=== PATIENT | female | born 1955 | race Caucasian/White ===

== ENCOUNTER 2019-04-18 14:32 | Inpatient (IN) ==
--- OUTSIDE RECORDS SUMMARY | 2019-04-18 14:35 | External Medical Summary | Continuity of Care Document ---
:1955 Author Name Emre Montoya, Provider Address Unavailable Unavailable , Care Team Providers Name Role Phone Edgar Pascale BHAT Unavailable [email or web address] Unavailable [email or web address] Gildardo HUTCHINSON Unavailable Unavailable Unavailable Unavailable Unavailable Problems Cough (786.2) (R05) Obstructive sleep apnea (327.23) (G47.33) Asthma (493.90) (J45.909) Dyslipidemia (272.4) (E78.5) Insulin pump in place (V45.85) (Z96.41) Depression (311) (F32.9) Counseling for insulin pump (V65.46) (Z46.81) Disrupted sleep-wake cycle (307.45) (G47.20) Abrasion of right eye (918.9) (S05.8X1A) Bunion (727.1) (M21.619) Alcohol drinker (V49.89) (Z78.9) Type 1 diabetes mellitus with long-term current use of insulin (250.01) (E10.9) Hypothyroidism (244.9) (E03.9) Hypertension (401.9) (I10) Hypothyroidism, postablative (244.1) (E89.0) Status post gastric bypass for obesity (V45.86) (Z98.84) Graves disease (242.00) (E05.00) Allergies and Adverse Reactions No Known Drug Allergies (Allergy) Medications Lisinopril 2.5 MG Oral Tablet; TAKE ONE-HALF TABLET BY MOUTH ONCE DAILY [facility] Start: 05-Jan-2012 Quantity: 45 Refills: 3 Multivitamin Adult Oral Tablet; TAKE 1 TABLET DAILY. Start: 01-Jan-2018 Refills: 0 Biotin 1000 MCG Oral Tablet Chewable; Take 1 tablet daily Start: 15-Oct-2018 Refills: 0 Vitamin D 1000 UNIT Oral Tablet; TAKE 1 TABLET DAILY. Start: 15-Oct-2018 Refills: 0 buPROPion HCl - 100 MG Oral Tablet; TAKE 1 TABLET DAILY. Refills: 0 Calcium Citrate +D 315-250 MG-UNIT Oral Tablet; TAKE 2 TABLE T Daily Start: 17-Nov-2013 Refills: 0 Ankur Contour Next Test STRP; Testing 6 times daiy. HOME Hern[facility]dez Start: 19-Sep-2013 Quantity: 6 100 EA Box Refills: 3 NovoLOG 100 UNIT/ML Subcutaneous Solutio n; USE 35 UNITS PER SLIDING SCALE IN INSULIN PUMP DAILY HOME Hernández Start: 26-Aug-2018 Quantity: 4 10 ML Vial Refills: 3 Levothyroxine Sodium 175 MCG Oral Tablet ; TAKE 1 TABLET BY MOUTH six days a week . ARIANNA Sidhu Start: 28-Dec-2016 Quantity: 90 Refills: 3 Procedures History of Section Classical St atus: Completed History of Sinus Surgery Status: Complet ed Immunizations Pneumococcal polysaccharide vaccine, 23 valent On: 01-Mar-20 10 Lot #: [id number], [employer] Influenza On: 17-Aug-2014 9:42 Lot #: [id number], [employer] Influenza On: 08-Jul-2015 Influenza On: 08-Aug-2016 Family History Brother Family history of Obstructive Sleep Apnea Status: Active Social History - Smoking Status Former smoker Plan of Treatment Planned Observations Planned Goals not documented Results No Known Results Results not documented Encounters Appointment; Pascale Hernández CRNP 15-Oct-2018 8:30 Encounter Diagnosis: Problem not documented Appointment; Pascale Hernández CRNP 06-May-2018 8:30 Encounter Diagnosis: Problem not documented Appointment; Pascale Hernández CRNP 01-Jan-2018 8:30 Encounter Diagnosis: Problem not documented Appointment; [facility] 26-Oct-2017 11:00 Encounter Diagnosis: Problem not documented Appointment; Pascale Hernández CRNP 03-Jul-2017 8:30 Encounter Diagnosis: Problem not documented Appointment; Pascale Hernández CRNP 14-Apr-2019 15:30 Encounter Diagnosis: Problem not documented
[2019-04-18] MEDS ORDERED: SODIUM CHLORIDE 0.9% 1000ML 2,000 ML IV ONE (15:17)
[2019-04-18] MEDS ORDERED: ACETAMINOPHEN 1,000 MG/100 ML VIAL IV STA (15:21)
[2019-04-18] MEDS ORDERED: ONDANSETRON INJ 2 MG/ML 2 ML VIAL IV STA (15:21)
[2019-04-18 15:54] LABS: Basophils # (auto) 0.01 K/uL (0-0.2); Basophils % (auto) 0.2 %; Eosinophils # (auto) 0.02 K/uL (0-0.5); Eosinophils % (auto) 0.3 %; Hemoglobin 12.4 g/dL (12.0-16.0); Lymphocytes # (auto) 0.67 K/uL (1.2-3.4); Lymphocytes % (auto) 10.2 %; Mean Corpuscular Hgb Conc 32.6 g/dL (32-36); Mean Corpuscular Volume 85.4 fL (80-100); Mean Platelet Volume 9.8 fL (7.4-10.4); Monocytes % (auto) 16.7 %; Neutrophils % (auto) 72.6 %; Platelet Count 127 K/uL (130-400); RDW Coefficient of Variation 13.8 % (11.5-14.5); RDW Standard Deviation 43.5 fL (36.4-46.3); Red Blood Count 4.45 M/uL (4.2-5.4)
[2019-04-18 16:13] LABS: Albumin Level 3.2 gm/dl (3.4-5.0); BUN Creatinine Ratio 12.4 (10-20); Calcium 8.7 mg/dl (8.5-10.1); Creatinine Clr Calc Pharmacy 73.9 ml/min; Est GFR (African American) 108.9; Potassium 4.2 mmol/L (3.5-5.1)
[2019-04-18 16:15] LABS: Bilirubin,Total 0.3 mg/dl (0.2-1); Globulin 3.1 gm/dl (2.5-4.0); Total Protein 6.3 gm/dl (6.4-8.2)
[2019-04-18 17:41] LABS: Appearance Urine Clear (Clear); Bilirubin Urine Negative (Negative); Blood Urine Negative (Negative); Color Urine Dark Yellow; Glucose Urine UA Negative (Negative); Ketones Urine Trace (Negative); Leukocyte Esterase Urine Negative (Negative); Nitrite Urine Negative (Negative); Protein Urine Negative (Negative); Specific Gravity Urine 1.028 (1.000-1.030); Urobilinogen Urine Negative (Negative)
[2019-04-18] MEDS ORDERED: IOVERSOL 100ml IV PRN (19:08)
--- NOTE | 2019-04-18 19:27 | CT Scan Report ---
CT SCAN OF THE ABDOMEN AND PELVIS WITH IV CONTRAST CLINICAL HISTORY: Generalized abdominal pain. COMPARISON STUDY: No priors. TECHNIQUE: Following the IV administration of 94 cc of Optiray 320, CT scan of the abdomen and pelvi s is performed from the lung bases to the proximal femora. Images are reviewed in the axial, sagittal , and coronal planes. IV contrast was administered without complication. Oral contrast was utilized. A dose lowering technique was utilized adhering to the principles of ALARA. CT DOSE: 244.58 mGy.cm FINDINGS: Lung bases: The heart is normal in size and without pericardial effusion. The lung bases are clear no ting bibasilar scarring/atelectasis. Liver: The contrast-enhanced liver is normal in size, contour, and attenuation. Fatty infiltration is seen adjacent to falciform ligament. There is no intrahepatic biliary ductal dilatation. The hepatic veins and portal veins are patent. Gallbladder: The gallbladder is distended but otherwise normal in appearance. Spleen: Normal in size and attenuation. Pancreas: The pancreas is moderately atrophic. There is an indeterminant ill-defined low-attenuation structure seen either within or adjacent the pancreatic tail on image #93. This measures 2.6 x 2.0 cm . Adrenal glands: Unremarkable. Kidneys: The contrast enhanced kidneys are normal in size and without hydronephrosis. The kidneys enh ance symmetrically. Abdominal vasculature: The abdominal aorta is normal in course and caliber noting mild to moderate at herosclerotic calcification. Stomach and bowel: There is wall thickening and edema identified throughout the colon and rectum. The re is associated pericolonic infiltration and fluid. The appearance is consistent with a severe proct ocolitis. Postoperative change is consistent with a history of Tiburcio-en-Y gastric bypass surgery. Ther e is no bowel obstruction. Enteric contrast reaches the colon. The appendix is normal as visualized. Peritoneum: There is trace pelvic ascites. No intraperitoneal free air is seen. There is a small fat- containing umbilical hernia. Lymphadenopathy: Prominent mesenteric lymph nodes measure up to 9 mm in short axis. These are likely on a reactive basis. Pelvic viscera: The bladder is decompressed and not well evaluated. The uterus is normal as imaged. N o adnexal lesion is seen. Surgical clips are noted in the pelvis. Skeletal structures: The skeletal structures are osteopenic. Moderate lumbosacral spondylosis is obse rved. No lytic or blastic lesions are seen. IMPRESSION: 1. Findings are consistent with a severe proctocolitis. This is likely on an infectious or inflammato ry basis in this age group. 2. Postoperative change is consistent with a Tiburcio-en-Y gastric bypass procedure. No bowel obstruction is identified. 3. There is an ill-defined low-attenuation structure seen within or adjacent to the pancreatic tail. This measures up to 2.6 cm and is of indeterminant etiology and significance. Pancreatic neoplasm is the diagnosis of exclusion. Short-term nonemergent GI follow-up is recommended. 4. The gallbladder is distended but otherwise normal in appearance. Correlate with clinical findings and serum bilirubin levels. 5. Prominent mesenteric lymph nodes are likely reactive basis. 6. Additional findings as above. Electronically signed by: Mateo Mckeon M.D. 04/18/2019 7:25 PM
[2019-04-18] MEDS ORDERED: CIPROFLOXACIN 400 MG/200 ML BAG IV STA (19:43)
[2019-04-18] MEDS ORDERED: metroNIDAZOLE 500 MG/100 ML BAG IV STA (19:49)
--- NOTE | 2019-04-18 20:25 | Emergency Department Note ---
Entered by Jenni Whiting acting as a scribe for Rigo Cain MD History of Present Illness General Chief complaint: Dehydration Stated complaint: DEHYDRATION,DIARRHEA Time Seen by Provider: 04/18/19 14:42 Source: patient Mode of arrival: ambulatory Limitations: no limitations History of Present Illness Onset (ago): day(s) 4 Radiation: non-radiation Pain Consistency: + constant Maximum Pain Intensity: 10 Relieved By: + none Exacerbated By: + other (Recent nausea, vomiting and diarrhea) Associated symptoms: + fever/chills, + nausea/vomiting and + other (+diarrhea); no chest pain, no cough (or cold symptoms) and no shortness of breath The patient is a 63 year old female who presents to the ED with complaints of possible dehydration. She state she has experienced nausea, vomiting and diarrhea for the past 4 days. The diarrhea is "like water" and non-bloody. She thinks she has been febrile. She denies any cough or cold symptoms, chest pain or shortness of breath. She denies any recent antibiotic use or recent sick contacts. She did eat a [employer] sandwich 4 days ago that she states may have made her sick. The patient is diabetic but states her sugars have been running normal. She underwent gastric bypass surgery 6 years ago. Home Medications Home Medications Medication Instructions Recorded Confirmed Type biotin 10,000 mcg PO DAILY 04/18/19 04/18/19 History bupropion HCl 100 mg PO DAILY 04/18/19 04/18/19 History calcium carbonate-vitamin D3 1 tab PO BID 04/18/19 04/18/19 History [Calcium 500 + D] cholecalciferol (vitamin D3) 1,000 unit PO DAILY 04/18/19 04/18/19 History [Vitamin D3] cyanocobalamin (vitamin B-12) 1,000 mcg IM .[id number] 04/18/19 04/18/19 History hydroxyzine HCl 25 mg PO Q6H PRN 04/18/19 04/18/19 History insulin aspart U-100 [Novolog 0 unit CONTINUOUS SUBCUTANEOUS 04/18/19 04/18/19 History U-100 Insulin aspart] INFUSION DIRECTED levothyroxine 175 mcg PO DAILY 04/18/19 04/18/19 History lisinopril 1.25 mg PO DAILY 04/18/19 04/18/19 History uynefgfm-xwgp-OB-calcium-mins 1 tab PO DAILY 04/18/19 04/18/19 History [Women's One Daily] venlafaxine 75 mg PO DAILY 04/18/19 04/18/19 History zinc 50 mg PO DAILY 04/18/19 04/18/19 History Allergies Allergy/AdvReac Type Severity Reaction Status Date / Time petrolatum,white AdvReac Severe Swelling Verified 04/18/19 15:50 [From Petroleum Jelly] around eyes Past Med/Surg History Medical History Diabetes mellitus Surgical History History of gastric bypass Social History Feels Safe at Home: Yes Smoking Status: Never smoker Review of Systems See HPI for pertinent positives & negatives. and A total of 10 systems reviewed and were otherwise negative Physical Exam Vital Signs Vital Signs - 24 hr 04/18/19 14:34 04/18/19 15:40 04/18/19 16:21 Temperature 37.6 C H 37.1 C Temperature Source Oral Oral Sepsis Recent Fever Within 48 Hours No Sepsis New/Unexplained Change in Mental Status No Sepsis Action Taken by Nursing No Action Required Pulse Rate 125 H Pulse Rate [Apical] 88 Respiratory Rate 16 20 Respiratory Effort / Characteristics Respiratory Depth Blood Pressure 164/81 H Blood Pressure [Left Arm] 147/75 H Blood Pressure Mean 108 Blood Pressure Mean [Left Arm] 99 Pulse Oximetry 96 97 97 Oxygen Delivery Method Room Air Room Air Room Air 04/18/19 18:00 04/18/19 21:28 Temperature 39 C H Temperature Source Oral Sepsis Recent Fever Within 48 Hours Sepsis New/Unexplained Change in Mental Status Sepsis Action Taken by Nursing Pulse Rate Pulse Rate [Apical] 72 88 Respiratory Rate 20 18 Respiratory Effort / Characteristics Non-Labored Respiratory Depth Normal Blood Pressure Blood Pressure [Left Arm] 147/75 H 161/77 H Blood Pressure Mean Blood Pressure Mean [Left Arm] 99 105 Pulse Oximetry 99 95 Oxygen Delivery Method Room Air GENERAL: Awake, alert, fatigued-appearing, in no distress HENT: Normocephalic, atraumatic. Oropharynx with dry mucous membranes and otherwise unremarkable. EYES: Normal conjunctiva. Sclera non-icteric. NECK: Supple. No nuchal rigidity. FROM. No JVD. RESPIRATORY: CTAB. CARDIAC: Tachycardic heart rate, normal rhythm. Extremities warm and well perfused. Pulses equal. ABDOMEN: Soft, non-distended. Mild lower abdominal tenderness to palpation. No rebound or guarding. No masses. RECTAL: Deferred. MUSCULOSKELETAL: Chest examination reveals no tenderness. The back is symmetrical on inspection without obvious abnormality. There is no CVA tenderness to palpation. No joint edema. LOWER EXTREMITIES: Calves are equal size bilaterally and non-tender. No edema. No discoloration. NEURO: Normal sensorium. No sensory or motor deficits noted. SKIN: No rash or jaundice noted. Course 1502: The patient was evaluated in room C8 and a complete history and physical were performed. 2009: I reevaluated the patient. She is resting comfortably. I discussed her results and my recommendation she remain in the hospital for further evaluation and management and he verbalized complete understanding and agreement. 2030: I discussed the patients case with admitting resident Dr. Crouch, with Dr. Walter, [facility]. The patient will be further evaluated. Consultations Consultation #1: I discussed the patients case with Dr. Walter [facility]. The patient will be further evaluated. Time: 20:30 Administered Medications Sodium Chloride (Nss 1000ml) 1,000 mls @ 999 mls/hr IV .Q1H1M ONE Stop: 04/18/19 22:25 Last Admin: 04/18/19 21:28 Dose: 999 mls/hr Documented by: [id number] Ioversol (Optiray 320 100ml) 94 ml IV ONCE PRN PRN Reason: Interaction Checking Stop: 04/22/19 19:07 Last Admin: 04/18/19 19:09 Dose: 94 ml Documented by: [id number] Discontinued Medications Acetaminophen (Ofirmev) 1,000 mg in 100 mls @ 400 mls/hr IV NOW STA Stop: 04/18/19 15:35 Last Infusion: 04/18/19 16:04 Dose: 0 mls/hr Documented by: [id number] Admin: 04/18/19 15:51 Dose: 400 mls/hr Documented by: [id number] Sodium Chloride (Nss 1000ml) 2,000 mls @ 999 mls/hr IV .Q2H1M ONE Stop: 04/18/19 17:17 Last Infusion: 04/18/19 17:34 Dose: 0 mls/hr Documented by: [id number] Admin: 04/18/19 15:51 Dose: 999 mls/hr Documented by: [id number] Ciprofloxacin (Cipro) 400 mg in 200 mls @ 100 mls/hr IV NOW STA; Protocol Stop: 04/18/19 21:42 Last Infusion: 04/18/19 21:11 Dose: 0 mls/hr Documented by: [id number] Admin: 04/18/19 21:02 Dose: 100 mls/hr Documented by: [id number] Metronidazole (Flagyl) 500 mg in 100 mls @ 100 mls/hr IV NOW STA Stop: 04/18/19 20:48 Last Infusion: 04/18/19 21:12 Dose: 0 mls/hr Documented by: [id number] Admin: 04/18/19 20:02 Dose: 100 mls/hr Documented by: [id number] Ondansetron HCl (Zofran) 4 mg IV NOW STA Stop: 04/18/19 15:22 Last Admin: 04/18/19 15:51 Dose: 4 mg Documented by: [id number] Medical Decision Making Differential Diagnosis Differential diagnoses includes but is not limited to gastritis, peptic ulcer disease, GERD, gallbladder disease, pancreatitis, small bowel obstruction, acute coronary syndrome, pericarditis, ischemic bowel, irritable bowel disease, irritable bowel syndrome, appendicitis, diverticulitis, malignancy, hernia, urinary tract infection, torsion, perforation, trauma, infectious. Medical Records Attestation: I reviewed the patient's medical records. Home Medications Current Medication List: was personally reviewed by me Laboratory Data Attestation: I reviewed the patient's lab results. Result diagrams: 04/18/19 15:40 04/18/19 15:40 Lab Results 04/18/19 04/18/19 04/18/19 Range/Units 15:40 15:40 17:13 WBC 6.60 (4.8-10.8) K/uL RBC 4.45 (4.2-5.4) M/uL Hgb 12.4 (12.0-16.0) g/dL Hct 38.0 (37-47) % MCV 85.4 (80-100) fL MCH 27.9 (25-34) pg MCHC 32.6 (32-36) g/dL RDW Std Deviation 43.5 (36.4-46.3) fL RDW Coeff of Bogdan 13.8 (11.5-14.5) % Plt Count 127 L (130-400) K/uL MPV 9.8 (7.4-10.4) fL Immature Gran % (Auto) 0.0 % Neut % (Auto) 72.6 % Lymph % (Auto) 10.2 % [place] % (Auto) 16.7 % Eos % (Auto) 0.3 % Baso % (Auto) 0.2 % Immature Gran # (Auto) 0.00 (0.00-0.02) K/uL Neut # (Auto) 4.80 (1.4-6.5) K/uL Lymph # (Auto) 0.67 L (1.2-3.4) K/uL [place] # (Auto) 1.10 H (0.11-0.59) K/uL Eos # (Auto) 0.02 (0-0.5) K/uL Baso # (Auto) 0.01 (0-0.2) K/uL Sodium 132 L (136-145) mmol/L Potassium 4.2 (3.5-5.1) mmol/L Chloride 97 L (98-107) mmol/L Carbon Dioxide 31 (21-32) mmol/L Anion Gap 4.0 (3-11) BUN 9 (7-18) mg/dl Creatinine 0.69 (0.6-1.2) mg/dl Est Cr Clr Drug Dosing 73.9 ml/min Est GFR ( Amer) 108.9 Est GFR (Non-Af Amer) 94.0 BUN/Creatinine Ratio 12.4 (10-20) Glucose 143 H (70-99) mg/dl Calcium 8.7 (8.5-10.1) mg/dl Total Bilirubin 0.3 (0.2-1) mg/dl AST 20 (15-37) U/L ALT 21 (12-78) U/L Alkaline Phosphatase 71 (45-117) U/L Total Protein 6.3 L (6.4-8.2) gm/dl Albumin 3.2 L (3.4-5.0) gm/dl Globulin 3.1 (2.5-4.0) gm/dl Albumin/Globulin Ratio 1.0 (0.9-2) Lipase 29 L (73-393) U/L Urine Color Dark Yellow Urine Appearance Clear (Clear) Urine pH 6.0 (4.5-7.5) Ur Specific [place] 1.028 (1.000-1.030) Urine Protein Negative (Negative) Urine Glucose (UA) Negative (Negative) Urine Ketones Trace H (Negative) Urine Blood Negative (Negative) Urine Nitrite Negative (Negative) Urine Bilirubin Negative (Negative) Urine Urobilinogen Negative (Negative) Ur Leukocyte Esterase Negative (Negative) Stl C. diff Tox B Gene (Neg) Stl C.difficile Tox A&B (Negative) 04/18/19 Range/Units 17:15 WBC (4.8-10.8) K/uL RBC (4.2-5.4) M/uL Hgb (12.0-16.0) g/dL Hct (37-47) % MCV (80-100) fL MCH (25-34) pg MCHC (32-36) g/dL RDW Std Deviation (36.4-46.3) fL RDW Coeff of Bogdan (11.5-14.5) % Plt Count (130-400) K/uL MPV (7.4-10.4) fL Immature Gran % (Auto) % Neut % (Auto) % Lymph % (Auto) % [place] % (Auto) % Eos % (Auto) % Baso % (Auto) % Immature Gran # (Auto) (0.00-0.02) K/uL Neut # (Auto) (1.4-6.5) K/uL Lymph # (Auto) (1.2-3.4) K/uL [place] # (Auto) (0.11-0.59) K/uL Eos # (Auto) (0-0.5) K/uL Baso # (Auto) (0-0.2) K/uL Sodium (136-145) mmol/L Potassium (3.5-5.1) mmol/L Chloride (98-107) mmol/L Carbon Dioxide (21-32) mmol/L Anion Gap (3-11) BUN (7-18) mg/dl Creatinine (0.6-1.2) mg/dl Est Cr Clr Drug Dosing ml/min Est GFR ( Amer) Est GFR (Non-Af Amer) BUN/Creatinine Ratio (10-20) Glucose (70-99) mg/dl Calcium (8.5-10.1) mg/dl Total Bilirubin (0.2-1) mg/dl AST (15-37) U/L ALT (12-78) U/L Alkaline Phosphatase (45-117) U/L Total Protein (6.4-8.2) gm/dl Albumin (3.4-5.0) gm/dl Globulin (2.5-4.0) gm/dl Albumin/Globulin Ratio (0.9-2) Lipase (73-393) U/L Urine Color Urine Appearance (Clear) Urine pH (4.5-7.5) Ur Specific [place] (1.000-1.030) Urine Protein (Negative) Urine Glucose (UA) (Negative) Urine Ketones (Negative) Urine Blood (Negative) Urine Nitrite (Negative) Urine Bilirubin (Negative) Urine Urobilinogen (Negative) Ur Leukocyte Esterase (Negative) Stl C. diff Tox B Gene Positive Cdiff Gene H (Neg) Stl C.difficile Tox A&B Positive Cdiff Toxin A* (Negative) Imaging Data Radiologist's Impression: Radiology results as stated below per my review and the radiologist's interpretation: CT SCAN OF THE ABDOMEN AND PELVIS WITH IV CONTRAST CLINICAL HISTORY: Generalized abdominal pain. COMPARISON STUDY: No priors. TECHNIQUE: Following the IV administration of 94 cc of Optiray 320, CT scan of the abdomen and pelvis is performed from the lung bases to the proximal femora. Images are reviewed in the axial, sagittal, and coronal planes. IV contrast was administered without complication. Oral contrast was utilized. A dose lowering technique was utilized adhering to the principles of ALARA. CT DOSE: 244.58 mGy.cm FINDINGS: Lung bases: The heart is normal in size and without pericardial effusion. The lung bases are clear noting bibasilar scarring/atelectasis. Liver: The contrast-enhanced liver is normal in size, contour, and attenuation. Fatty infiltration is seen adjacent to falciform ligament. There is no intrahepatic biliary ductal dilatation. The hepatic veins and portal veins are patent. Gallbladder: The gallbladder is distended but otherwise normal in appearance. Spleen: Normal in size and attenuation. Pancreas: The pancreas is moderately atrophic. There is an indeterminant ill- defined low-attenuation structure seen either within or adjacent the pancreatic tail on image #93. This measures 2.6 x 2.0 cm. Adrenal glands: Unremarkable. Kidneys: The contrast enhanced kidneys are normal in size and without hydronep hrosis. The kidneys enhance symmetrically. Abdominal vasculature: The abdominal aorta is normal in course and caliber noting mild to moderate atherosclerotic calcification. Stomach and bowel: There is wall thickening and edema identified throughout the colon and rectum. There is associated pericolonic infiltration and fluid. The appearance is consistent with a severe proctocolitis. Postoperative change is consistent with a history of Tiburcio-en-Y gastric bypass surgery. There is no bowel obstruction. Enteric contrast reaches the colon. The appendix is normal as visualized. Peritoneum: There is trace pelvic ascites. No intraperitoneal free air is seen. There is a small fat-containing umbilical hernia. Lymphadenopathy: Prominent mesenteric lymph nodes measure up to 9 mm in short axis. These are likely on a reactive basis. Pelvic viscera: The bladder is decompressed and not well evaluated. The uterus is normal as imaged. No adnexal lesion is seen. Surgical clips are noted in the pelvis. Skeletal structures: The skeletal structures are osteopenic. Moderate lumbosacral spondylosis is observed. No lytic or blastic lesions are seen. IMPRESSION: 1. Findings are consistent with a severe proctocolitis. This is likely on an infectious or inflammatory basis in this age group. 2. Postoperative change is consistent with a Tiburcio-en-Y gastric bypass procedure. No bowel obstruction is identified. 3. There is an ill-defined low-attenuation structure seen within or adjacent to the pancreatic tail. This measures up to 2.6 cm and is of indeterminant etiology and significance. Pancreatic neoplasm is the diagnosis of exclusion. Short-term nonemergent GI follow-up is recommended. 4. The gallbladder is distended but otherwise normal in appearance. Correlate with clinical findings and serum bilirubin levels. 5. Prominent mesenteric lymph nodes are likely reactive basis. 6. Additional findings as above. Electronically signed by: Mateo Mckeon M.D. 04/18/2019 7:25 PM Blood Pressure Blood Pressure Findings: Elevated blood pressure Blood Pressure Disposition: further management by hospitalist JOVAN Dupont The patient is a pleasant 63 y/o woman with a pmhx of IDDM1, gastric bypass who presents to the emergency department with n/v/d and feverishness over the past 4 days with inability to tolerate oral intake per HPI. Patient report glucose has remained within her typical range. Patient denies any recent antibiotics. On arrival the patient is in NAD, temp 37.6, HR 125 and otherwise VSS. Patient appears clinically dry. She has mild lower abdominal ttp without guarding or rebound. WBC, H/H wnl. Platelets 127 without prior for comparison. Chemistry without acidosis. LFTs unremarkable. Lipase 29. UA with trace ketones and otherwise negative for infection. CT abd/pelvis demonstrates severe proctocolitis as well as incidental 2cm pancreatic mass. Patient re-evaluated and feeling improved after IVF hydration with HR 80s. Findings were reviewed. Given patient's IDDM1 in the setting of her colitis and poor oral intake reasonable to admit for further management given high risk of decompensation. Patient is agreeable with this. Given she denies any bloody stool, treatment initiated with Cipro/flagyl. Case with admitting resident Dr. Crouch, with Dr. Walter, [facility] Hospitalist. Subsequently Cdiff screen and confirmatory Toxin PCR positive. Additionally, given possible Ecoli infection from recent [employer] salad Cipro discontinued. IV flagyl and or Vancomycin for Cdiff colitis. Additionally tick born illness labs sent given recent camping trip and TCP. Impression & Plan Colitis due to Clostridium difficile, Proctocolitis, Pancreatic mass, Thrombocytopenia Discharge Plan Visit Data Chief Complaint: Dehydration Stated Complaint: DEHYDRATION,DIARRHEA ED Provider: Rigo Cain Discharge Problem: Colitis due to Clostridium difficile, Proctocolitis, Pancreatic mass, Thrombocytopenia Patient Disposition: Being Evaluated by Hospitalist Forms Stand Alone Forms: My [facility] Prescriptions Prescriptions: No Action levothyroxine 175 mcg tablet 175 mcg PO DAILY RF: 0 venlafaxine 75 mg capsule,extended release 24hr 75 mg PO DAILY RF: 0 bupropion HCl 100 mg tablet sustained-release 12 hr 100 mg PO DAILY RF: 0 Novolog U-100 Insulin aspart 100 unit/mL solution continuous subcutaneous infusion DIRECTED RF: 0 biotin 10,000 mcg Capsule 10,000 mcg PO DAILY RF: 0 cyanocobalamin (vitamin B-12) 1,000 mcg/mL solution 1,000 mcg IM .[id number] RF: 0 hydroxyzine HCl 25 mg Tablet 25 mg PO Q6H PRN (Reason: Itching) RF: 0 zinc 50 mg Tablet 50 mg PO DAILY RF: 0 lisinopril 2.5 mg tablet 1.25 mg PO DAILY RF: 0 calcium carbonate-vitamin D3 [Calcium 500 + D] 500 mg(1,250mg) -400 unit Tablet 1 tab PO BID RF: 0 Women's One Daily 18 mg iron-400 mcg-500 mg Ca Tablet 1 tab PO DAILY RF: 0 cholecalciferol (vitamin D3) [Vitamin D3] 1,000 unit Capsule 1,000 unit PO DAILY RF: 0 Referrals Referrals: Brittney Payton MD [Primary Care Provider] - The scribe's documentation has been prepared under my direction and personally reviewed by me in its entirety. I confirm that the note above accurately reflects all work, treatment, procedures, and medical decision making performed by me.
[2019-04-18 21:12] LABS: Cdiff Toxin A+B Positive Cdiff Toxin (Negative)
[2019-04-18] MEDS ORDERED: VANCOMYCIN HCL 125 MG/2.5ML SOLN PO STA (21:24)
[2019-04-18] MEDS ORDERED: SODIUM CHLORIDE 0.9% 1000ML 1,000 ML IV ONE (21:25)
[2019-04-18] MEDS ORDERED: NON-FORMULARY MEDICATION (Insulin Aspart U-100 0 UNITS) continuous subcutaneous infusion SCH (21:30)
--- NOTE | 2019-04-18 21:49 | History & Physical Report ---
Date of Service April 18, 2019 Assessment & Plan (1) Proctocolitis: Pt is a pleasant 63yo F PMH T1DM on insulin pump, hypothyroidism, anxiety and depression, gastric bypass 2012 who presents with a 4 day history of profuse diarrhea, found to have proctocolitis in setting of +c.dif toxin. Proctocolitis/Cdiff -IV flagyl TID and PO vanc QID -Maintenance IVF at 125--pt tolerated food in ER; clinically euvolemic, consider DCing with improved PO intake -DC'd IV cipro in light of low platelets/recent camping hx and concern for anaplasmosis -Awaiting further stool testing and anaplasmosis/lyme/ehrlichia Thrombocytopenia -Mild -DCd IV Cipro -Awaiting further stool testing/anaplasma/ehrlicia/lyme -Continue to monitor Pancreatic mass -Incidental finding on CT, measures 2.6 cm -Pt denies unintentional weight loss, digestive issues prior to current issue -Have consulted GI -Have not ordered MRI in setting of acute inflammatory/infectious process in abdomen -Ca 19-9 ordered for AM DM, type 1 -May use own insulin pump -Continue low dose lisinopril for renal protection -Well controlled -A1C pending for AM H/O gastric bypass -Has been doing well, no issues -Holding home vitamin supplements Hypothyroid -Cont levothyroxine 175mcg -Checking TSH with AM labs Anxiety and Depression -Well controlled with current regimen -Cont hydroxyzine, welbutrin, venlafaxine FEN/GI: Carb count T1DM diet, NSS 125/hr Code: full DVTP: heparin SQ BID Dispo: admit to med/surg (2) Colitis due to Clostridium difficile: (3) Thrombocytopenia: (4) Pancreatic mass: (5) Diabetes mellitus: (6) History of gastric bypass: (7) Hypothyroid: (8) Anxiety and depression: History of Present Illness Chief Complaint: Diarrhea Primary Care Provider: Brittney Payton MD Pt is a pleasant 63yo F PMH T1DM on insulin pump, hypothyroidism, anxiety and depression, gastric bypass 2012 who presents with a 4 day history of profuse diarrhea. She reports she thinks this is related to food poisoning, as her symptoms started within a few hours of eating a salad with meat on it from [employer]. She also does note she has been camping for the past week as well. She states she is having profuse, non-bloody, watery diarrhea, minimal nausea, no vomiting, has felt warm but no measured temperature. She states her appetite has been decreased and has not been eating much. Despite the above, she notes her blood sugars to be relatively WNL and cites her insulin pump with CGM helping to control things. She has not used OTC meds to help with the diarrhea. ER course: Vital signs stable with temp of 39*C. CBC, CMP, UA grossly normal with no elevation in WBC, mildly low platelets at 127, and Na of 132. C.dif + for gene and toxin. CT abdomen revealed "severe proctocolitis" as well as an incidental finding of a pancreatic lesion of 2.6cm. She was started on IV cipro/flagyl prior to her c.dif test resulted. In discussing case with ER physician, due to her recent camping history and low platelets with concern for TTP/HUS, the IV cipro was DCd and further labs studies were sent including anaplasmosis, e.coli, shiga, peripheral smear, lyme, etc. She was started on PO vancomycin. Allergies Allergy/AdvReac Type Severity Reaction Status Date / Time petrmayetum,white AdvReac Severe Swelling Verified 04/18/19 15:50 [From Petroleum Jelly] around eyes Home Medications Home Medications Medication Instructions Recorded Confirmed Type biotin 10,000 mcg PO DAILY 04/18/19 04/18/19 History bupropion HCl 100 mg PO DAILY 04/18/19 04/18/19 History calcium carbonate-vitamin D3 1 tab PO BID 04/18/19 04/18/19 History [Calcium 500 + D] cholecalciferol (vitamin D3) 1,000 unit PO DAILY 04/18/19 04/18/19 History [Vitamin D3] cyanocobalamin (vitamin B-12) 1,000 mcg IM .[id number] 04/18/19 04/18/19 History hydroxyzine HCl 25 mg PO Q6H PRN 04/18/19 04/18/19 History insulin aspart U-100 [Novolog 0 unit CONTINUOUS SUBCUTANEOUS 04/18/19 04/18/19 History U-100 Insulin aspart] INFUSION DIRECTED levothyroxine 175 mcg PO DAILY 04/18/19 04/18/19 History lisinopril 1.25 mg PO DAILY 04/18/19 04/18/19 History oezgexqb-aqad-YM-calcium-mins 1 tab PO DAILY 04/18/19 04/18/19 History [Women's One Daily] venlafaxine 75 mg PO DAILY 04/18/19 04/18/19 History zinc 50 mg PO DAILY 04/18/19 04/18/19 History Past Med/Surg History Medical History Diabetes mellitus Surgical History History of gastric bypass Social History Preferred Language: Botswan[place] Communication Ability: Effective 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 Beliefs That Will Affect Care: None Current Living Situation: Spouse Other Information That Helps Us Care for You: No Feels Safe at Home: Yes Safety Concerns: Feels Safe At This Time Smoking Status: Former smoker Hx Alcohol Use: Yes Alcohol type: wine Hx Substance Use: No Review of Systems Review of Systems: All systems reviewed & are unremarkable except as noted in HPI & below Constitutional: + fever and + weakness; no chills Gastrointestinal: + abdominal pain, + bloating, + nausea, + change in bowel habits and + diarrhea/loose stools; no belching, no vomiting, no fecal incontinence and no blood in stools Physical Exam Constitutional: WD/WN, vitals as above + well hydrated, average body habitus and comfortable; not ill appearing, not in distress, not diaphoretic and not edematous Eyes: PERRL, conjunctivae normal, anicteric sclerae ENMT: external ear and nose normal, oropharynx normal Neck: normal visual inspection Respiratory: normal respiratory effort, lungs clear to auscultation Cardiovascular: RRR, no murmur, no edema Gastrointestinal (Abdomen): Inspection/Auscultation: abdomen normal to inspection and + hyperactive bowel sounds; abdomen not distended and no high- pitched sounds Percussion/Palpation: + abdomen tender (RLQ LLQ) and abdomen soft Musculoskeletal: no cyanosis or clubbing, extremities motor strength 5/5 Skin: no rashes, warm and dry normal turgor Neurologic: PERRL, EOMI, accommodation nl, no face palsy, no dysarthria Psychiatric: A+Ox3, euthymic affect Results & Data Vital Signs (Past 12 Hours) Vital Signs Temp Pulse Pulse Resp BP BP Pulse Ox 04/18/19 21:28 39 C H 88 18 161/77 H 95 04/18/19 18:00 72 20 147/75 H 99 04/18/19 16:21 37.1 C 88 20 147/75 H 97 04/18/19 15:40 97 04/18/19 14:34 37.6 C H 125 H 16 164/81 H 96 Laboratory Results 04/18/19 04/18/19 04/18/19 Range/Units 17:15 17:13 15:40 WBC (4.8-10.8) K/uL RBC (4.2-5.4) M/uL Hgb (12.0-16.0) g/dL Hct (37-47) % MCV (80-100) fL MCH (25-34) pg MCHC (32-36) g/dL RDW Std Deviation (36.4-46.3) fL RDW Coeff of Bogdan (11.5-14.5) % Plt Count (130-400) K/uL MPV (7.4-10.4) fL Immature Gran % (Auto) % Neut % (Auto) % Lymph % (Auto) % [place] % (Auto) % Eos % (Auto) % Baso % (Auto) % Immature Gran # (Auto) (0.00-0.02) K/uL Neut # (Auto) (1.4-6.5) K/uL Lymph # (Auto) (1.2-3.4) K/uL [place] # (Auto) (0.11-0.59) K/uL Eos # (Auto) (0-0.5) K/uL Baso # (Auto) (0-0.2) K/uL Peripher Smr Path Cons Pending Sodium (136-145) mmol/L Potassium (3.5-5.1) mmol/L Chloride (98-107) mmol/L Carbon Dioxide (21-32) mmol/L Anion Gap (3-11) BUN (7-18) mg/dl Creatinine (0.6-1.2) mg/dl Est Cr Clr Drug Dosing ml/min Est GFR ( Amer) Est GFR (Non-Af Amer) BUN/Creatinine Ratio (10-20) Glucose (70-99) mg/dl Calcium (8.5-10.1) mg/dl Total Bilirubin (0.2-1) mg/dl AST (15-37) U/L ALT (12-78) U/L Alkaline Phosphatase (45-117) U/L Total Protein (6.4-8.2) gm/dl Albumin (3.4-5.0) gm/dl Globulin (2.5-4.0) gm/dl Albumin/Globulin Ratio (0.9-2) Lipase (73-393) U/L Urine Color Dark Yellow Urine Appearance Clear (Clear) Urine pH 6.0 (4.5-7.5) Ur Specific [place] 1.028 (1.000-1.030) Urine Protein Negative (Negative) Urine Glucose (UA) Negative (Negative) Urine Ketones Trace H (Negative) Urine Blood Negative (Negative) Urine Nitrite Negative (Negative) Urine Bilirubin Negative (Negative) Urine Urobilinogen Negative (Negative) Ur Leukocyte Esterase Negative (Negative) Stl C. diff Tox B Gene Positive Cdiff Gene H (Neg) Stl C.difficile Tox A&B Positive Cdiff Toxin A* (Negative) 04/18/19 04/18/19 Range/Units 15:40 15:40 WBC 6.60 (4.8-10.8) K/uL RBC 4.45 (4.2-5.4) M/uL Hgb 12.4 (12.0-16.0) g/dL Hct 38.0 (37-47) % MCV 85.4 (80-100) fL MCH 27.9 (25-34) pg MCHC 32.6 (32-36) g/dL RDW Std Deviation 43.5 (36.4-46.3) fL RDW Coeff of Bogdan 13.8 (11.5-14.5) % Plt Count 127 L (130-400) K/uL MPV 9.8 (7.4-10.4) fL Immature Gran % (Auto) 0.0 % Neut % (Auto) 72.6 % Lymph % (Auto) 10.2 % [place] % (Auto) 16.7 % Eos % (Auto) 0.3 % Baso % (Auto) 0.2 % Immature Gran # (Auto) 0.00 (0.00-0.02) K/uL Neut # (Auto) 4.80 (1.4-6.5) K/uL Lymph # (Auto) 0.67 L (1.2-3.4) K/uL [place] # (Auto) 1.10 H (0.11-0.59) K/uL Eos # (Auto) 0.02 (0-0.5) K/uL Baso # (Auto) 0.01 (0-0.2) K/uL Peripher Smr Path Cons Sodium 132 L (136-145) mmol/L Potassium 4.2 (3.5-5.1) mmol/L Chloride 97 L (98-107) mmol/L Carbon Dioxide 31 (21-32) mmol/L Anion Gap 4.0 (3-11) BUN 9 (7-18) mg/dl Creatinine 0.69 (0.6-1.2) mg/dl Est Cr Clr Drug Dosing 73.9 ml/min Est GFR ( Amer) 108.9 Est GFR (Non-Af Amer) 94.0 BUN/Creatinine Ratio 12.4 (10-20) Glucose 143 H (70-99) mg/dl Calcium 8.7 (8.5-10.1) mg/dl Total Bilirubin 0.3 (0.2-1) mg/dl AST 20 (15-37) U/L ALT 21 (12-78) U/L Alkaline Phosphatase 71 (45-117) U/L Total Protein 6.3 L (6.4-8.2) gm/dl Albumin 3.2 L (3.4-5.0) gm/dl Globulin 3.1 (2.5-4.0) gm/dl Albumin/Globulin Ratio 1.0 (0.9-2) Lipase 29 L (73-393) U/L Urine Color Urine Appearance (Clear) Urine pH (4.5-7.5) Ur Specific [place] (1.000-1.030) Urine Protein (Negative) Urine Glucose (UA) (Negative) Urine Ketones (Negative) Urine Blood (Negative) Urine Nitrite (Negative) Urine Bilirubin (Negative) Urine Urobilinogen (Negative) Ur Leukocyte Esterase (Negative) Stl C. diff Tox B Gene (Neg) Stl C.difficile Tox A&B (Negative) Diagnostic Findings CT SCAN OF THE ABDOMEN AND PELVIS WITH IV CONTRAST CLINICAL HISTORY: Generalized abdominal pain. COMPARISON STUDY: No priors. TECHNIQUE: Following the IV administration of 94 cc of Optiray 320, CT scan of the abdomen and pelvis is performed from the lung bases to the proximal femora. Images are reviewed in the axial, sagittal, and coronal planes. IV contrast was administered without complication. Oral contrast was utilized. A dose lowering technique was utilized adhering to the principles of ALARA. CT DOSE: 244.58 mGy.cm FINDINGS: Lung bases: The heart is normal in size and without pericardial effusion. The lung bases are clear noting bibasilar scarring/atelectasis. Liver: The contrast-enhanced liver is normal in size, contour, and attenuation. Fatty infiltration is seen adjacent to falciform ligament. There is no intrahepatic biliary ductal dilatation. The hepatic veins and portal veins are patent. Gallbladder: The gallbladder is distended but otherwise normal in appearance. Spleen: Normal in size and attenuation. Pancreas: The pancreas is moderately atrophic. There is an indeterminant ill- defined low-attenuation structure seen either within or adjacent the pancreatic tail on image #93. This measures 2.6 x 2.0 cm. Adrenal glands: Unremarkable. Kidneys: The contrast enhanced kidneys are normal in size and without hydronephrosis. The kidneys enhance symmetrically. Abdominal vasculature: The abdominal aorta is normal in course and caliber noting mild to moderate atherosclerotic calcification. Stomach and bowel: There is wall thickening and edema identified throughout the colon and rectum. There is associated pericolonic infiltration and fluid. The appearance is consistent with a severe proctocolitis. Postoperative change is consistent with a history of Tiburcio-en-Y gastric bypass surgery. There is no bowel obstruction. Enteric contrast reaches the colon. The appendix is normal as visualized. Peritoneum: There is trace pelvic ascites. No intraperitoneal free air is seen. There is a small fat-containing umbilical hernia. Lymphadenopathy: Prominent mesenteric lymph nodes measure up to 9 mm in short axis. These are likely on a reactive basis. Pelvic viscera: The bladder is decompressed and not well evaluated. The uterus is normal as imaged. No adnexal lesion is seen. Surgical clips are noted in the pelvis. Skeletal structures: The skeletal structures are osteopenic. Moderate lumbosacral spondylosis is observed. No lytic or blastic lesions are seen. IMPRESSION: 1. Findings are consistent with a severe proctocolitis. This is likely on an infectious or inflammatory basis in this age group. 2. Postoperative change is consistent with a Tiburcio-en-Y gastric bypass procedure. No bowel obstruction is identified. 3. There is an ill-defined low-attenuation structure seen within or adjacent to the pancreatic tail. This measures up to 2.6 cm and is of indeterminant etiology and significance. Pancreatic neoplasm is the diagnosis of exclusion. Short-term nonemergent GI follow-up is recommended. 4. The gallbladder is distended but otherwise normal in appearance. Correlate with clinical findings and serum bilirubin levels. 5. Prominent mesenteric lymph nodes are likely reactive basis. 6. Additional findings as above. Electronically signed by: Mateo Mckeon M.D. 04/18/2019 7:25 PM Code Status & VTE Plan Code Status Full VTE Prophylaxis Plan VTE Prophylaxis will be ordered: Yes Supervising Physician Co-Signing Physician Notes Attending addendum: I have physically seen this patient, have supervised the medical residents activities, and agree with the H&P unless as otherwise noted. Assessment and Plan: Severe proctocolitis/C. difficile gene and antigen positive- She reports getting sick a few hours after eating a [employer] salad and thinks she has food poisoning. She had and her were out camping for 4 days, and she is developing thrombocytopenia on laboratory studies. Asked the ED to add E. coli studies to her stools, and hold off on medications other than Flagyl IV and Vanco p.o. until that study comes back normal. Also asked the ED to add anaplasmosis studies and peripheral smear as well. N.p.o., but may have full liquids if feels well enough. Zofran 4 mg IV every 6 hours PRN. IV fluids. Follow serial laboratories and stool studies. Pancreatic tail mass 2.6 cm- Concerning for possible pancreatic CA. Consulting GI to assess problem #1 and #2. Remaining orders and notations as noted. PG Care Time/CCT Total # of Minutes Spent Total Time Spent with Patient: Total time spent is greater than 50% in coordination of care (as documented) at patient's floor/unit and/or counseling patient: Resident Activity Tracking Resident Involvement: Resident Care Provided Care Provided: Adult [facility]
[2019-04-18] MEDS ORDERED: POLYETHYLENE (MIRALAX) 17 GM PACK PO PRN (22:57)
[2019-04-18] MEDS ORDERED: ONDANSETRON INJ 2 MG/ML 2 ML VIAL IV PRN (22:57)
[2019-04-18] MEDS ORDERED: ALUMINUM/MAGNESIUM SUSP 30 ML UDC PO PRN (22:57)
[2019-04-18] MEDS ORDERED: MAGNESIUM HYDROXIDE SUSP 30 ML UDC PO PRN (22:57)
[2019-04-18 23:05] LABS: Cdiff Antigen Positive
[2019-04-18] MEDS ORDERED: GLUCAGON FOR INJ 1 MG VIAL SQ PRN (23:15)
[2019-04-18] MEDS ORDERED: CARBOHYDRATES FOR HYPOGLYCEMIA PO PRN (23:15)
[2019-04-18] MEDS ORDERED: GLUCOSE 40% GEL 15 GM TUBE PO PRN (23:15)
[2019-04-18] MEDS ORDERED: GLUCOSE 10 TABS/TUBE PO PRN (23:15)
[2019-04-18] MEDS ORDERED: DEXTROSE 50% 50 ML SYRINGE IV PRN (23:15)
[2019-04-18] MEDS ORDERED: INSULIN ASPART 100 UNITS/ML VIAL SC PRN (23:15)
[2019-04-18] MEDS: ACETAMINOPHEN 325 MG TAB PO PRN (23:50)
[2019-04-18] MEDS: SODIUM CHLORIDE 0.9% 1000ML 1,000 ML IV SCH (23:50)
[2019-04-18 23:52] LABS: Lyme Ab IgG w/WB Rflx Negative (Negative); Lyme Ab IgM w/WB Rflx Negative (Negative)
[2019-04-19] MEDS ORDERED: VANCOMYCIN HCL 125 MG/2.5ML SOLN PO SCH
[2019-04-19] MEDS ORDERED: RASPBERRY SYRUP 5 ML UDP PO SCH ×2
[2019-04-19] MEDS: VANCOMYCIN HCL 125 MG/2.5ML SOLN PO SCH ×4 (03:35→20:55)
[2019-04-19] MEDS: RASPBERRY SYRUP 5 ML UDP PO SCH ×4 (03:35→20:55)
[2019-04-19] MEDS: metroNIDAZOLE 500 MG/100 ML BAG IV SCH ×3 (03:36→20:54)
[2019-04-19] MEDS: ACETAMINOPHEN 325 MG TAB PO PRN ×3 (03:42→20:55)
[2019-04-19] MEDS ORDERED: IBUPROFEN 600 MG TAB PO STA (04:25)
[2019-04-19] MEDS ORDERED: SODIUM CHLORIDE 0.9% 1000ML 1,000 ML IV ONE (04:25)
[2019-04-19] MEDS: LEVOTHYROXINE SODIUM 175 MCG TABLET PO SCH (04:51)
[2019-04-19 06:07] LABS: Basophils # (auto) 0.02 K/uL (0-0.2); Basophils % (auto) 0.3 %; Eosinophils # (auto) 0.02 K/uL (0-0.5); Eosinophils % (auto) 0.3 %; Hemoglobin 10.8 g/dL (12.0-16.0); Immature Granulocytes # (auto) 0.04 K/uL (0.00-0.02); Immature Granulocytes % (auto) 0.6 %; Lymphocytes # (auto) 0.55 K/uL (1.2-3.4); Lymphocytes % (auto) 8.6 %; Mean Corpuscular Hgb Conc 31.8 g/dL (32-36); Mean Corpuscular Volume 85.6 fL (80-100); Mean Platelet Volume 10.4 fL (7.4-10.4); Monocytes % (auto) 17.1 %; Neutrophils % (auto) 73.1 %; Platelet Count 134 K/uL (130-400); RDW Coefficient of Variation 13.6 % (11.5-14.5); RDW Standard Deviation 43.1 fL (36.4-46.3); Red Blood Count 3.97 M/uL (4.2-5.4); White Blood Count 6.43 K/uL (4.8-10.8)
[2019-04-19 06:21] LABS: INR 1.2 (0.9-1.1)
[2019-04-19 07:16] LABS: Albumin Globulin Ratio 0.9 (0.9-2); Albumin Level 2.3 gm/dl (3.4-5.0); BUN Creatinine Ratio 8.9 (10-20); Bilirubin,Total 0.4 mg/dl (0.2-1); Calcium 7.3 mg/dl (8.5-10.1); Creatinine Clr Calc Pharmacy 92.8 ml/min; Est GFR (African American) 117.3; Est GFR (Non-African American) 101.2; Globulin 2.5 gm/dl (2.5-4.0); Total Protein 4.8 gm/dl (6.4-8.2)
[2019-04-19 07:49] LABS: Estimated Average Glucose 151 mg/dl; Hemoglobin A1C 6.9 % (4.5-5.6)
[2019-04-19] MEDS: LISINOPRIL 2.5 MG TAB PO SCH (08:26)
[2019-04-19] MEDS: SODIUM CHLORIDE 0.9% 1000ML 1,000 ML IV SCH (08:27)
[2019-04-19] MEDS: BuPROPion SR 100 MG TABCR PO SCH (08:28)
[2019-04-19] MEDS: VENLAFAXINE HCL XR 75 MG CAPXR PO SCH (08:28)
[2019-04-19] MEDS: HEPARIN SOD 5,000 UNIT/0.5 ML VIAL SQ SCH ×2 (08:32→20:53)
[2019-04-19] MEDS: NovoLOG INSULIN PUMP SCH ×4 (08:32→20:56)
[2019-04-19] MEDS ORDERED: LEVOTHYROXINE SODIUM 175 MCG TABLET PO SCH (09:00)
--- NOTE | 2019-04-19 11:32 | Consultation Report ---
DATE OF CONSULTATION: 04/18/2019 GI CONSULT NOTE REASON FOR EVALUATION: Pancreatic mass and C. diff colitis. HISTORY OF PRESENT ILLNESS: The patient is a 63-year-old with a 4-day history of profuse diarrhea. She said that she ate a sandwich at a fast-food restaurant earlier in the day and then that evening began experiencing cramps and diarrhea which persist. She presented to the hospital where she was found to be positive for C. diff. CAT scan was performed that showed diffuse inflammation of her colon consistent with C. diff and she has been started on p.o. vancomycin 125 mg 4 times a day for 10 days as well as IV Flagyl 500 mg twice a day. In addition, on the CAT scan, there was an incidental complex cystic mass in the tail of the pancreas. It measured about 2.6 cm. This was an incidental finding. The patient reports no abdominal pain other than associated with her diarrhea. No weight loss or family history of pancreatic cancer. CA 19-9 level has been ordered and is pending at this time. PAST MEDICAL HISTORY: Remarkable for thrombocytopenia, type 1 diabetes, Tiburcio-en-Y gastric bypass surgery, hypothyroidism, anxiety, depression. ALLERGIES: PETROLEUM JELLY. MEDICATIONS: Per list. FAMILY HISTORY: Noncontributory. SOCIAL HISTORY: The patient does not smoke, feel safe at home. REVIEW OF SYSTEMS: Positive for abdominal pain, bloating, nausea, diarrhea and weakness. The remainder is negative. PHYSICAL EXAMINATION: GENERAL: The patient appears awake, alert, in no acute distress. VITAL SIGNS: Blood pressure is 160/75, pulse 80, respirations 18, temperature is 37.1. ABDOMEN: Shows bypass surgery scars. Some tenderness throughout the abdomen. NEUROLOGIC: Nonfocal. LABORATORY: Shows a white count of 6.6, hemoglobin 12.4, platelets are 127,000. IMPRESSION: The patient has Clostridium difficile colitis. She has had no recent antibiotics and no obvious risk factors, but is being treated appropriately with vancomycin and IV Flagyl for a 10-day course. I advised her that there is approximately a 25% risk of relapse after first treatment episode due to the presence of spores germinating. She knows to contact the healthcare professional if this is to occur. The pancreatic lesion is an incidental finding. It does not have any symptoms associated with it, but should be further evaluated when her C. diff is resolved as an outpatient with an endoscopic ultrasound. This could be arranged either through [facility] or locally with a [facility] fringing machine operator such as endoscopic ultrasounds. I gave the patient both options and she will decide prior to discharge and let me know so it can be arranged.
[2019-04-19] MEDS: LACTATED RINGER'S 1,000 ML IV SCH ×2 (14:19→22:05)
--- NOTE | 2019-04-19 16:22 | Family Medicine Progress Note ---
Date of Service April 19, 2019 Assessment & Plan (1) Colitis due to Clostridium difficile: Shelli is a 63yo F with a PMHx of T1DM on insulin pump, hypothyroidism, anxiety and depression, gastric bypass 2012 who presents with a 4 day history of profuse diarrhea, found to have proctocolitis in setting of positive c. difficile testing (PCR &toxin). Proctocolitis/Cdiff - Toxin and PCR C diff positive - Continuing to have diarrhea today -IV flagyl TID and PO vanc QID - Stool cultures pending Thrombocytopenia - Initially on IV cipro, d/genesis and pending anaplasma/ehrlicia testing. 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 Recommend tx with Van/Flagyl 10 days and, - Pancreatic mass is an incidental finding, recommend outpt followup for endoscopic US once c. diff is resolved. -Ca 19-9 pending DM, type 1 -May use own insulin pump -Continue low dose lisinopril for renal protection -Well controlled -A1C 6.9% - She follows with her pump with good glycemic control. Will check BMP daily and add a glucose check HS, convert to AC/HS and move to insulin protocol if her control worsens. H/O gastric bypass -Has been doing well, no issues -Holding home vitamin supplements Hypothyroid -Cont levothyroxine 175mcg -Checking TSH with AM labs Anxiety and Depression -Well controlled with current regimen -Cont hydroxyzine, wellbutrin, venlafaxine FEN/GI: Carb count T1DM diet Code: full DVTP: heparin SQ BID Dispo: admit to med/surg (2) Pancreatic mass: Supervising Physician Co-Signing Physician Notes I have physically seen this patient, have supervised the medical residents activities, and agree with the above progress note unless as otherwise noted. Assessment and Plan: Severe proctocolitis/C. difficile gene and antigen positive- It appears likely that her symptoms are from C. difficile. She has improve with the current anbitoics given. At this moment, will continue with current IVF as patient is also stating that she is somewhat dry. Her HR is also somewhat tachy. Will change to LR. Pancreatic tail mass 2.6 cm- Concerning for possible pancreatic CA. Consulting GI to assess problem #1 and #2. Appreciate input. Physical Exam Constitutional: WD/WN, vitals as above average body habitus and comfortable; not ill appearing, not in distress, not diaphoretic and not edematous Eyes: PERRL, conjunctivae normal, anicteric sclerae ENMT: external ear and nose normal, oropharynx normal Neck: normal visual inspection Respiratory: normal respiratory effort, lungs clear to auscultation Cardiovascular: tachycardic, no murmur, no edema Gastrointestinal (Abdomen): Inspection/Auscultation: abdomen normal to inspection and + hyperactive bowel sounds; abdomen not distended and no high- pitched sounds Percussion/Palpation: + abdomen tender (RLQ LLQ) and abdomen soft Musculoskeletal: no cyanosis or clubbing, extremities motor strength 5/5 Skin: no rashes, warm and dry normal turgor Neurologic: PERRL, EOMI, accommodation nl, no face palsy, no dysarthria Psychiatric: A+Ox3, euthymic affect Remaining orders and notations as noted. Spent 35 minutes in management of patient. Subjective Shelli reports she feels much better today than yesterday. She reports her diarrhea is still present, but improving. Her abdominal pain is improving. She had some fevers and chills overnight. She is fatigued thsi morning, but feels better sitting up and having breakfast. No blood per rectum. No chest pain/SoB. No lightheadedness/dizziness. Review of Systems Review of Systems: Constitutional: Endorses fever, chills, malaise. Denies niranjan ght change Eyes: Denies vision change. Cardiovascular: Denies Chest pain, chest pressure, palpitations, extremity swelling Respiratory: Denies shortness of breath, cough, sputum production, difficulty breathing Gastrointestinal: Endorses improving abdominal pain, diarrhea. Denies vomiting. Genitourinary: Denies pain with urination, urinary urgency, urinary frequency Musculoskeletal: Denies weakness, muscle aches/pain, joint aches/pain Integumentary:Denies rash, lesions, bruising Neurological: Denies headache, numbness, tingling, focal weakness Physical Exam Physical Exam: General: A&Ox3. NAD. Cooperative. HEENT: Atraumatic, normocephalic. Pulm: CTAB A&P. -wheezes, -rales, -rhonchi. Symmetrical chest rise. No increased work of breathing. No respiratory distress. Cardiac: RRR, -mrg. Radial pulses intact and symmetrical. Abdominal: Mildly tender to palpation. Nondistended, soft. BS present. Results & Data Vital Signs (Past 12 Hours) Vital Signs Temp Pulse Resp BP Pulse Ox 04/19/19 16:05 38 C H 104 H 16 133/81 97 04/19/19 14:24 37.3 C 04/19/19 10:50 37.2 C 105/69 04/19/19 08:50 36.8 C 92 H 19 95/63 L 99 04/19/19 05:32 37.8 C H PG Care Time/CCT Total # of Minutes Spent Total Time Spent with Patient: Total time spent is greater than 50% in coordinat ion of care (as documented) at patient's floor/unit and/or counseling patient: Resident Activity Tracking Resident Involvement: Resident Care Provided Care Provided: Adult Hospital Medicine
[2019-04-20] MEDS: VANCOMYCIN HCL 125 MG/2.5ML SOLN PO SCH ×4 (05:21→20:56)
[2019-04-20] MEDS: RASPBERRY SYRUP 5 ML UDP PO SCH ×4 (05:21→20:56)
[2019-04-20] MEDS: metroNIDAZOLE 500 MG/100 ML BAG IV SCH ×3 (05:22→20:56)
[2019-04-20] MEDS: ACETAMINOPHEN 325 MG TAB PO PRN ×2 (05:22→20:59)
[2019-04-20] MEDS: LEVOTHYROXINE SODIUM 175 MCG TABLET PO SCH (05:22)
[2019-04-20] MEDS: LACTATED RINGER'S 1,000 ML IV SCH ×3 (06:18→20:58)
[2019-04-20 06:29] LABS: Calcium 7.9 mg/dl (8.5-10.1); Creatinine Clr Calc Pharmacy 106.3 ml/min; Est GFR (African American) 122.7; Est GFR (Non-African American) 105.9; Potassium 3.8 mmol/L (3.5-5.1)
[2019-04-20] MEDS: LISINOPRIL 2.5 MG TAB PO SCH (08:39)
[2019-04-20] MEDS: BuPROPion SR 100 MG TABCR PO SCH (08:39)
[2019-04-20] MEDS: VENLAFAXINE HCL XR 75 MG CAPXR PO SCH (08:39)
[2019-04-20] MEDS: HEPARIN SOD 5,000 UNIT/0.5 ML VIAL SQ SCH ×2 (08:40→20:57)
[2019-04-20] MEDS: NovoLOG INSULIN PUMP SCH ×4 (08:46→20:58)
--- NOTE | 2019-04-20 17:30 | Family Medicine Progress Note ---
Date of Service April 20, 2019 Assessment & Plan (1) Colitis due to Clostridium difficile: Shelli is a 63yo F with a PMHx of T1DM on insulin pump, hypothyroidism, anxiety and depression, gastric bypass 2012 who presents with a 4 day history of profuse diarrhea, found to have proctocolitis in setting of positive c. difficile testing (PCR &toxin). Proctocolitis/Cdiff - Toxin and PCR C diff positive - Continuing to have diarrhea today, improving -Continue IV flagyl TID and PO vanc QID. If doing well, convert to oral Flagyl tomorrow - Stool cultures preliminary no Salmonella, Shigella, Campylobacter, or Shiga toxin. Thrombocytopenia - Initially on IV cipro, d/genesis and pending anaplasma/ehrlicia testing. - Lyme IgG/IgM negative Pancreatic mass -Incidental finding on CT, measures 2.6 cm -Pt denies unintentional weight loss, digestive issues [employer] - GI consulted. Recommend tx with Vanco/Flagyl 10 days as above - Pancreatic mass is an incidental finding, recommend outpt followup for endoscopic US once c. diff is resolved. -Ca 19-9 pending DM, type 1 -May use own insulin pump -Continue low dose lisinopril for renal protection -Well controlled -A1C 6.9% - She follows with her pump with good glycemic control. Glucose checks being locked AC/at bedtime, glycemic control in the low 100s today H/O gastric bypass -Has been doing well, no issues -Holding home vitamin supplements Hypothyroid -Cont levothyroxine 175mcg -Checking TSH with AM labs Anxiety and Depression -Well controlled with current regimen -Cont hydroxyzine, wellbutrin, venlafaxine FEN/GI: Carb count T1DM diet. Continue LR 125/h and encouraged oral intake Code: full DVTP: heparin SQ BID Dispo: admit to med/surg Supervising Physician Co-Signing Physician Notes I have physically seen this patient, have supervised the medical residents activities, and agree with the above progress note unless as otherwise noted. Assessment and Plan: Severe proctocolitis/C. difficile gene and antigen positive- It appears likely that her symptoms are from C. difficile. She has improve with the current antibiotics given. HR remains elevated, will continue with IVF. Pancreatic tail mass 2.6 cm- Concerning for possible pancreatic CA. Consulting GI to assess problem #1 and #2. Appreciate input. Physical Exam Constitutional: WD/WN, vitals as above average body habitus and comfortable; not ill appearing, not in distress, not diaphoretic and not edematous Eyes: PERRL, conjunctivae normal, anicteric sclerae ENMT: external ear and nose normal, oropharynx normal Neck: normal visual inspection Respiratory: normal respiratory effort, lungs clear to auscultation Cardiovascular: tachycardic, no murmur, no edema Gastrointestinal (Abdomen): Inspection/Auscultation: abdomen normal to inspection and + hyperactive bowel sounds; abdomen not distended and no high- pitched sounds Percussion/Palpation: + abdomen tender (RLQ LLQ) and abdomen soft Musculoskeletal: no cyanosis or clubbing, extremities motor strength 5/5 Skin: no rashes, warm and dry normal turgor Neurologic: PERRL, EOMI, accommodation nl, no face palsy, no dysarthria Psychiatric: A+Ox3, euthymic affect Remaining orders and notations as noted. Spent 25 minutes in management of patient. Subjective Breath reports she has had 3 very loose bowel movements this morning and felt feverish overnight. She feels like she is getting better, about 60% of her normal baseline, but is still very tired. Endorses some chills overnight improved from prior. Endorses some mild stomachache today. She has been able to eat breakfast okay without nausea. She reports she has been following her sugars with good glucose control in the low 100s. No questions or concerns today. Review of Systems Review of Systems: Constitutional: Endorses fever, chills, fatigue overnight. Eyes: Denies vision change. Cardiovascular: Denies Chest pain, chest pressure, palpitations, extremity swelling Respiratory: Denies shortness of breath, cough, sputum production, difficulty breathing Gastrointestinal: Endorses improving abdominal pain, diarrhea. Denies vomiting. Genitourinary: Denies pain with urination, urinary urgency, urinary frequency Musculoskeletal: Denies weakness, muscle aches/pain, joint aches/pain Integumentary:Denies rash, lesions, bruising Neurological: Denies headache, numbness, tingling, focal weakness Physical Exam Physical Exam: General: A&Ox3. NAD. Cooperative. HEENT: Atraumatic, normocephalic. Pulm: CTAB A&P. -wheezes, -rales, -rhonchi. Symmetrical chest rise. No increased work of breathing. No respiratory distress. Cardiac: Tachycardic, -mrg. Radial pulses intact and symmetrical. Abdominal: Mildly tender to palpation in the lower quadrants bilaterally. Nondistended, soft. BS present. Results & Data Vital Signs (Past 12 Hours) Vital Signs Temp Pulse Pulse Resp BP Pulse Ox 04/20/19 16:39 37.3 C 102 H 16 119/74 95 04/20/19 08:49 37.0 C 04/20/19 07:30 36.8 C 103 H 18 132/79 96 04/20/19 05:50 38.2 C H PG Care Time/CCT Total # of Minutes Spent Total Time Spent with Patient: Total time spent is greater than 50% in coordination of care (as documented) at patient's floor/unit and/or counseling patient: Resident Activity Tracking Resident Involvement: Resident Care Provided Care Provided: Adult Hospital Medicine
[2019-04-21] MEDS: metroNIDAZOLE 500 MG/100 ML BAG IV SCH (05:05)
[2019-04-21] MEDS: LEVOTHYROXINE SODIUM 175 MCG TABLET PO SCH (05:05)
[2019-04-21] MEDS: VANCOMYCIN HCL 125 MG/2.5ML SOLN PO SCH ×4 (05:05→20:06)
[2019-04-21] MEDS: RASPBERRY SYRUP 5 ML UDP PO SCH ×4 (05:05→20:05)
[2019-04-21] MEDS: LACTATED RINGER'S 1,000 ML IV SCH (05:05)
[2019-04-21 06:39] LABS: BUN Creatinine Ratio 8.3 (10-20); Calcium 7.8 mg/dl (8.5-10.1); Creatinine Clr Calc Pharmacy 124.4 ml/min; Est GFR (African American) 129.2; Est GFR (Non-African American) 111.5; Potassium 3.6 mmol/L (3.5-5.1)
--- NOTE | 2019-04-21 06:56 | Family Medicine Progress Note ---
Date of Service April 21, 2019 Assessment & Plan (1) Colitis due to Clostridium difficile: Shelli is a 63yo woman with a PMHx of T1DM on insulin pump, hypothyroidism on replacement, anxiety and depression, and hx of gastric bypass (2012) on Day 3 of her hospital stay for proctocolitis secondary to positive c. difficile testing (PCR & toxin). Proctocolitis secondary to community-acquired C.diff infection - Toxin and PCR C. diff positive on admission - reported one episode of watery diarrhea today -Continue PO vanc QID; converted IV flagy to PO, 500mg, tid. -Discontinued IVF as patient is tolerating PO intake - Stool cultures preliminary no Salmonella, Shigella, Campylobacter, or Shiga toxin. Pancreatic mass -Incidental finding on CT, measures 2.6 cm -no B symptoms or digestive issues, per patient - GI consulted, appreciate recs -will place referral to outside GI for patient to get endoscopic ultrasound for further characterization of mass -Ca 19-9 pending Thrombocytopenia -resolved -platelet count normalized to 134 K/uL - Lyme IgG/IgM negative -pending anaplasma/ehrlicia testing DM, type 1 - well controlled -A1C 6.9% - patient using own insulin pump -Continue low dose lisinopril 1.25mg for renal protection - Continue glucose checks being locked AC/at bedtime, sugar level in 130 this am H/O gastric bypass -Continue to hold home vitamin supplements Hypothyroidism - well controlled -Cont levothyroxine 175mcg -TSH from 04/19 was 1.17 Anxiety and Depression -Well controlled with current regimen, per patient -Cont home hydroxyzine, wellbutrin, venlafaxine FEN/GI: Carb count T1DM diet. Discontinued IVF and encouraged oral intake of solids and liquids Code: full DVTP: heparin SQ BID Dispo: admit to med/surg Supervising Physician Co-Signing Physician Notes Patient seen and examined with Dr. Chapa. Agree with history, exam findings, assessment and plan of care as outlined. Doing well. Still some loose stool, but no fever and abdominal pain improving. Starting to eat and drink. Denies nausea, vomiting or abd pain with eating. 63yo F with a PMHx of T1DM on insulin pump, hypothyroidism, anxiety and depression, gastric bypass 2012 who presents with a 4 day history of profuse diarrhea, found to have proctocolitis in setting of positive c. difficile testing (PCR &toxin). 1. Proctocolitis/Cdiff. Improving. - Toxin and PCR C diff positive, on IV flagyl TID and PO vanc QID. Convert to oral Flagyl today. - other stool studies negative. - stop IVFs 2. Thrombocytopenia - Initially on IV cipro, d/genesis and pending anaplasma/ehrlicia testing. - Lyme IgG/IgM negative 3. Pancreatic mass - Incidental finding on CT, measures 2.6 cm - appreciate GI inputEUS as an outpatient after C diff resolves. CA19-9 pending. 4. DM, type 1, well controlled, A1C 6.9 -May use own insulin pump -Continue low dose lisinopril for renal protection 5. H/O gastric bypass -Has been doing well, no issues. Holding home vitamin supplements 6. Hypothyroid - Cont levothyroxine 175mcg 7. Anxiety and Depression, well controlled -Cont hydroxyzine, wellbutrin, venlafaxine Potentially dc home tomorrow if doing well on oral meds and tolerating PO. Lindy Marques is a 63 yo woman on Day 3 of her hospital stay for severe proctocolitis secondary to C.diff infection. She had no acute events overnight. She is tolerating PO intake of both liquids and solid food. She is voiding and stooling without difficulty. She continues to have non-bloody, non-bilious, watery diarrhea, reporting one episode thus far today. She is feeling much better and notes that her hydration status is improved (her mouth feels moist). Review of Systems Constitutional: no fever, no chills and no sweats Gastrointestinal: + abdominal pain, + bloating and + diarrhea/loose stools Physical Exam Constitutional: well developed, well nourished and comfortable Eyes: + anicteric sclerae Respiratory: normal respiratory effort, lungs clear to auscultation Auscultation: no crackles, no rales and no wheezes Cardiovascular: RRR, no murmur, no edema Heart Sounds: normal S1 and normal S2; no click, no gallop, no murmur and no cardiac rub Gastrointestinal (Abdomen): Inspection/Auscultation: abdomen normal to inspection and normal bowel sounds Percussion/Palpation: abdomen soft soft, +tender in RUQ, RLQ and LLQ; non-distended; no guarding; 1 midline vertical well-healed scar below umbilicus (approximately 6cm), 2 horizontal well-healed scars above umbilicus (approximately 2 cm) consistent with prior gastric bypass operation Neurologic: No focal deficits Psychiatric: A+Ox3, euthymic affect Results & Data Vital Signs (Past 12 Hours) Vital Signs Temp Pulse Resp BP Pulse Ox 04/20/19 22:56 37.1 C 89 18 105/62 98 Laboratory Results 04/21/19 04/18/19 Range/Units 05:29 15:40 Peripher Smr Path Cons Sodium 137 (136-145) mmol/L Potassium 3.6 (3.5-5.1) mmol/L Chloride 103 (98-107) mmol/L Carbon Dioxide 30 (21-32) mmol/L Anion Gap 4.0 (3-11) BUN 3 L (7-18) mg/dl Creatinine 0.41 L (0.6-1.2) mg/dl Est Cr Clr Drug Dosing 124.4 ml/min Est GFR ( Amer) 129.2 Est GFR (Non-Af Amer) 111.5 BUN/Creatinine Ratio 8.3 L (10-20) Glucose 135 H (70-99) mg/dl Calcium 7.8 L (8.5-10.1) mg/dl Medications Administered Current Inpatient Medications Acetaminophen (Tylenol) 650 mg PO Q4H PRN PRN Reason: pain/fever Stop: 05/18/19 22:56 Last Admin: 04/20/19 20:59 Dose: 650 mg Documented by: Al Hydrox/Mg Hydrox/Simethicone (Maalox) 30 ml PO Q6H PRN PRN Reason: Dyspepsia Stop: 05/18/19 22:56 Bupropion HCl (Wellbutrin-Sr) 100 mg PO DAILY SEMAJ Stop: 05/19/19 08:59 Last Admin: 04/21/19 08:14 Dose: 100 mg Documented by: Dextrose (Dextrose 50%) 25 - 50 ml IV UD PRN; Protocol PRN Reason: Hypoglycemia Protocol Stop: 05/18/19 23:14 Glucagon (Glucagen) 1 mg SQ UD PRN; Protocol PRN Reason: Hypoglycemia Protocol Stop: 05/18/19 23:14 Glucose (Glucose 40%) 15 - 30 gm PO UD PRN; Protocol PRN Reason: Hypoglycemia Protocol Stop: 05/18/19 23:14 Glucose (Dex4 Glucose) 4 - 8 tabs PO UD PRN; Protocol PRN Reason: Hypoglycemia Protocol Stop: 05/18/19 23:14 Heparin Sodium (Porcine) (Heparin Sodium (Porcine)) 5,000 units SQ Q12 SEMAJ Stop: 05/19/19 08:59 Last Admin: 04/21/19 08:15 Dose: Not Given Documented by: Hydroxyzine HCl (Vistaril) 25 mg PO Q6H PRN PRN Reason: Itching Stop: 05/18/19 21:27 Insulin Aspart (Novolog Insulin Pump) 1 ea N/A ACHS [facility]; Protocol Stop: 05/19/19 07:29 Last Admin: 04/21/19 12:30 Dose: Not Given Documented by: Insulin Aspart (Novolog Aspart) 0 units SC PRN PRN PRN Reason: Hyperglycemia Protocol Stop: 05/18/19 23:14 Ioversol (Optiray 320 100ml) 94 ml IV ONCE PRN PRN Reason: Interaction Checking Stop: 04/22/19 19:07 Last Admin: 04/18/19 19:09 Dose: 94 ml Documented by: Levothyroxine Sodium (Synthroid) 175 mcg PO DAILYBB [facility] Stop: 05/19/19 06:29 Last Admin: 04/21/19 05:05 Dose: 175 mcg Documented by: Lisinopril (Zestril) 1.25 mg PO DAILY [facility] Stop: 05/19/19 08:59 Last Admin: 04/21/19 08:13 Dose: 1.25 mg Documented by: Magnesium Hydroxide (Milk Of Magnesia) 30 ml PO Q6H PRN PRN Reason: Constipation Stop: 05/18/19 22:56 Metronidazole (Flagyl) 500 mg PO TID [facility]; Protocol Stop: 04/29/19 08:59 Miscellaneous (Carbohydrates For Hypoglycemia) 15 - 30 gm PO UD PRN PRN Reason: Hypoglycemia Treatment Stop: 05/18/19 23:14 Ondansetron HCl (Zofran) 4 mg IV Q6H PRN PRN Reason: Nausea Stop: 05/18/19 22:56 Last Admin: 04/19/19 18:10 Dose: 4 mg Documented by: Polyethylene Glycol (Miralax Powder Packet) 17 gm PO DAILY PRN PRN Reason: Constipation Stop: 05/18/19 22:56 Raspberry (Raspberry) 5 ml PO Q6H SEMAJ Stop: 05/03/19 03:59 Last Admin: 04/21/19 10:31 Dose: 5 ml Documented by: Vancomycin HCl (Vancomycin Hcl) 125 mg PO Q6H [facility] Stop: 04/29/19 03:59 Last Admin: 04/21/19 10:31 Dose: 125 mg Documented by: Venlafaxine HCl (Effexor Extended Release) 75 mg PO DAILY [facility] Stop: 05/19/19 08:59 Last Admin: 04/21/19 08:14 Dose: 75 mg Documented by: PG Care Time/CCT Total # of Minutes Spent Total Time Spent with Patient: Total time spent is greater than 50% in coordination of care (as documented) at patient's floor/unit and/or counseling patient: Resident Activity Tracking Resident Involvement: Resident Care Provided Care Provided: Adult Hospital Medicine
[2019-04-21] MEDS: LISINOPRIL 2.5 MG TAB PO SCH (08:13)
[2019-04-21] MEDS: VENLAFAXINE HCL XR 75 MG CAPXR PO SCH (08:14)
[2019-04-21] MEDS: BuPROPion SR 100 MG TABCR PO SCH (08:14)
[2019-04-21] MEDS: HEPARIN SOD 5,000 UNIT/0.5 ML VIAL SQ SCH ×2 (08:15→20:05)
[2019-04-21] MEDS: NovoLOG INSULIN PUMP SCH ×4 (08:18→20:05)
[2019-04-21] MEDS: metroNIDAZOLE 500 MG TAB PO SCH ×2 (14:14→20:04)
--- NOTE | 2019-04-21 16:22 | Progress Note ---
DATE: 04/21/2019 The patient remains in the hospital on treatment for C. diff colitis. She also was found on CT to have an incidental 2.6 cm complex cystic mass in the tail of the pancreas. I talked about the options for getting an endoscopic ultrasound including traveling to [place] or getting it locally with a sanding machine operator or tender in the [facility] group. She has opted to stay in town and I would recommend getting a referral to one of the [facility] gastroenterologists that does endoscopic ultrasounds that can be done as an outpatient once her C. diff colitis has been eradicated.
[2019-04-22] MEDS: VANCOMYCIN HCL 125 MG/2.5ML SOLN PO SCH ×2 (03:46→10:27)
[2019-04-22] MEDS: RASPBERRY SYRUP 5 ML UDP PO SCH ×2 (03:46→10:27)
[2019-04-22 05:44] LABS: Hematocrit (blood only) 32.3 % (37-47); Hemoglobin 10.5 g/dL (12.0-16.0); Mean Corpuscular Hgb Conc 32.5 g/dL (32-36); Mean Corpuscular Volume 83.7 fL (80-100); Mean Platelet Volume 9.3 fL (7.4-10.4); Platelet Count 202 K/uL (130-400); RDW Coefficient of Variation 13.8 % (11.5-14.5); RDW Standard Deviation 42.3 fL (36.4-46.3); Red Blood Count 3.86 M/uL (4.2-5.4)
[2019-04-22] MEDS: LEVOTHYROXINE SODIUM 175 MCG TABLET PO SCH (05:59)
[2019-04-22 06:22] LABS: BUN Creatinine Ratio 10.2 (10-20); Calcium 7.8 mg/dl (8.5-10.1); Creatinine Clr Calc Pharmacy 113.4 ml/min; Est GFR (African American) 125.3; Est GFR (Non-African American) 108.1; Potassium 4.2 mmol/L (3.5-5.1)
[2019-04-22] MEDS: metroNIDAZOLE 500 MG TAB PO SCH (08:07)
[2019-04-22] MEDS: LISINOPRIL 2.5 MG TAB PO SCH (08:08)
[2019-04-22] MEDS: VENLAFAXINE HCL XR 75 MG CAPXR PO SCH (08:09)
[2019-04-22] MEDS: HEPARIN SOD 5,000 UNIT/0.5 ML VIAL SQ SCH (08:09)
[2019-04-22] MEDS: BuPROPion SR 100 MG TABCR PO SCH (08:09)
[2019-04-22] MEDS: NovoLOG INSULIN PUMP SCH (08:10)
--- NOTE | 2019-04-22 09:08 | Discharge Summary ---
Date of Service April 22, 2019 Admission HPI Per Admitting Provider Pt is a pleasant 63yo F PMH T1DM on insulin pump, hypothyroidism, anxiety and depression, gastric bypass 2012 who presents with a 4 day history of profuse diarrhea. She reports she thinks this is related to food poisoning, as her symptoms started within a few hours of eating a salad with meat on it from [employer]. She also does note she has been camping for the past week as well. She states she is having profuse, non-bloody, watery diarrhea, minimal nausea, no vomiting, has felt warm but no measured temperature. She states her appetite has been decreased and has not been eating much. Despite the above, she notes her blood sugars to be relatively WNL and cites her insulin pump with CGM helping to control things. She has not used OTC meds to help with the diarrhea. ER course: Vital signs stable with temp of 39*C. CBC, CMP, UA grossly normal with no elevation in WBC, mildly low platelets at 127, and Na of 132. C.dif + for gene and toxin. CT abdomen revealed "severe proctocolitis" as well as an incidental finding of a pancreatic lesion of 2.6cm. She was started on IV cipro/flagyl prior to her c.dif test resulted. In discussing case with ER physician, due to her recent camping history and low platelets with concern for TTP/HUS, the IV cipro was DCd and further labs studies were sent including anaplasmosis, e.coli, shiga, peripheral smear, lyme, etc. She was started on PO vancomycin. Discharge Data Consultations 04/18/19 20:06 ED Decision to Admit Stat 04/18/19 22:57 Consult Gastroenterology Routine Hospital Course (1) Colitis due to Clostridium difficile: Patient was found to have severe proctocolitis on CT scan and tested positive for C diff toxin and PCR on admission. She was initially treated with vancomycin 125mg PO QID and flagyl 500 mg TID, before being converted to oral regimen. She was also given IVF while under our care. Other stool studies were negative. An incidental pancreatic mass, measuring 2.6 cm, was found on CT. GI service was consulted and recommended EUS as an outpatient after C diff resolves. CA19-9 level was 33. Thrombocytopenia was present on admission. Patient was initially on IV ciprofloxacin, but this was discontinued. Lyme IgG/IgM negative and anaplasma/ehrlicia testing is pending. Platelet level normalized to 202 on the day of discharge. Ongoing medical issues: Type I Diabetes Mellitus: well controlled on insulin pump. A1C drawn on admission was 6.9%. Low dose lisinopril 1.25 mg daily was maintained for renal protection. H/O gastric bypass: home vitamin supplements were held as inpatient; can resume upon discharge Hypothyroidism - well controlled on current dose of levothyroxine 175mcg. TSH drawn on 04/19 was 1.17. Anxiety and Depression: home regimen of hydroxyzine 25 mg q6hrs, wellbutrin 100mg daily, venlafaxine 75 mg daily continued as inpatient. (2) Pancreatic mass: (3) Thrombocytopenia: (4) Diabetes mellitus: (5) History of gastric bypass: (6) Hypothyroid: (7) Anxiety and depression:
--- NOTE | 2019-04-22 09:10 | Discharge Summary ---
Date of Service April 22, 2019 Admission HPI Per Admitting Provider Pt is a pleasant 63yo F PMH T1DM on insulin pump, hypothyroidism, anxiety and depression, gastric bypass 2012 who presents with a 4 day history of profuse diarrhea. She reports she thinks this is related to food poisoning, as her symptoms started within a few hours of eating a salad with meat on it from [employer]. She also does note she has been camping for the past week as well. She states she is having profuse, non-bloody, watery diarrhea, minimal nausea, no vomiting, has felt warm but no measured temperature. She states her appetite has been decreased and has not been eating much. Despite the above, she notes her blood sugars to be relatively WNL and cites her insulin pump with CGM helping to control things. She has not used OTC meds to help with the diarrhea. ER course: Vital signs stable with temp of 39*C. CBC, CMP, UA grossly normal with no elevation in WBC, mildly low platelets at 127, and Na of 132. C.diff + for gene and toxin. CT abdomen revealed "severe proctocolitis" as well as an incidental finding of a pancreatic lesion of 2.6cm. She was started on IV cipro/flagyl prior to her c.diff test resulted. In discussing case with ER physician, due to her recent camping history and low platelets with concern for TTP/HUS, the IV cipro was DCd and further labs studies were sent including anaplasmosis, e.coli, shiga, peripheral smear, lyme, etc. She was started on PO vancomycin. Admission Exam Per Admitting Provider Constitutional: WD/WN, vitals as above + well hydrated, average body habitus and comfortable; not ill appearing, not in distress, not diaphoretic and not edematous Eyes: PERRL, conjunctivae normal, anicteric sclerae ENMT: external ear and nose normal, oropharynx normal Neck: normal visual inspection Respiratory: normal respiratory effort, lungs clear to auscultation Cardiovascular: RRR, no murmur, no edema Gastrointestinal (Abdomen): Inspection/Auscultation: abdomen normal to inspection and + hyperactive bowel sounds; abdomen not distended and no high- pitched sounds Percussion/Palpation: + abdomen tender (RLQ LLQ) and abdomen soft Musculoskeletal: no cyanosis or clubbing, extremities motor strength 5/5 Skin: no rashes, warm and dry normal turgor Neurologic: PERRL, EOMI, accommodation nl, no face palsy, no dysarthria Psychiatric: A+Ox3, euthymic affect Principal Diagnosis Clostridium difficile colitis Discharge Exam Constitutional well developed, well nourished and + well hydrated; no acute distress Eyes + anicteric sclerae Respiratory normal respiratory effort, lungs clear to auscultation Auscultation: no crackles, no rales, no rhonchi, no wheezes and no pleural rub Cardiovascular RRR, no murmur, no edema Heart Sounds: normal S1 and normal S2; no click, no gallop, no murmur and no cardiac rub Gastrointestinal (Abdomen) Inspection/Auscultation: abdomen normal to inspection, normal bowel sounds and + abdominal surgical scar (consistent with prior gastric bypass); abdomen not distended Percussion/Palpation: abdomen soft; no guarding and no hepatosplenomegaly tender to palpation in RLQ and LLQ Neurologic No focal deficits Psychiatric A+Ox3, euthymic affect Orientation: cooperative Discharge Data Allergies Allergy/AdvReac Type Severity Reaction Status Date / Time petrolatum,white AdvReac Severe Swelling Verified 04/18/19 15:50 [From Petroleum Jelly] around eyes Consultations 04/18/19 20:06 ED Decision to Admit Stat 04/18/19 22:57 Consult Gastroenterology Routine Ordered Studies 04/18/19 15:17 CT abd pelvis oral and IV con Stat Hospital Course (1) Colitis due to Clostridium difficile: Patient was found to have severe proctocolitis on CT scan and tested positive for C diff toxin and PCR on admission. She was initially treated with vancomycin 125mg PO QID and flagyl 500 mg TID, before being converted to oral regimen. She was also given IVF while under our care. Other stool studies were negative. An incidental pancreatic mass, measuring 2.6 cm, was found on CT. GI service was consulted and recommended EUS as an outpatient with [facility] after C diff resolves. CA19-9 level was 33. Thrombocytopenia was present on admission. Patient was initially on IV ciprofloxacin, but this was discontinued. Lyme IgG/IgM negative and anaplasma/ehrlicia testing is pending. Platelet level normalized to 202 on the day of discharge. Ongoing medical issues: Type I Diabetes Mellitus: well controlled on insulin pump. A1C drawn on admission was 6.9%. Low dose lisinopril 1.25 mg daily was maintained for renal protection. H/O gastric bypass: home vitamin supplements were held as inpatient; can resume upon discharge Hypothyroidism - well controlled on current dose of levothyroxine 175mcg. TSH drawn on 04/19 was 1.17. Anxiety and Depression: home regimen of hydroxyzine 25 mg q6hrs, wellbutrin 100mg daily, venlafaxine 75 mg daily continued as inpatient. (2) Pancreatic mass: (3) Thrombocytopenia: (4) Diabetes mellitus: (5) History of gastric bypass: (6) Hypothyroid: (7) Anxiety and depression: Total Time Total Time Spent Total Time Spent (In Minutes): greater than 35 minutes Discharge Plan Discharge Items Patient Disposition: Home - Self-Care Reason For Visit: C.DIFF, PROCTOCOLITIS Discharge Diagnosis: C.diff infection, colon inflammation Discharge Goals: Decrease discomfort and Learn about illness Activity: Per 'Additional Instructions' section Non-emergency contact: Primary Care Provider and Psychic Reader Call non-emergency contact if: you have any medication questions Follow-up/Referrals: Brittney Payton MD [Primary Care Provider] - Diet: Carb Count or DM1 Addtl Provider Instructions: You were admitted to [facility] on 04/18/2019 for an infection of your colon, known as "clostridium difficile" or "c.diff." We treated this with antibiotics and you improved while under our care. Please continue to take the following antibiotics as directed until 04/29/19: Vancomycin, 125 mg, by mouth, 4 times daily (every 6 hours) and Flagyl, 500mg, by mouth, three times daily. Scripts for both antibiotics have been sent to your preferred pharmacy. You should continue to wash your hands with warm soapy water after using the restroom and before preparing food. You should wash your bed sheets with hot water after completing your antibiotic course. You have no physical restrictions at this point. It is important that you follow up with [facility] regarding the findings on your pancreas shortly after completing your antibiotic course. We made an appointment for you at the [facility] for 1:50pm tomorrow (04/23) to follow up on your hospital stay. Prescriptions: New metronidazole 500 mg Tablet 500 mg PO TID 20 Days Qty: 60 RF: 0 vancomycin 125 mg capsule 125 mg PO Q6H Qty: 26 RF: 0 Continued levothyroxine 175 mcg tablet 175 mcg PO DAILY RF: 0 venlafaxine 75 mg capsule,extended release 24hr 75 mg PO DAILY RF: 0 bupropion HCl 100 mg tablet sustained-release 12 hr 100 mg PO DAILY RF: 0 Novolog U-100 Insulin aspart 100 unit/mL solution continuous subcutaneous infusion DIRECTED RF: 0 biotin 10,000 mcg Capsule 10,000 mcg PO DAILY RF: 0 cyanocobalamin (vitamin B-12) 1,000 mcg/mL solution 1,000 mcg IM .[id number] RF: 0 hydroxyzine HCl 25 mg Tablet 25 mg PO Q6H PRN (Reason: Itching) RF: 0 zinc 50 mg Tablet 50 mg PO DAILY RF: 0 lisinopril 2.5 mg tablet 1.25 mg PO DAILY RF: 0 calcium carbonate-vitamin D3 [Calcium 500 + D] 500 mg(1,250mg) -400 unit Tablet 1 tab PO BID RF: 0 Women's One Daily 18 mg iron-400 mcg-500 mg Ca Tablet 1 tab PO DAILY RF: 0 cholecalciferol (vitamin D3) [Vitamin D3] 1,000 unit Capsule 1,000 unit PO DAILY RF: 0 Stand-Alone Forms: Discharge [facility], [facility] Discharge Orders: Discharge Order (Routine); Ordered 04/22/19 Ordered By: Dilcia Chapa Admission Data Admit Date/Time: 04/18/19 21:43 Attending Provider: Roque Frank Admit Provider: Mirza Walter Primary Care Provider: Brittney Payton Other Providers: Mirza Walter ; Silvestre Brunner Service: Medical Other Interventions: Discharge Summary Assessment (RN) Last Done: 04/22/19 12:14 DC Date/Time DO NOT enter until pt leaves facility: 04/22/19 14:31 Supervising Physician Co-Signing Physician Notes Patient seen and examined with Dr. Chapa. Agree with history, exam findings, assessment and plan of care as outlined. Doing well. Still some loose stool, but no fever and abdominal pain improving. Starting to eat and drink. Denies nausea, vomiting or abd pain with eating. 63yo F with a PMHx of T1DM on insulin pump, hypothyroidism, anxiety and depression, gastric bypass 2012 who presents with a 4 day history of profuse diarrhea, found to have proctocolitis in setting of positive c. difficile testing (PCR &toxin). 1. Proctocolitis/Cdiff. Improving. - Toxin and PCR C diff positive, tolerating PO, stools have slowed down. On oral vanc and flagyl. - other stool studies negative. 2. Thrombocytopenia - Initially on IV cipro, d/genesis and pending anaplasma/ehrlicia testing. - Lyme IgG/IgM negative 3. Pancreatic mass - Incidental finding on CT, measures 2.6 cm - appreciate GI inputEUS as an outpatient after C diff resolves. CA19-9 pending. 4. DM, type 1, well controlled, A1C 6.9 -May use own insulin pump -Continue low dose lisinopril for renal protection Other chronic issues stable and home medications continued. DC home today.
[2019-04-22 12:54] LABS: Ehrlichia chaff DNA Bld Not Detected (Not Detected)
[2019-04-22 16:27] LABS: Anaplasma phagocytophila IgM <1:20 (<1:20); Ehrlichia chaff IgG Ab <1:64 (<1:64); Ehrlichia chaff IgM Ab <1:20 (<1:20); RMSF IgG Ab Not Detected (Not Detected); RMSF IgM Ab Not Detected (Not Detected)
== END 2019-04-22 14:31 | disposition home or self-care (01) | DRG 373 ==
LOC: ED 14:32 → 4E 21:43 → SUATTDRO 21:43 → 4E 22:16

== ENCOUNTER 2021-07-22 15:55 | Inpatient (IN) ==
[2021-07-22 19:39] LABS: Basophils # (auto) 0.02 K/uL (0-0.2); Basophils % (auto) 0.3 %; Eosinophils # (auto) 0.04 K/uL (0-0.5); Eosinophils % (auto) 0.6 %; Hematocrit (blood only) 38.8 % (37-47); Hemoglobin 12.3 g/dL (12.0-16.0); Immature Granulocytes # (auto) 0.01 K/uL (0.00-0.02); Immature Granulocytes % (auto) 0.1 %; Lymphocytes # (auto) 1.94 K/uL (1.2-3.4); Lymphocytes % (auto) 28.5 %; Mean Corpuscular Hgb Conc 31.7 g/dL (32-36); Mean Corpuscular Volume 88.4 fL (80-100); Monocytes # (auto) 0.68 K/uL (0.11-0.59); Neutrophils # (auto) 4.11 K/uL (1.4-6.5); Neutrophils % (auto) 60.5 %; Platelet Count 209 K/uL (130-400); RDW Coefficient of Variation 14.6 % (11.5-14.5); RDW Standard Deviation 47.3 fL (36.4-46.3); Red Blood Count 4.39 M/uL (4.2-5.4)
--- NOTE | 2021-07-22 19:41 | XRay Report ---
XR chest 1V portable CLINICAL HISTORY: Shortness of breath. COMPARISON STUDY: Chest radiograph June 21, 2015. FINDINGS: Lung volumes are normal. There is no pneumothorax or pleural effusion. Mild right basilar o pacity is present. Cardiac size is at the upper limits of normal. IMPRESSION: Mild right basilar opacity. This may reflect a small focus of pneumonia or atelectasis. Radiographic follow-up to ensure resolution is recommended. ACT 112: Negative or not required by law. Electronically signed by: Omid Tomlin M.D. 07/22/2021 7:40 PM
[2021-07-22 20:03] LABS: Partial Thromboplastin Ratio 0.9; Partial Thromboplastin Time 24.5 Seconds (21.0-31.0); Prothrombin Time 10.5 Seconds (9.0-12.0)
[2021-07-22 20:21] LABS: Albumin Level 3.7 gm/dl (3.4-5.0); BUN Creatinine Ratio 20.4 (10-20); Bilirubin,Total 0.7 mg/dl (0.2-1); Calcium 9.1 mg/dl (8.5-10.1); Creatinine Clr Calc Pharmacy 69.1 ml/min; Est GFR (African American) 89.6 ml/min; Est GFR (Non-African American) 77.3 ml/min; Globulin 3.7 gm/dl (2.5-4.0); Total Protein 7.4 gm/dl (6.4-8.2)
[2021-07-22 20:22] LABS: Troponin I 0.297 ng/ml (0-0.045)
[2021-07-22] MEDS ORDERED: SODIUM CHLORIDE 0.9% 1000ML 1,000 ML IV ONE (20:53)
--- NOTE | 2021-07-22 20:53 | Emergency Department Note ---
Impression & Plan Non-ST elevation SD (NSTEMI), Exertional dyspnea, Abnormal ECG ED Provider Note NAME: WANDA BURNETTE AGE: 65 SEX: F : 1955 ARRIVES VIA: Walk-In INFORMANT: Patient ED PROVIDER(S): Uriel Cerda DO CHIEF COMPLAINT: shortness of breath HPI: Patient is a 65-year-old female who presents the ER with a past medical history of diabetes, hyperlipidemia and gastric bypass. She is complaining of shortness of breath which has been present since Sunday after she received a influenza shot. She denies any chest pain. Shortness of breath is only present with exertion. No belly pain, nausea, vomiting, or diarrhea. No dysuria, urgency, or frequency. She denies any recent trips or travel. No coughing up blood or history of blood clots. No history of clotting disorders. She is not a smoker. ROS: See above HPI for pertinent positives & negatives. A total of 10 systems reviewed and were otherwise negative. PAST MEDICAL HISTORY:See Below PAST SURGICAL HISTORY:See Below FAMILY HISTORY:See Below SOCIAL HISTORY:See Below HOME MEDICATIONS:See Below ALLERGIES:See Below VITALS:See Below PHYSICAL EXAMINATION: GENERAL: Sitting up in bed, alert, well appearing, well nourished, no distress, non-toxic EYE EXAM: normal conjunctiva. OROPHARYNX: no exudate, no erythema, lips, buccal mucosa, and tongue normal and mucous membranes are moist NECK: supple, no nuchal rigidity, no adenopathy, non-tender LUNGS: Clear to auscultation. Normal chest wall mechanics HEART: Tachycardic, S1 normal and S2 normal ABDOMEN: abdomen soft, non-tender, normo-active bowel sounds, no masses, no rebound or guarding. UPPER EXTREMITIES: upper extremities are grossly normal. LOWER EXTREMITIES: Right calf larger than left NEURO EXAM: Normal sensorium, cranial nerves II-XII grossly intact, normal speech, no gross weakness of arms, no gross weakness of legs. MEDICAL DECISION MAKING: Patient is a 65-year-old female who presents the ER for exertional shortness of breath. IV was established blood was obtained. Labs show no significant leukocytosis or anemia. INR was unremarkable. BMP with LFTs shows a slightly elevated AST at 114. Bilirubin was unremarkable. Troponin was +0.297. TSH was unremarkable. Covid was negative. She denies any chest pain. She notes she gets significantly short of breath with any movement which is new. EKG did show a mild tachycardia. Initially favored PE but with a negative CT angio favor this likely an NSTEMI. EKG shows new ST wave changes from 2015. patient was given a heparin drip and bolus. Discussed with hospitalist admitted for further work-up. Patient was ordered a small dose of Lopressor as well due to elevated heart rate in the upper 90s. She denied any hematemesis, hemoptysis, melena, hematochezia, hematuria, recent trauma or surgeries. No previous brain bleeds. Triage Nursing notes reviewed. Limited review of prior medical records performed Vital Signs: reviewed and remarkable for tachy Differential diagnosis: Differential diagnoses includes but is not limited to pneumonia, bronchitis, COPD/Asthma exacerbation, pneumothorax, pulmonary embolism, congestive heart failure, acute coronary syndrome ER treatment provided: See below Diagnostics interpreted by me: ECG: Sinus tachycardia rate of 118 Normal axis No PVCs Septal Q waves QTC 455 Septal Q waves are new and ST depressions in the inferior and lateral leads are new in comparison to old December 2014 Cardiac Monitoring: An order was placed for continuous cardiac monitoring. The monitor shows a rate of 110 with sinus rhythm. Laboratory studies: As stated above and show below. Imaging studies: CT angio of the chest negative Consultation(s): Discussed with Mirza Walter for further evaluation Procedures: none Critical Care: I have personally spent 32 minutes of critical care time in the direct management of this patient. This includes bedside care, interpretation of diagnostic studies, and testing, discussion with consultants, patient, and family members, and other required patient management activities. This 32 min utes is in excess of all separately billable procedures. Past Med/Surg History Medical History (Updated 07/23/21 @ 01:43 by Uriel Cerda DO) Diabetes mellitus Surgical History History of gastric bypass Hx of section Family History (Updated 01/09/20 @ 11:48 by Kain Ruano PA-C) Brother Sleep apnea Social History Smoking Status: Never smoker Hx Alcohol Use: Yes Alcohol type: wine Hx Substance Use: No Preferred Language: Stateless Communication Ability: Effective Transition Nurse Required: Yes Beliefs That Will Affect Care: None marital status: Current Living Situation: Spouse Feels Safe at Home: Yes Assistive Devices: None Allergies Allergies Allergy/AdvReac Type Severity Reaction Status Date / Time No Known Drug Allergies Allergy Unknown Verified 07/22/21 20:51 petrolatum,white AdvReac Severe Swelling Verified 07/22/21 20:51 [From Petroleum Jelly] around eyes Home Meds Home Medications Medication Instructions Recorded Confirmed calcium carbonate 500 mg (1,250 1 tab PO BID 04/18/19 07/22/21 mg)-vitamin D3 400 unit tablet (Calcium 500 + D) cholecalciferol (vitamin D3) 25 1,000 unit PO DAILY 04/18/19 07/22/21 mcg (1,000 unit) capsule (Vitamin D3) multivit-iron 18 mg-folic acid 400 1 tab PO DAILY 04/18/19 07/22/21 mcg-calcium 500 mg-minerals tablet (Women's One Daily) venlafaxine 75 mg capsule,extended 75 mg PO DAILY 04/18/19 07/22/21 release 24 hr cyanocobalamin (vitamin B-12) 1,000 mcg IM .COMPLEX 08/25/19 07/22/21 1,000 mcg/mL injection solution bupropion HCl 300 mg 24 hr tablet, 300 mg PO QAM 01/12/20 07/22/21 extended release apple cider vinegar gummies 2,000 mg PO BID 11/02/20 07/22/21 biotin 10,000 mcg capsule 10,000 mcg PO DAILY cap 11/02/20 07/22/21 diphenhydramine HCl 25 mg capsule 25 mg PO TID PRN 11/02/20 07/22/21 (Benadryl) magnesium oxide 400 mg PO DAILY 11/02/20 07/22/21 [id number] C 250 1 tab PO DAILY PRN 11/02/20 07/22/21 mg-herbal no.124 11.66 mg chewable tablet (Airborne Gummy) Previous Rx's Medication Instructions Recorded acetone (urine) test #25 ea 05/09/19 Novolog U-100 Insulin aspart 100 See Rx Instructions .ROUTE 11/12/20 unit/mL subcutaneous solution .COMPLEX #40 ml NS (insulin aspart U-100) atorvastatin 10 mg tablet 10 mg PO .COMPLEX 90 Days #45 tab 11/16/20 levothyroxine 175 mcg tablet 175 mcg PO DAILY #90 tab 11/26/20 Results & Data (ED) Vital Signs Vital Signs - 24 hr 07/22/21 15:57 07/22/21 20:53 07/22/21 21:00 Temperature 36.4 C L Temperature Source Temporal Artery Scan Pulse Rate 116 H Pulse Rate [Apical] 100 H Respiratory Rate 19 20 Respiratory Effort / Characteristics Non-Labored Respiratory Depth Normal Blood Pressure 138/87 Blood Pressure [Right Arm] 142/92 H Blood Pressure Mean 104 Blood Pressure Mean [Right Arm] 108 Blood Pressure Position [Right Arm] Sitting Pulse Oximetry 98 100 100 Oxygen Delivery Method Room Air Room Air Room Air Sepsis Recent Fever Within 48 Hours No Sepsis New/Unexplained Change in Mental Status N/A Sepsis Action Taken by Nursing No Action Required 07/22/21 22:55 07/22/21 23:00 Temperature Temperature Source Pulse Rate 100 H Pulse Rate [Apical] 74 Respiratory Rate 20 Respiratory Effort / Characteristics Respiratory Depth Blood Pressure 149/92 H Blood Pressure [Right Arm] 133/91 Blood Pressure Mean Blood Pressure Mean [Right Arm] 105 Blood Pressure Position [Right Arm] Pulse Oximetry 98 Oxygen Delivery Method Room Air Sepsis Recent Fever Within 48 Hours Sepsis New/Unexplained Change in Mental Status Sepsis Action Taken by Nursing Laboratory Data Result diagrams: 07/22/21 19:24 07/22/21 20:41 Lab Results 07/22/21 07/22/21 07/22/21 Range/Units 19:24 19:24 19:24 WBC 6.80 (4.8-10.8) K/uL RBC 4.39 (4.2-5.4) M/uL Hgb 12.3 (12.0-16.0) g/dL Hct 38.8 (37-47) % MCV 88.4 (80-100) fL MCH 28.0 (25-34) pg MCHC 31.7 L (32-36) g/dL RDW Std Deviation 47.3 H (36.4-46.3) fL RDW Coeff of Bogdan 14.6 H (11.5-14.5) % Plt Count 209 (130-400) K/uL MPV 10.0 (7.4-10.4) fL Immature Gran % (Auto) 0.1 % Neut % (Auto) 60.5 % Lymph % (Auto) 28.5 % [place] % (Auto) 10.0 % Eos % (Auto) 0.6 % Baso % (Auto) 0.3 % Neut # (Auto) 4.11 (1.4-6.5) K/uL Lymph # (Auto) 1.94 (1.2-3.4) K/uL [place] # (Auto) 0.68 H (0.11-0.59) K/uL Eos # (Auto) 0.04 (0-0.5) K/uL Baso # (Auto) 0.02 (0-0.2) K/uL Immature Gran # (Auto) 0.01 (0.00-0.02) K/uL PT 10.5 (9.0-12.0) Seconds INR 1.0 (0.9-1.1) APTT 24.5 (21.0-31.0) Seconds PTT Ratio 0.9 Sodium 135 L (136-145) mmol/L Potassium (3.5-5.1) mmol/L Chloride 104 (98-107) mmol/L Carbon Dioxide 26 (21-32) mmol/L Anion Gap 5.0 (3-11) BUN 16 (7-18) mg/dl Creatinine 0.81 (0.6-1.2) mg/dl Est Cr Clr Drug Dosing 69.1 ml/min Est GFR ( Amer) 89.6 ml/min Est GFR (Non-Af Amer) 77.3 ml/min BUN/Creatinine Ratio 20.4 H (10-20) Glucose 299 H (70-99) mg/dl Calcium 9.1 (8.5-10.1) mg/dl Magnesium (1.8-2.4) mg/dl Total Bilirubin 0.7 (0.2-1) mg/dl AST (15-37) U/L ALT 52 (12-78) U/L Alkaline Phosphatase 146 H (45-117) U/L Troponin I 0.297 H* (0-0.045) ng/ml Total Protein 7.4 (6.4-8.2) gm/dl Albumin 3.7 (3.4-5.0) gm/dl Globulin 3.7 (2.5-4.0) gm/dl Albumin/Globulin Ratio 1.0 (0.9-2) TSH (0.300-4.500) uIu/ml COVID-19 Eval Order SARS-CoV-2 (PCR) (Negative) 07/22/21 07/22/21 07/22/21 Range/Units 20:41 21:04 21:04 WBC (4.8-10.8) K/uL RBC (4.2-5.4) M/uL Hgb (12.0-16.0) g/dL Hct (37-47) % MCV (80-100) fL MCH (25-34) pg MCHC (32-36) g/dL RDW Std Deviation (36.4-46.3) fL RDW Coeff of Bogdan (11.5-14.5) % Plt Count (130-400) K/uL MPV (7.4-10.4) fL Immature Gran % (Auto) % Neut % (Auto) % Lymph % (Auto) % [place] % (Auto) % Eos % (Auto) % Baso % (Auto) % Neut # (Auto) (1.4-6.5) K/uL Lymph # (Auto) (1.2-3.4) K/uL [place] # (Auto) (0.11-0.59) K/uL Eos # (Auto) (0-0.5) K/uL Baso # (Auto) (0-0.2) K/uL Immature Gran # (Auto) (0.00-0.02) K/uL PT (9.0-12.0) Seconds INR (0.9-1.1) APTT (21.0-31.0) Seconds PTT Ratio Sodium (136-145) mmol/L Potassium 4.8 (3.5-5.1) mmol/L Chloride (98-107) mmol/L Carbon Dioxide (21-32) mmol/L Anion Gap (3-11) BUN (7-18) mg/dl Creatinine (0.6-1.2) mg/dl Est Cr Clr Drug Dosing ml/min Est GFR ( Amer) ml/min Est GFR (Non-Af Amer) ml/min BUN/Creatinine Ratio (10-20) Glucose (70-99) mg/dl Calcium (8.5-10.1) mg/dl Magnesium 1.8 (1.8-2.4) mg/dl Total Bilirubin (0.2-1) mg/dl AST 114 H (15-37) U/L ALT (12-78) U/L Alkaline Phosphatase (45-117) U/L Troponin I (0-0.045) ng/ml Total Protein (6.4-8.2) gm/dl Albumin (3.4-5.0) gm/dl Globulin (2.5-4.0) gm/dl Albumin/Globulin Ratio (0.9-2) TSH 2.660 (0.300-4.500) uIu/ml COVID-19 Eval Order Covid19 at [facility] SARS-CoV-2 (PCR) NEGATIVE (Negative) Administered Medications Heparin Sodium/Dextrose (Heparin Sodium/Dextrose) 25,000 units in 500 mls @ 15 mls/hr IV .Q24H SEMAJ; Protocol Stop: 08/21/21 22:44 Last Admin: 07/22/21 23:01 Dose: 750 units/hr, 15 mls/hr Documented by: [id number] Cosigned by: [id number] Discontinued Medications Aspirin (Aspirin Chew 324 Mg) 324 mg PO NOW STA Stop: 07/22/21 22:22 Last Admin: 07/22/21 22:55 Dose: 324 mg Documented by: [id number] Heparin Sodium (Porcine) (Heparin Sod (Porcine) 1000 Unit/Ml) 1 units IV NOW ONE Stop: 07/22/21 22:35 Last Admin: 07/22/21 23:00 Dose: 4,000 units Documented by: [id number] Cosigned by: [id number] Heparin Sodium/Dextrose (Heparin Iv Adult Wt-Based Low-Dose With Bolus Protocol) 1 ea N/A NOW STA; Protocol Stop: 07/22/21 22:20 Last Admin: 07/22/21 23:07 Dose: 1 ea Documented by: [id number] Sodium Chloride (Nss 1000ml) 1,000 mls @ 999 mls/hr IV .Q1H1M ONE Stop: 07/22/21 21:53 Last Infusion: 07/22/21 22:56 Dose: 0 mls/hr Documented by: [id number] Admin: 07/22/21 21:01 Dose: 999 mls/hr Documented by: [id number] Ioversol (Optiray 320 125ml) 110 ml IV ONCE ONE Stop: 07/22/21 21:38 Last Admin: 07/22/21 21:42 Dose: 110 ml Documented by: [id number] Metoprolol Tartrate (Metoprolol Tartrate 1 Mg/Ml Vial) 2.5 mg IV NOW STA Stop: 07/22/21 22:20 Last Admin: 07/22/21 22:55 Dose: 2.5 mg Documented by: [id number] Imaging Data Radiologist's Impression: Chest X-Ray 07/22/21 16:00 XR chest 1V portable CLINICAL HISTORY: Shortness of breath. COMPARISON STUDY: Chest radiograph June 21, 2015. FINDINGS: Lung volumes are normal. There is no pneumothorax or pleural effusion. Mild right basilar opacity is present. Cardiac size is at the upper limits of normal. IMPRESSION: Mild right basilar opacity. This may reflect a small focus of pneumonia or atelectasis. Radiographic follow-up to ensure resolution is recommended. ACT 112: Negative or not required by law. Electronically signed by: Omid Tomlin M.D. 07/22/2021 7:40 PM Discharge Plan Visit Data Chief Complaint: Shortness of Breath/Dyspnea Stated Complaint: SOB ED Provider: Uriel Cerda Discharge Problem: Non-ST elevation SD (NSTEMI), Exertional dyspnea, Abnormal ECG
[2021-07-22 21:01] LABS: Potassium 4.8 mmol/L (3.5-5.1)
[2021-07-22 21:06] LABS: Magnesium 1.8 mg/dl (1.8-2.4)
[2021-07-22] MEDS ORDERED: OPTIRAY 320 125ml IV ONE (21:37)
[2021-07-22] MEDS ORDERED: Heparin IV Adult Wt-Based Low-Dose WITH Bolus Protocol STA (22:19)
[2021-07-22] MEDS ORDERED: METOPROLOL TARTRATE 1 MG/ML VIAL IV STA (22:19)
[2021-07-22] MEDS ORDERED: ASPIRIN CHEW 324 MG PO STA (22:21)
[2021-07-22] MEDS ORDERED: HEPARIN SOD (PORCINE) 1000 UNIT/ML IV ONE (22:34)
[2021-07-22 22:47] LABS: Thyroid Stimulating Hormone 2.66 uIu/ml (0.300-4.500)
[2021-07-22] MEDS: HEPARIN SODIUM/DEXTROSE 25,000 UNITS/500 ML BAG IV SCH (23:01)
--- NOTE | 2021-07-22 23:41 | History & Physical Report ---
Date of Service July 22, 2021 Assessment & Plan (1) Non-ST elevation SC (NSTEMI): Plan: Elevated troponin/sinus tachycardia/NSTEMI/exertional dyspnea- The patient will be admitted to telemetry for serial cardiac enzymes, serial EKG's, cardiac rhythm monitoring and a 2-D echocardiogram with Dopplers. EKG shows possible anteroseptal SC, with the EKG being slightly different from previous Continue heparin drip begun in the ED Give metoprolol tartrate 25 mg p.o. now, and then 25 mg p.o. twice daily Consult cardiology (2) Sinus tachycardia: Plan: Toprol tartrate as noted above CT angiography chest PE protocol was negative for PE (3) Exertional dyspnea: Plan: See above (4) Controlled type 1 diabetes mellitus, with long-term current use of insulin: Plan: Continue insulin pump and home coverage (5) Anxiety and depression: Plan: Continue bupropion and venlafaxine (6) Hypothyroid: Plan: Continue levothyroxine 135 mcg daily (7) Dyslipidemia: Plan: Continue atorvastatin change from 10 mg every other day to 10 mg daily Check a fasting lipid panel History of Present Illness Chief Complaint: The patient presents to the emergency department with complaint of shortness of breath and uneasy feeling in her chest, including palpitations, since she received an influenza shot 3 days ago Primary Care Provider: Brittney Payton MD The patient is a 65-year-old female with a past medical history including dyslipidemia, diabetes mellitus type 1, anxiety and depression, hypothyroidism, proctocolitis, pancreatic mass, thrombocytopenia, history of C. difficile colitis, history of gastric bypass, and chronic hypercapnic respiratory failure. Patient presents with symptoms as noted above. Abnormal laboratories: Troponin 0.297, AST 114, glucose 299. EKG shows sinus tachycardia 118 bpm, with questionable anteroseptal infarct of unspecified duration Patient was begun on heparin drip by the emergency department, which will be continued She was also given Lopressor 5 mg IV, which brought her heart rate from the high 110s down to the upper 90s. Allergies Allergy/AdvReac Type Severity Reaction Status Date / Time No Known Drug Allergies Allergy Unknown Verified 07/22/21 20:51 petrolatum,white AdvReac Severe Swelling Verified 07/22/21 20:51 [From Petroleum Jelly] around eyes Home Medications Medication Instructions Recorded Confirmed Type calcium carbonate 500 mg (1,250 1 tab PO BID 04/18/19 07/22/21 History mg)-vitamin D3 400 unit tablet (Calcium 500 + D) cholecalciferol (vitamin D3) 25 1,000 unit PO DAILY 04/18/19 07/22/21 History mcg (1,000 unit) capsule (Vitamin D3) multivit-iron 18 mg-folic acid 400 1 tab PO DAILY 04/18/19 07/22/21 History mcg-calcium 500 mg-minerals tablet (Women's One Daily) venlafaxine 75 mg capsule,extended 75 mg PO DAILY 04/18/19 07/22/21 History release 24 hr acetone (urine) test #25 ea 05/09/19 05/23/21 Rx cyanocobalamin (vitamin B-12) 1,000 mcg IM .COMPLEX 08/25/19 07/22/21 History 1,000 mcg/mL injection solution bupropion HCl 300 mg 24 hr tablet, 300 mg PO QAM 01/12/20 07/22/21 History extended release apple cider vinegar gummies 2,000 mg PO BID 11/02/20 07/22/21 History biotin 10,000 mcg capsule 10,000 mcg PO DAILY cap 11/02/20 07/22/21 History diphenhydramine HCl 25 mg capsule 25 mg PO TID PRN 11/02/20 07/22/21 History (Benadryl) magnesium oxide 400 mg PO DAILY 11/02/20 07/22/21 History gcxhxgcv-eqjbxbye-kpy C 250 1 tab PO DAILY PRN 11/02/20 07/22/21 History mg-herbal no.124 11.66 mg chewable tablet (Airborne Gummy) Novolog U-100 Insulin aspart 100 See Rx Instructions .ROUTE 11/12/20 07/22/21 Rx unit/mL subcutaneous solution .COMPLEX #40 ml NS (insulin aspart U-100) atorvastatin 10 mg tablet 10 mg PO .COMPLEX 90 Days #45 tab 11/16/20 07/22/21 Rx levothyroxine 175 mcg tablet 175 mcg PO DAILY #90 tab 11/26/20 07/22/21 Rx Past Med/Surg History Medical History (Updated 07/23/21 @ 03:13 by Mirza Walter MD) Diabetes mellitus Surgical History History of gastric bypass Hx of section Family History (Updated 01/09/20 @ 11:48 by Kain Ruano PA-C) Brother Sleep apnea Social History Smoking Status: Never smoker Hx Alcohol Use: Yes Alcohol type: wine Hx Substance Use: No Preferred Language: Greenlandic Communication Ability: Effective Licensed [employer] Required: Yes Beliefs That Will Affect Care: None marital status: Current Living Situation: Spouse Feels Safe at Home: Yes Assistive Devices: None Review of Systems Review of Systems: The patient denies cough, lower extremity swelling, sore throat, fevers, chills, sweats, nausea, vomiting, diarrhea , constipation, abdominal pain, pelvic pain, blood in urine or stool, dysuria, urinary frequency or urgency, lightheadedness, dizziness, headache, memory loss, loss of consciousness, rash, abnormal bruising or bleeding, imbalance, focal weakness, numbness or tingling in arms or legs, generalized arthralgias or myalgias, back or neck pain, or night sweats. The review of systems is otherwise negative other than for that already noted above, and at least 10 systems have been reviewed. Physical Exam Physical Exam: The patient is awake, alert and oriented 3, well developed and well nourished, normocephalic and atraumatic, lying in bed and in no acute dist ress. HEENT--PERRL, EOMI, mucous membranes and oropharynx normal Neck--supple. No JVD. No bruits. Thyroid normal, trachea midline, no adenopathy. Heart--normal S1 and S2. No murmurs, rubs or gallops. Lungs--clear bilaterally, no respiratory distress, no accessory muscle use. Abdomen--normal bowel sounds and soft. Nontender. Nondistended, no hernias or masses, no organomegaly. Extremities--no cyanosis or clubbing. No edema. Dermatologic--normal skin turgor, normal color, no abnormal lymph nodes, no rash. Neurologic--cranial nerves II through XII grossly intact. Rheumatologic--normal range of motion. Psychiatric--normal affect. Results & Data Results & Data ([facility]) Vital Signs (Past 12 Hours) Vital Signs Temp Pulse Pulse Resp BP BP Pulse Ox 07/22/21 23:00 74 20 133/91 98 07/22/21 22:55 100 H 149/92 H 07/22/21 21:00 100 H 20 142/92 H 100 07/22/21 20:53 100 07/22/21 15:57 97.5 F L 116 H 19 138/87 98 Laboratory Results Laboratory Results WBC 6.80 K/uL (4.8-10.8) 07/22/21 19:24 RBC 4.39 M/uL (4.2-5.4) 07/22/21 19:24 Hgb 12.3 g/dL (12.0-16.0) 07/22/21 19:24 Hct 38.8 % (37-47) 07/22/21 19:24 MCV 88.4 fL (80-100) 07/22/21 19:24 MCH 28.0 pg (25-34) 07/22/21 19:24 MCHC 31.7 g/dL (32-36) L 07/22/21 19:24 RDW Std Deviation 47.3 fL (36.4-46.3) H 07/22/21 19:24 RDW Coeff of Bogdan 14.6 % (11.5-14.5) H 07/22/21 19:24 Plt Count 209 K/uL (130-400) 07/22/21 19:24 MPV 10.0 fL (7.4-10.4) 07/22/21 19:24 Immature Gran % (Auto) 0.1 % 07/22/21 19:24 Neut % (Auto) 60.5 % 07/22/21 19:24 Lymph % (Auto) 28.5 % 07/22/21 19:24 [place] % (Auto) 10.0 % 07/22/21 19:24 Eos % (Auto) 0.6 % 07/22/21 19:24 Baso % (Auto) 0.3 % 07/22/21 19:24 Neut # (Auto) 4.11 K/uL (1.4-6.5) 07/22/21 19:24 Lymph # (Auto) 1.94 K/uL (1.2-3.4) 07/22/21 19:24 [place] # (Auto) 0.68 K/uL (0.11-0.59) H 07/22/21 19:24 Eos # (Auto) 0.04 K/uL (0-0.5) 07/22/21 19:24 Baso # (Auto) 0.02 K/uL (0-0.2) 07/22/21 19:24 Immature Gran # (Auto) 0.01 K/uL (0.00-0.02) 07/22/21 19:24 PT 10.5 Seconds (9.0-12.0) 07/22/21 19:24 INR 1.0 (0.9-1.1) 07/22/21 19:24 APTT 24.5 Seconds (21.0-31.0) 07/22/21 19:24 PTT Ratio 0.9 07/22/21 19:24 Sodium 135 mmol/L (136-145) L 07/22/21 19:24 Potassium 4.8 mmol/L (3.5-5.1) 07/22/21 20:41 Chloride 104 mmol/L (98-107) 07/22/21 19:24 Carbon Dioxide 26 mmol/L (21-32) 07/22/21 19:24 Anion Gap 5.0 (3-11) 07/22/21 19:24 BUN 16 mg/dl (7-18) 07/22/21 19:24 Creatinine 0.81 mg/dl (0.6-1.2) 07/22/21 19:24 Est Cr Clr Drug Dosing 69.1 ml/min 07/22/21 19:24 Est GFR ( Amer) 89.6 ml/min 07/22/21 19:24 Est GFR (Non-Af Amer) 77.3 ml/min 07/22/21 19:24 BUN/Creatinine Ratio 20.4 (10-20) H 07/22/21 19:24 Glucose 299 mg/dl (70-99) H 07/22/21 19:24 Calcium 9.1 mg/dl (8.5-10.1) 07/22/21 19:24 Magnesium 1.8 mg/dl (1.8-2.4) 07/22/21 20:41 Total Bilirubin 0.7 mg/dl (0.2-1) 07/22/21 19:24 AST 114 U/L (15-37) H 07/22/21 20:41 ALT 52 U/L (12-78) 07/22/21 19:24 Alkaline Phosphatase 146 U/L (45-117) H 07/22/21 19:24 Troponin I 0.297 ng/ml (0-0.045) H* 07/22/21 19:24 Total Protein 7.4 gm/dl (6.4-8.2) 07/22/21 19:24 Albumin 3.7 gm/dl (3.4-5.0) 07/22/21 19:24 Globulin 3.7 gm/dl (2.5-4.0) 07/22/21 19:24 Albumin/Globulin Ratio 1.0 (0.9-2) 07/22/21 19:24 TSH 2.660 uIu/ml (0.300-4.500) 07/22/21 20:41 COVID-19 Eval Order Covid19 at [facility] 07/22/21 21:04 SARS-CoV-2 (PCR) NEGATIVE (Negative) 07/22/21 21:04 Impressions Chest X-Ray 07/22/21 16:00 XR chest 1V portable CLINICAL HISTORY: Shortness of breath. COMPARISON STUDY: Chest radiograph June 21, 2015. FINDINGS: Lung volumes are normal. There is no pneumothorax or pleural effusion. Mild right basilar opacity is present. Cardiac size is at the upper limits of normal. IMPRESSION: Mild right basilar opacity. This may reflect a small focus of pneumonia or atelectasis. Radiographic follow-up to ensure resolution is recommended. ACT 112: Negative or not required by law. Electronically signed by: Omid Tomlin M.D. 07/22/2021 7:40 PM Diagnostic Findings [facility] Patient: WANDA BURNETTE (Female) : 59 Status: ER Date: 07/22/21 21:46 Room #: History: chest pain Slices: [phone] Priors: Tech: Stanford Dinero @ [phone] Exams: CTA CHEST Contrast: IV Amt: 110cc optiray 320 Accession Numbers: [id number] Referring Physician: BRITTNEY PAYTON Preliminary Findings Only See Final Report For Complete Findings CTA CHEST: No pulmonary artery filling defects to suggest pulmonary artery thrombosis. No thoracic aortic aneurysm or dissection is present. Atherosclerotic vascular calcifications. Heart is mildly enlarged. No evidence for right heart strain. No pericardial fluid or thickening. Small subcentimeter mediastinal lymph nodes. Mild bilateral dependent atelectasis. Mild medial segment right middle lobe probable scarring or atelectasis. No definite lobar pneumonia. No pleural effusion or pneumothorax. No acute fracture is identified. Degenerative changes of the thoracic spine. Limited images of the upper abdomen demonstrates gastric sutures.. Radiologist: Kain Paulino M.D. Study ready at 21:51 and initial results transmitted at 22:03 *This report constitutes a preliminary interpretation only. Non-acute findings felt to be unrelated to the clinical presentation may not be discussed in this report. The study will be interpreted and a final report will be generated by the local Radiologist the following shift. To reach the hospital radiology department call [phone]. If a discrepancy is found between the preliminary and final interpretations of this study, please notify us via our Client Portal at [email or web address] under QA Exams.You can also fax this report with a description of the discrepancy, or include the final report, to our daytime fax number [phone].If faxing, please indicate the severity of discrepancy using one of the following categories: [ ] 1 - Agree/Informational [ ] 2 - Unlikely to Affect Management [ ] 3 - Possible Eventual Change of Management [ ] 4 - Probable Immediate Change of Management For all other patient related information, please fax us at [phone]. [id number] Code Status & VTE Plan Code Status Full code VTE Prophylaxis Plan VTE Prophylaxis will be ordered: Yes PG Care Time/CCT Total # of Minutes Spent Total Time Spent with Patient: Total time spent is greater than 50% in coordination of care (as documented) at patient's floor/unit and/or counseling patient: Coding Level of Care Code 46585 Initial Inpt Care Lvl 3 Diagnoses Non-ST elevation SC (NSTEMI) I21.4 Sinus tachycardia R00.0 Exertional dyspnea R06.00 Controlled type 1 diabetes mellitus, with long-term current use of insulin E10.9 Anxiety and depression F41.9; F32.9 Hypothyroid E03.9 Dyslipidemia E78.5
[2021-07-23] MEDS ORDERED: METOPROLOL TARTRATE 25 MG TAB PO STA (03:14)
[2021-07-23] MEDS ORDERED: diphenhydrAMINE Capsule 25 MG CAP PO PRN (03:44)
[2021-07-23] MEDS ORDERED: ACETAMINOPHEN 325 MG TAB PO PRN (03:44)
[2021-07-23] MEDS ORDERED: GLUCOSE 10 TABS/TUBE PO PRN ×2 (03:44→15:59)
[2021-07-23] MEDS ORDERED: ONDANSETRON INJ 2 MG/ML 2 ML VIAL IV PRN (03:44)
[2021-07-23] MEDS ORDERED: GLUCAGON FOR INJ 1 MG VIAL SQ PRN ×2 (03:44→15:59)
[2021-07-23] MEDS ORDERED: [UNRECOGNIZED DRUG - REMARK] PO PRN (03:44)
[2021-07-23] MEDS ORDERED: CARBOHYDRATES FOR HYPOGLYCEMIA PO PRN ×2 (03:44→15:59)
[2021-07-23] MEDS ORDERED: GLUCOSE 40% GEL 15 GM TUBE PO PRN ×2 (03:44→15:59)
[2021-07-23] MEDS ORDERED: DEXTROSE 50% 50 ML SYRINGE IV PRN ×2 (03:44→15:59)
[2021-07-23] MEDS: LEVOTHYROXINE SODIUM 175 MCG TABLET PO SCH (06:11)
[2021-07-23 07:12] LABS: Partial Thromboplastin Ratio 1.8
[2021-07-23 07:54] LABS: Partial Thromboplastin Time 48.1 Seconds (21.0-31.0)
--- NOTE | 2021-07-23 08:48 | CT Scan Report ---
CHEST CTA for PULMONARY ARTERIES CT DOSE: 350.21 mGy.cm HISTORY: Shortness of breath. TECHNIQUE: Multiaxial CT images of the chest were performed following the intravenous administration of contrast to evaluate the pulmonary arteries. Maximal intensity projection images were also obtaine d. A dose lowering technique was utilized adhering to the principles of ALARA. COMPARISON STUDY: Chest 07/22/2021. FINDINGS: Postoperative changes suggesting prior gastric bypass which is partially visualized on this study. Mild hepatic steatosis. The spleen is unremarkable. Trace right pleural effusion. No pericard ial effusions. The heart is borderline enlarged. No mediastinal or hilar lymphadenopathy. Normal jose luis kleber esophagus. The thoracic aorta is also normal in caliber with no evidence for dissection. No fract ures within the visualized osseous structures. The central airways are patent. No pneumothorax. Bibas ilar linear densities consistent with subsegmental atelectasis. Small focal patchy density within the right lower lobe medially favors atelectasis from the adjacent thoracic spine osteophyte. Otherwise, no focal lung consolidations to suggest pneumonia. No filling defects within the pulmonary arteries to suggest a pulmonary embolus. IMPRESSION: 1. No evidence for pulmonary embolus. 2. Trace right pleural effusion. 3. The heart is borderline enlarged. 4. Additional findings as described above. ACT 112: Negative or not required by law. Electronically signed by: Mark Raza M.D. 07/23/2021 8:47 AM
[2021-07-23] MEDS ORDERED: ATORVASTATIN 10 MG TAB PO SCH (09:00)
[2021-07-23] MEDS: CHOLECALCIFEROL 1,000 UNITS 25 MCG TAB PO SCH (09:07)
[2021-07-23] MEDS: VENLAFAXINE HCL XR 75 MG CAPXR PO SCH (09:07)
[2021-07-23] MEDS: MULTIVITAMIN TAB PO SCH (09:07)
[2021-07-23] MEDS: buPROPion XL 300 MG TABCR PO SCH (09:07)
[2021-07-23] MEDS: MAGNESIUM OXIDE 400 MG TAB PO SCH (09:07)
[2021-07-23] MEDS: CALCIUM 600MG + VIT D 400 IU TAB PO SCH ×2 (09:07→21:19)
[2021-07-23] MEDS: METOPROLOL TARTRATE 25 MG TAB PO SCH ×2 (09:07→20:42)
[2021-07-23 10:14] LABS: BUN Creatinine Ratio 22.8 (10-20); Calcium 8.9 mg/dl (8.5-10.1); Creatinine Clr Calc Pharmacy 98.2 ml/min; Est GFR (African American) 114.3 ml/min; Est GFR (Non-African American) 98.7 ml/min; Magnesium 1.8 mg/dl (1.8-2.4); Potassium 3.9 mmol/L (3.5-5.1)
--- NOTE | 2021-07-23 10:45 | Hospitalist Progress Note ---
Date of Service July 23, 2021 Assessment & Plan (1) Non-ST elevation CT (NSTEMI): Plan: Elevated troponin/sinus tachycardia/NSTEMI/exertional dyspnea- The patient was admitted to telemetry for serial cardiac enzymes, serial EKG's, cardiac rhythm monitoring. EKG shows possible anteroseptal CT, with the EKG being slightly different from previous Echocardiogram showed apex with wall motion abnormalities. Suspected to be occlusion of the LAD Continue heparin drip Will need aspirin 81 mg daily Will need beta-musa and JONNIE inhibitor as tolerated Patient on atorvastatin 10 mg daily. Should increase if tolerated Continue beta-musa with metoprolol tartrate 25 mg p.o. twice daily Consult cardiology -appreciate Dr. Martin's input Due to findings on echocardiogram, will transfer patient to intensive care unit. (2) Sinus tachycardia: Plan: Metoprolol tartrate CT angiography chest PE protocol was negative for PE Continue to monitor on telemetry Most likely due to acute findings of CT (3) Exertional dyspnea: Plan: Appears to be cardiac related We will treat underlying CT PT eval prior to discharge (4) Controlled type 1 diabetes mellitus, with long-term current use of insulin: Plan: Continue insulin pump and home coverage for now We will consult pharmacy for glycemic management as patient will require n.p.o. status for probable cardiac catheterization on Sunday (5) Anxiety and depression: Plan: Continue bupropion and venlafaxine Emotional support and education regarding disease as possible (6) Hypothyroid: Plan: Continue levothyroxine 135 mcg daily (7) Dyslipidemia: Plan: Continue atorvastatin per cardiology guidelines Check a fasting lipid panel (8) DVT prophylaxis: Plan: Heparin drip for cardiac related issues Bedrest for now but increase ambulation when medically safe Admission and Anticipated Discharge Date Admission Date: July 22, 2021 Subjective Attending: Dr. Joseph Patient seen and examined in the emergency department in room D$b. No further chest pain. Patient is cold and clammy with diaphoresis. No pain in the shoulders jaw or neck. No awareness of palpitations. Blood pressure is elevated in the 170s systolically. She has no nausea or vomiting. No back pain. No other acute complaints other than anxiety while waiting for information. Review of Systems Review of Systems: All systems reviewed & are unremarkable except as noted in Subjective Physical Exam Physical Exam: GENERAL : No acute distress EYES: No icterus, gaze conjugate NOSE: No evidence of epistaxis MOUTH: No lesions or candidiasis NECK: Supple LUNGS: CTA B/L, no wheezes, rales or rhonchi HEART: Regular, rate in low 100s ABDOMEN: Soft, NT, ND, BS Present EXTREMITIES: No LE edema, pedal pulses intact SKIN: Cold and clammy with diaphoresis. NEURO: A&OX3. No pronator drift. Cerebellar function intact with [id number] and rapid alternating movements. Strength equal and appropriate upper and lower extremities. No pronator drift. Pupils equal round and react flavio to light. No deviation of tongue. No facial droop. Results & Data Results & Data ([facility]) Vital Signs (Past 12 Hours) Vital Signs Temp Pulse Pulse Resp BP BP Pulse Ox 07/23/21 08:00 36.8 C 108 H 18 180/105 H 97 07/23/21 03:18 87 20 114/82 92 07/23/21 02:33 36.9 C 101 H 19 131/92 97 07/23/21 02:05 77 20 127/76 96 07/22/21 23:00 74 20 133/91 98 07/22/21 22:55 100 H 149/92 H Laboratory Results 07/22/21 19:24 07/23/21 09:30 07/22/21 07/23/21 19:24 09:30 Troponin I 0.297 H* 0.163 H* Diagnostic Findings No further diagnostics since admission PG Care Time/CCT Total # of Minutes Spent Total Time Spent with Patient: Total time spent is greater than 50% in coordination of care (as documented) at patient's floor/unit and/or counseling patient: 30 minutes Coding Level of Care Code 38590 Subseq Hosp Care Lvl 3 Diagnoses Non-ST elevation CT (NSTEMI) I21.4 Sinus tachycardia R00.0 Exertional dyspnea R06.00 Controlled type 1 diabetes mellitus, with long-term current use of insulin E10.9 Anxiety and depression F41.9; F32.9 Hypothyroid E03.9 Dyslipidemia E78.5 DVT prophylaxis Z29.9 Time Spent (min) 30
[2021-07-23 11:32] LABS: Troponin I 0.163 ng/ml (0-0.045)
--- NOTE | 2021-07-23 11:49 | Cardiology Consultation ---
Date of Consultation July 23, 2021 History of Present Illness Reason for Consultation: Non-ST elevation myocardial infarction Attending Physician: Pedro Joseph MD History of Present Illness Is a very pleasant 65-year-old female has been a longstanding diabetic for 55+ years. She had her flu shot on Sunday. She notes shortly thereafter she had shortness of breath with activity. It has become more progressive over the week to the point that she came to the emergency room yesterday afternoon. Last evening just walking to the bathroom which is less than 10 feet from her bed she had pretty significant shortness of breath lightheadedness and dizziness. She denies any chest pain chest pressure chest heaviness she denies any discomfort between her shoulder blades or down her arm. She denies any resting shortness of breath or chest heaviness. She has a lower extreme edema symptoms or claudication normally she is very active gardening and can climb a flight of stairs without any issues since Sunday she notes if she climbs her steps at home she actually has to stop because she feels short of breath. She denies any orthopnea she has no lower extremity edema. She has a cough fevers chills sweats. She has any bleeding bruising dark stools or black stools. She is somewhat tearful and she notes that she is normally emotional. The rest of complete her systems otherwise negative Allergies Allergy/AdvReac Type Severity Reaction Status Date / Time No Known Drug Allergies Allergy Unknown Verified 07/22/21 20:51 petrolatum,white AdvReac Severe Swelling Verified 07/22/21 20:51 [From Petroleum Jelly] around eyes Home Medications Medication Instructions Recorded Confirmed Type calcium carbonate 500 mg (1,250 1 tab PO BID 04/18/19 07/22/21 History mg)-vitamin D3 400 unit tablet (Calcium 500 + D) cholecalciferol (vitamin D3) 25 1,000 unit PO DAILY 04/18/19 07/22/21 History mcg (1,000 unit) capsule (Vitamin D3) multivit-iron 18 mg-folic acid 400 1 tab PO DAILY 04/18/19 07/22/21 History mcg-calcium 500 mg-minerals tablet (Women's One Daily) venlafaxine 75 mg capsule,extended 75 mg PO DAILY 04/18/19 07/22/21 History release 24 hr acetone (urine) test #25 ea 05/09/19 05/23/21 Rx cyanocobalamin (vitamin B-12) 1,000 mcg IM .COMPLEX 08/25/19 07/22/21 History 1,000 mcg/mL injection solution bupropion HCl 300 mg 24 hr tablet, 300 mg PO QAM 01/12/20 07/22/21 History extended release apple cider vinegar gummies 2,000 mg PO BID 11/02/20 07/22/21 History biotin 10,000 mcg capsule 10,000 mcg PO DAILY cap 11/02/20 07/22/21 History diphenhydramine HCl 25 mg capsule 25 mg PO TID PRN 11/02/20 07/22/21 History (Benadryl) magnesium oxide 400 mg PO DAILY 11/02/20 07/22/21 History azyqkmjg-njchnflt-bwx C 250 1 tab PO DAILY PRN 11/02/20 07/22/21 History mg-herbal no.124 11.66 mg chewable tablet (Airborne Gummy) Novolog U-100 Insulin aspart 100 See Rx Instructions .ROUTE 11/12/20 07/22/21 Rx unit/mL subcutaneous solution .COMPLEX #40 ml NS (insulin aspart U-100) atorvastatin 10 mg tablet 10 mg PO .COMPLEX 90 Days #45 tab 11/16/20 07/22/21 Rx levothyroxine 175 mcg tablet 175 mcg PO DAILY #90 tab 11/26/20 07/22/21 Rx Patient History Medical History Diabetes mellitus Surgical History History of gastric bypass Hx of section Family History Brother Sleep apnea Social History Smoking Status: Never smoker Hx Alcohol Use: Yes Alcohol type: wine Hx Substance Use: No Preferred Language: Somali Communication Ability: Effective 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 Beliefs That Will Affect Care: None marital status: Current Living Situation: Spouse Feels Safe at Home: Yes Assistive Devices: None Results & Data ([facility]) Vital Signs (Past 12 Hours) Vital Signs Temp Pulse Pulse Resp BP BP Pulse Ox 07/23/21 08:00 36.8 C 108 H 18 180/105 H 97 07/23/21 03:18 87 20 114/82 92 07/23/21 02:33 36.9 C 101 H 19 131/92 97 07/23/21 02:05 77 20 127/76 96 she is awake alert oriented x3 she is in no acute distress she is tearful HEENT 1+ carotid upstrokes no evidence of carotid bruits Lungs: Clear to auscultation bilaterally no rales rhonchi or wheezing Heart: Regular rate and rhythm she has a positive S3 there were no appreciable murmurs Abdomen: Soft and tenderness and a positive bowel sounds Extremities: No clubbing cyanosis or edema Psychiatric: Her affect appeared appropriate EKG sinus rhythm Q waves V1 to V3 but normal R waves in leads V 4 through V6 Echocardiogram personally reviewed suggest the anterior septum and septum are thinned and akinetic the rest of the LAD territory is severely hypokinetic but is not thinned. There is no evidence of LV thrombus or ejection fraction in the range of 25%. Her labs were reviewed including her troponin which is trending down IMPRESSIONS: 1. Non-ST elevation [place] 2. What appears to be a prior septal and anterior septal infarct based on EKG and echo criteria 3. Extensive LAD wall motion abnormality with normal wall thickness suggesting the possibility of hibernating myocardium 4. Severe left ventricular dysfunction 5. Longstanding diabetes mellitus type 1 As I discussed with Shelli and her significant other it looks like she has significant LAD disease and given her longstanding diabetes it is possible she has triple-vessel disease. She is currently pain-free as well there is nothing to suggest heart failure based on her exam and CAT scan of her chest. In discussion with interventional cardiology one would anticipate if she had a large LAD infarct on Sunday her troponin should be markedly elevated at this point. currently it is only minimally elevated which is reassuring that the LAD territory may be viable a finding confirmed by her echocardiogram and EKG.. I would continue to trend her troponin as long as the delta continues to decline like it has then we can wait on cardiac catheterization until Sunday. If she were to become unstable or have heart failure symptoms or have resting anginal symptoms then we would need to proceed to the catheterization laboratory over the weekend. She should be admitted to the ICU for close observation. She is already been placed on heparin. I added 81 mg of aspirin to her medical regimen. I did increase her Lipitor from 10 mg to 40 mg as her last LDL in the system was 69 and will need to be more aggressive. Her beta-blockers can be uptitrated as her blood pressure and heart rate allow. At this point there is no room for JONNIE inhibitors. Additionally given the fact she received IV contrast last night and has no known diet longstanding diabetes even with a normal creatinine I be reluctant to start an JONNIE immediately. For now I would keep her n.p.o. just in case she has to go to the Cardiac Nurse Practitioner urgently. We will continue to follow her with you thank you let us dissipate in her care
[2021-07-23] MEDS: ASPIRIN 81 MG ECTAB PO SCH (12:00)
[2021-07-23] MEDS: ATORVASTATIN 40 MG TAB PO SCH (12:00)
--- NOTE | 2021-07-23 13:46 | Electrocardiogram Report ---
Test Reason : Blood Pressure : / mmHG Vent. Rate : 118 BPM Atrial Rate : 118 BPM P-R Int : 126 ms QRS Dur : 080 ms QT Int : 318 ms P-R-T Axes : 079 052 085 degrees QTc Int : 445 ms Poor data quality, interpretation may be adversely affected Sinus tachycardia Possible Left atrial enlargement Cannot rule out septal infarct age indeterminate Nonspecific T wave abnormality Abnormal ECG When compared with ECG of 16-DEC-2014 23:55, Significant changes have occurred Confirmed by Thomas Martin ([id number]) on 07/23/2021 1:45:34 PM Referred By: Brittney Payton Confirmed By:Thomas Martin
--- NOTE | 2021-07-23 14:30 | Critical Care Consultation ---
Date of Consultation July 23, 2021 Assessment & Plan (1) Non-ST elevation [place] (NSTEMI): (2) Exertional dyspnea: (3) Pulmonary hypertension: (4) Systolic heart failure: Impression: 65-year-old diabetic admitted with exertional shortness of breath found to have an EF of 20 and wall motion abnormalities concerning for LAD infarct. Her troponin is downtrending and the patient is not having any chest pain so it is unclear when she had her event. Plan is to continue anticoagulation with plans for cardiac catheterization likely on Sunday. Recommendations: 1. Non-ST elevation [place]: Continue heparin. The patient was advised to contact us if she experiences increasing shortness of breath chest pain or palpitations. We will continue to trend troponins. If they increase or the patient has symptoms, she may need more urgent cardiac catheterization. 2. Heart failure: Continue management per cardiology. 3. Pulmonary hypertension: Suspect secondary to reduced EF. Hold on diuretics for now. 4. Diabetes: Continue glycemic control. 5. History of Present Illness Attending Physician: Pedro Joseph MD History of Present Illness Asked by hospitalist service to assist in evaluation management this patient being admitted to the ICU with unstable angina. History is obtained from discussion with the hospitalist, review the electronic medical record, and interview the patient. Patient is a 65-year-old female with a longstanding history of diabetes. She has had shortness of breath since Sunday which has become more progressive. Patient presented to the emergency room yesterday evening. She had an echocardiogram. She does not report significant cough, fevers, chills, or night sweats. She is not had any presyncope or presyncope. No significant palpitations. She had Q waves V1 to V3 on EKG and echocardiogram showed akinesis of the anterior septum with hypokinesis of the remaining LAD territory. EF was about 25%. No evidence of LV thrombus. Troponin was elevated. She has been initiated on heparin. She states that as long as she sits still in bed she does not experience any significant shortness of breath Allergies Allergy/AdvReac Type Severity Reaction Status Date / Time No Known Drug Allergies Allergy Unknown Verified 07/22/21 20:51 petrolatum,white AdvReac Severe Swelling Verified 07/22/21 20:51 [From Petroleum Jelly] around eyes Home Medications Medication Instructions Recorded Confirmed Type calcium carbonate 500 mg (1,250 1 tab PO BID 04/18/19 07/22/21 History mg)-vitamin D3 400 unit tablet (Calcium 500 + D) cholecalciferol (vitamin D3) 25 1,000 unit PO DAILY 04/18/19 07/22/21 History mcg (1,000 unit) capsule (Vitamin D3) multivit-iron 18 mg-folic acid 400 1 tab PO DAILY 04/18/19 07/22/21 History mcg-calcium 500 mg-minerals tablet (Women's One Daily) venlafaxine 75 mg capsule,extended 75 mg PO DAILY 04/18/19 07/22/21 History release 24 hr acetone (urine) test #25 ea 05/09/19 05/23/21 Rx cyanocobalamin (vitamin B-12) 1,000 mcg IM .COMPLEX 08/25/19 07/22/21 History 1,000 mcg/mL injection solution bupropion HCl 300 mg 24 hr tablet, 300 mg PO QAM 01/12/20 07/22/21 History extended release apple cider vinegar gummies 2,000 mg PO BID 11/02/20 07/22/21 History biotin 10,000 mcg capsule 10,000 mcg PO DAILY cap 11/02/20 07/22/21 History diphenhydramine HCl 25 mg capsule 25 mg PO TID PRN 11/02/20 07/22/21 History (Benadryl) magnesium oxide 400 mg PO DAILY 11/02/20 07/22/21 History qxuvguug-jcqvauwl-zut C 250 1 tab PO DAILY PRN 11/02/20 07/22/21 History mg-herbal no.124 11.66 mg chewable tablet (Airborne Gummy) Novolog U-100 Insulin aspart 100 See Rx Instructions .ROUTE 11/12/20 07/22/21 Rx unit/mL subcutaneous solution .COMPLEX #40 ml NS (insulin aspart U-100) atorvastatin 10 mg tablet 10 mg PO .COMPLEX 90 Days #45 tab 11/16/20 07/22/21 Rx levothyroxine 175 mcg tablet 175 mcg PO DAILY #90 tab 11/26/20 07/22/21 Rx Patient History Medical History Diabetes mellitus Surgical History History of gastric bypass Hx of section Family History Brother Sleep apnea Social History Smoking Status: Never smoker Hx Alcohol Use: Yes Alcohol type: wine Hx Substance Use: No Preferred Language: Gabonese Communication Ability: Effective Php Engineer Required: 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 Beliefs That Will Affect Care: None marital status: Current Living Situation: Spouse Feels Safe at Home: Yes Assistive Devices: None Review of Systems Review of Systems: P Physical Exam Constitutional: WD/WN, vitals as above Neck: trachea midline, no thyromegaly Respiratory: normal respiratory effort, lungs clear to auscultation Cardiovascular: RRR, no murmur, no edema Gastrointestinal (Abdomen): normal bowel sounds, soft, nontender, no hepatosplenomegaly Musculoskeletal: Extremities: extremities normal to inspection Skin: no rashes, warm and dry Neurologic: Nonfocal exam Lymphatic: no cervical lymphadenopathy Results & Data Results & Data ([facility]) Vital Signs (Past 12 Hours) Vital Signs Temp Pulse Resp BP Pulse Ox 07/23/21 12:00 68 18 125/75 98 07/23/21 08:00 36.8 C 108 H 18 180/105 H 97 07/23/21 03:18 87 20 114/82 92 07/23/21 02:33 36.9 C 101 H 19 131/92 97 Diagnostic Findings Echocardiogram performed today showed an EF of 25%. Mid to distal anterior septum were akinetic with hypokinesis of the inferior wall. Concentric LVH is noted with type I diastolic dysfunction. Moderate pulmonary hypertension with dilatation of the left atrium. Mild aortic insufficiency with mild mitral regurgitation Critical Care Results & Data Vital Signs (Past 12 Hours) Vital Signs Temp Pulse Resp BP Pulse Ox 07/23/21 12:00 68 18 125/75 98 07/23/21 08:00 36.8 C 108 H 18 180/105 H 97 07/23/21 03:18 87 20 114/82 92 07/23/21 02:33 36.9 C 101 H 19 131/92 97 Lab & Micro Results (Past 24 Hours) RBC 4.39 M/uL (4.2-5.4) 07/22/21 WBC 6.80 K/uL (4.8-10.8) 07/22/21 Hgb 12.3 g/dL (12.0-16.0) 07/22/21 Hct 38.8 % (37-47) 07/22/21 MCV 88.4 fL (80-100) 07/22/21 MCH 28.0 pg (25-34) 07/22/21 MCHC 31.7 g/dL (32-36) L 07/22/21 RDW Standard Deviation 47.3 fL (36.4-46.3) H 07/22/21 RDW Coefficient of Variation 14.6 % (11.5-14.5) H 07/22/21 Plt Count 209 K/uL (130-400) 07/22/21 MPV 10.0 fL (7.4-10.4) 07/22/21 Neutrophils (%) (Auto) 60.5 % 07/22/21 Lymphocytes (%) (Auto) 28.5 % 07/22/21 Monocytes # (Auto) 0.68 K/uL (0.11-0.59) H 07/22/21 Eosinophils # (Auto) 0.04 K/uL (0-0.5) 07/22/21 Immature Granulocyte % (Auto) 0.1 % 07/22/21 Neutrophils # (Auto) 4.11 K/uL (1.4-6.5) 07/22/21 Lymphocytes # (Auto) 1.94 K/uL (1.2-3.4) 07/22/21 Monocytes # (Auto) 0.68 K/uL (0.11-0.59) H 07/22/21 Eosinophils # (Auto) 0.04 K/uL (0-0.5) 07/22/21 Basophils # (Auto) 0.02 K/uL (0-0.2) 07/22/21 Immature Granulocyte # (Auto) 0.01 K/uL (0.00-0.02) 07/22/21 Na 138 mmol/L (136-145) 07/23/21 K 3.9 mmol/L (3.5-5.1) 07/23/21 Cl 107 mmol/L (98-107) 07/23/21 CO2 28 mmol/L (21-32) 07/23/21 Anion Gap 3.0 (3-11) 07/23/21 BUN 13 mg/dl (7-18) 07/23/21 Creatinine 0.57 mg/dl (0.6-1.2) L 07/23/21 Estimated GFR ( Amer) 114.3 ml/min 07/23/21 Estimated GFR (Non-Af Amer) 98.7 ml/min 07/23/21 BUN/Creatinine Ratio 22.8 (10-20) H 07/23/21 Glu 152 mg/dl (70-99) H 07/23/21 Ca 8.9 mg/dl (8.5-10.1) 07/23/21 Total Bilirubin 0.7 mg/dl (0.2-1) 07/22/21 AST 114 U/L (15-37) H 07/22/21 ALT 52 U/L (12-78) 07/22/21 Alkaline Phosphatase 146 U/L (45-117) H 07/22/21 TP 7.4 gm/dl (6.4-8.2) 07/22/21 Albumin 3.7 gm/dl (3.4-5.0) 07/22/21 Globulin 3.7 gm/dl (2.5-4.0) 07/22/21 Albumin/Globulin Ratio 1.0 (0.9-2) 07/22/21 Mg 1.8 mg/dl (1.8-2.4) 07/23/21 09:30 07/23/21 Calcium Level 8.9 mg/dl (8.5-10.1) 07/23/21 09:30 07/23/21 Prothromb Time International Ratio 1.0 (0.9-1.1) 07/22/21 19:24 07/22/21 Diagnostic Findings (Past 24 Hours) Chest X-Ray 07/22/21 16:00 XR chest 1V portable CLINICAL HISTORY: Shortness of breath. COMPARISON STUDY: Chest radiograph June 21, 2015. FINDINGS: Lung volumes are normal. There is no pneumothorax or pleural effusion. Mild right basilar opacity is present. Cardiac size is at the upper limits of normal. IMPRESSION: Mild right basilar opacity. This may reflect a small focus of pneumonia or atelectasis. Radiographic follow-up to ensure resolution is recommended. ACT 112: Negative or not required by law. Electronically signed by: Omid Tomlin M.D. 07/22/2021 7:40 PM Chest CTA 07/22/21 20:49 CHEST CTA for PULMONARY ARTERIES CT DOSE: 350.21 mGy.cm HISTORY: Shortness of breath. TECHNIQUE: Multiaxial CT images of the chest were performed following the intravenous administration of contrast to evaluate the pulmonary arteries. Ma ximal intensity projection images were also obtained. A dose lowering technique was utilized adhering to the principles of ALARA. COMPARISON STUDY: Chest 07/22/2021. FINDINGS: Postoperative changes suggesting prior gastric bypass which is partially visualized on this study. Mild hepatic steatosis. The spleen is unremarkable. Trace right pleural effusion. No pericardial effusions. The heart is borderline enlarged. No mediastinal or hilar lymphadenopathy. Normal caliber esophagus. The thoracic aorta is also normal in caliber with no evidence for dissection. No fractures within the visualized osseous structures. The central airways are patent. No pneumothorax. Bibasilar linear densities consistent with subsegmental atelectasis. Small focal patchy density within the right lower lobe medially favors atelectasis from the adjacent thoracic spine osteophyte. Otherwise, no focal lung consolidations to suggest pneumonia. No filling defects within the pulmonary arteries to suggest a pulmonary embolus. IMPRESSION: 1. No evidence for pulmonary embolus. 2. Trace right pleural effusion. 3. The heart is borderline enlarged. 4. Additional findings as described above. ACT 112: Negative or not required by law. Electronically signed by: Mark Raza M.D. 07/23/2021 8:47 AM I & O Totals 24 Hours 07/22/21 07/23/21 07/24/21 06:59 06:59 06:59 Intake Total 1000 / 1000 Balance 1000 / 1000 Cumulative 07/22/21 15:55 thru 07/22/21 22:56 Intake Total 1000 Balance 1000 RT Ventilator Mngmt (Last Documented) Ventilator Ordered Settings Respiratory Rate 18 07/23/21 12:00 Ventilator - PT Measurements Respiratory Rate 18 Coding Level of Care Code 62323 Inpt Consult Level 3 Diagnoses Non-ST elevation NJ (NSTEMI) I21.4 Exertional dyspnea R06.00 Pulmonary hypertension I27.20 Systolic heart failure I50.20
[2021-07-23] MEDS ORDERED: PHARMACY GLYCEMIC MGMT CONSULT PRN (15:59)
[2021-07-23] MEDS ORDERED: ICU PROTOCOL FOR HYPERGLYCEMIA PRN (15:59)
[2021-07-23] MEDS ORDERED: INSULIN ASPART 100 UNITS/ML VIAL SC PRN (17:15)
[2021-07-23] MEDS: NovoLOG INSULIN PUMP SCH (21:20)
[2021-07-24] MEDS: HEPARIN SODIUM/DEXTROSE 25,000 UNITS/500 ML BAG IV SCH ×2 (00:36→09:31)
[2021-07-24 05:16] LABS: Partial Thromboplastin Ratio 1.6; Partial Thromboplastin Time 41.7 Seconds (21.0-31.0)
[2021-07-24] MEDS: LEVOTHYROXINE SODIUM 175 MCG TABLET PO SCH ×2 (06:34→08:30)
--- NOTE | 2021-07-24 08:14 | Critical Care Progress Note ---
Date of Service July 24, 2021 Assessment & Plan (1) Systolic heart failure: (2) Pulmonary hypertension: (3) Non-ST elevation [place] (NSTEMI): (4) Diabetes mellitus: Plan: Impression: 65-year-old diabetic admitted with exertional shortness of breath found to have an EF of 20 and wall motion abnormalities concerning for LAD infarct. Her troponin is downtrending and the patient is not having any chest pain so it is unclear when she had her event. Plan is to continue anticoagulation with plans for cardiac catheterization likely on Sunday. Recommendations: 1. Non-ST elevation [place]: Continue heparin. The patient was advised to contact us if she experiences increasing shortness of breath chest pain or palpitations. Troponin downtrending. Anticipate cardiac catheterization in the morning. Okay to eat today. 2. Heart failure: Continue management per cardiology. 3. Pulmonary hypertension: Suspect secondary to reduced EF. Hold on diuretics for now. 4. Diabetes: Continue glycemic control. Patient is currently on her insulin pump. Discussed with patient at bedside. She is in agreement with the plan as outlined. Admission and Anticipated Discharge Date Admission Date: July 22, 2021 Subjective Patient seen and examined. No complaints this morning. No shortness of breath as long as she does not exert herself. She denies any chest pain. No nausea or vomiting. Review of Systems Review of Systems: All systems reviewed & are unremarkable except as noted in HPI & below Physical Exam Constitutional: WD/WN, vitals as above Neck: trachea midline, no thyromegaly Respiratory: normal respiratory effort; no respiratory distress and no labored breathing Auscultation: + rales Cardiovascular: RRR, no murmur, no edema Gastrointestinal (Abdomen): normal bowel sounds, soft, nontender, no hepatosplenomegaly Musculoskeletal: Extremities: extremities normal to inspection Skin: no rashes, warm and dry Neurologic: Nonfocal exam Lymphatic: no cervical lymphadenopathy Results & Data Results & Data ([facility]) Vital Signs (Past 12 Hours) Vital Signs Pulse Resp BP Pulse Ox 07/24/21 06:00 101 H 26 H 141/77 H 93 07/24/21 05:00 62 25 H 100 07/24/21 04:00 68 15 96 07/24/21 03:00 65 15 137/60 100 07/24/21 02:00 65 18 123/71 98 07/24/21 01:00 71 12 119/64 98 07/24/21 00:00 81 19 116/81 94 07/23/21 23:00 64 18 136/88 92 07/23/21 22:00 67 19 117/90 90 07/23/21 21:00 89 18 113/79 95 Critical Care Results & Data Vital Signs (Past 12 Hours) Vital Signs Pulse Resp BP Pulse Ox 07/24/21 06:00 101 H 26 H 141/77 H 93 07/24/21 05:00 62 25 H 100 07/24/21 04:00 68 15 96 07/24/21 03:00 65 15 137/60 100 07/24/21 02:00 65 18 123/71 98 07/24/21 01:00 71 12 119/64 98 07/24/21 00:00 81 19 116/81 94 07/23/21 23:00 64 18 136/88 92 07/23/21 22:00 67 19 117/90 90 07/23/21 21:00 89 18 113/79 95 Lab & Micro Results (Past 24 Hours) No Data to Display Na 138 mmol/L (136-145) 07/23/21 K 3.9 mmol/L (3.5-5.1) 07/23/21 Cl 107 mmol/L (98-107) 07/23/21 CO2 28 mmol/L (21-32) 07/23/21 Anion Gap 3.0 (3-11) 07/23/21 BUN 13 mg/dl (7-18) 07/23/21 Creatinine 0.57 mg/dl (0.6-1.2) L 07/23/21 Estimated GFR ( Amer) 114.3 ml/min 07/23/21 Estimated GFR (Non-Af Amer) 98.7 ml/min 07/23/21 BUN/Creatinine Ratio 22.8 (10-20) H 07/23/21 Glu 152 mg/dl (70-99) H 07/23/21 Ca 8.9 mg/dl (8.5-10.1) 07/23/21 Mg 1.8 mg/dl (1.8-2.4) 07/23/21 09:30 07/23/21 Calcium Level 8.9 mg/dl (8.5-10.1) 07/23/21 09:30 07/23/21 Diagnostic Findings (Past 24 Hours) Chest CTA 07/22/21 20:49 CHEST CTA for PULMONARY ARTERIES CT DOSE: 350.21 mGy.cm HISTORY: Shortness of breath. TECHNIQUE: Multiaxial CT images of the chest were performed following the intravenous administration of contrast to evaluate the pulmonary arteries. Maximal intensity projection images were also obtained. A dose lowering technique was utilized adhering to the principles of ALARA. COMPARISON STUDY: Chest 07/22/2021. FINDINGS: Postoperative changes suggesting prior gastric bypass which is partially visualized on this study. Mild hepatic steatosis. The spleen is unremarkable. Trace right pleural effusion. No pericardial effusions. The heart is borderline enlarged. No mediastinal or hilar lymphadenopathy. Normal caliber esophagus. The thoracic aorta is also normal in caliber with no evidence for dissection. No fractures within the visualized osseous structures. The central airways are patent. No pneumothorax. Bibasilar linear densities consistent with subsegmental atelectasis. Small focal patchy density within the right lower lobe medially favors atelectasis from the adjacent thoracic spine osteophyte. Otherwise, no focal lung consolidations to suggest pneumonia. No filling defects within the pulmonary arteries to suggest a pulmonary embolus. IMPRESSION: 1. No evidence for pulmonary embolus. 2. Trace right pleural effusion. 3. The heart is borderline enlarged. 4. Additional findings as described above. ACT 112: Negative or not required by law. Electronically signed by: Mark Raza M.D. 07/23/2021 8:47 AM I & O Totals 24 Hours 07/23/21 07/24/21 07/25/21 06:59 06:59 06:59 Intake Total 1000 / 1000 693.50 / 693.50 8.8 / 8.8 Output Total 800 / 800 Balance 1000 / 1000 -106.50 / -106.50 8.8 / 8.8 Cumulative 07/22/21 15:55 thru 07/24/21 07:08 Intake Total 1702.30 Output Total 800 Balance 902.30 RT Ventilator Mngmt (Last Documented) Ventilator Ordered Settings Respiratory Rate 26 07/24/21 06:00 Ventilator - PT Measurements Respiratory Rate 26 Coding Level of Care Code 39452 Subseq Hosp Care Lvl 2 Diagnoses Systolic heart failure I50.20 Pulmonary hypertension I27.20 Non-ST elevation [place] (NSTEMI) I21.4 Diabetes mellitus E11.9
[2021-07-24] MEDS: VENLAFAXINE HCL XR 75 MG CAPXR PO SCH (08:22)
[2021-07-24] MEDS: CALCIUM 600MG + VIT D 400 IU TAB PO SCH ×2 (08:22→20:54)
[2021-07-24] MEDS: CHOLECALCIFEROL 1,000 UNITS 25 MCG TAB PO SCH (08:22)
[2021-07-24] MEDS: MULTIVITAMIN TAB PO SCH (08:22)
[2021-07-24] MEDS: ATORVASTATIN 40 MG TAB PO SCH (08:22)
[2021-07-24] MEDS: METOPROLOL TARTRATE 25 MG TAB PO SCH ×2 (08:22→20:54)
[2021-07-24] MEDS: MAGNESIUM OXIDE 400 MG TAB PO SCH (08:22)
[2021-07-24] MEDS: ASPIRIN 81 MG ECTAB PO SCH (08:22)
[2021-07-24] MEDS: buPROPion XL 300 MG TABCR PO SCH (08:23)
[2021-07-24] MEDS: NovoLOG INSULIN PUMP SCH ×4 (09:33→20:55)
--- NOTE | 2021-07-24 09:54 | Electrocardiogram Report ---
Test Reason : Blood Pressure : / mmHG Vent. Rate : 082 BPM Atrial Rate : 082 BPM P-R Int : 128 ms QRS Dur : 082 ms QT Int : 422 ms P-R-T Axes : 068 067 098 degrees QTc Int : 493 ms Normal sinus rhythm Left atrial enlargement T wave abnormality, consider lateral ischemia Prolonged QT Abnormal ECG When compared with ECG of 22-JUL-2021 19:13, Inverted T waves have replaced nonspecific T wave abnormality in Lateral leads Confirmed by Thomas Martin ([id number]) on 07/24/2021 9:54:07 AM Referred By: Brittney Payton Confirmed By:Thomas Martin
--- NOTE | 2021-07-24 10:36 | Cardiology Progress Note ---
Date of Service July 24, 2021 Assessment & Plan Admission and Anticipated Discharge Date Admission Date: July 22, 2021 Subjective Shelli is feeling better this morning. She denies any chest pain or chest pr essure. She has any shortness of breath talking in sentences. She has any lightheadedness or dizziness. Today walking to the bathroom she did not have any anginal symptoms nor was she lightheaded or dizzy or short of breath. She has any bleeding or bruising. She has any palpitations or fluttering. She feels much better this morning compared to yesterday morning. Results & Data ([facility]) Vital Signs (Past 12 Hours) Vital Signs Pulse Resp BP Pulse Ox 07/24/21 06:00 101 H 26 H 141/77 H 93 07/24/21 05:00 62 25 H 100 07/24/21 04:00 68 15 96 07/24/21 03:00 65 15 137/60 100 07/24/21 02:00 65 18 123/71 98 07/24/21 01:00 71 12 119/64 98 07/24/21 00:00 81 19 116/81 94 07/23/21 23:00 64 18 136/88 92 she is awake alert oriented x3 she is in no acute distress faint l HEENT 1+ carotid upstrokes no evidence of carotid bruits Lungs: Clear to auscultation bilaterally with faint crackles in the bases bilaterally Heart: Regular rate and rhythm she has a positive S3 there were no appreciable murmurs Abdomen: Soft and tenderness and a positive bowel sounds Extremities: No clubbing cyanosis or edema Psychiatric: Her affect appeared appropriate EKG sinus rhythm Q waves V1 to V3 but normal R waves in leads V 4 through V6 Echocardiogram personally reviewed suggest the anterior septum and septum are thinned and akinetic the rest of the LAD territory is severely hypokinetic but is not thinned. There is no evidence of LV thrombus or ejection fraction in the range of 25%. Her labs were reviewed including her troponin which is trending down IMPRESSIONS: 1. Non-ST elevation MA 2. What appears to be a prior septal and anterior septal infarct based on EKG and echo criteria 3. Extensive LAD wall motion abnormality with normal wall thickness suggesting the possibility of hibernating myocardium 4. Severe left ventricular dysfunction 5. Longstanding diabetes mellitus type 1 As I discussed with Shelli it looks like she has significant LAD disease and given her longstanding diabetes it is possible she has triple-vessel disease. She is currently pain-free. In discussion with interventional cardiology one would anticipate if she had a large LAD infarct on Sunday her troponin should be markedly elevated at this point. currently it is only minimally elevated which is reassuring that the LAD territory may be viable, a finding confirmed by her echocardiogram and EKG.. Her troponin has trended down. And therefore we can wait for her cardiac catheterization until Sunday. If she were to become unstable or have heart failure symptoms or have resting anginal symptoms then we would need to proceed to the catheterization laboratory over the weekend. She should be admitted to the ICU for close observation. She is already been placed on heparin and 81 mg of aspirin and metoprolol 25 mg twice daily She notes to nursing that on higher doses of Lipitor she had discomfort in her hands. We will stop her Lipitor and switch her over to Crestor which is hydrophilic and better tolerated. She will be n.p.o. after midnight with plans for catheterization tomorrow. If she were to have shortness of breath today 20 mg of IV Lasix can be given given her faint crackles in the bases bilaterally. She was not placed on Plavix yesterday due to the fact that she may have triple- vessel disease given her longstanding diabetes and if she needs open heart surgery it would delay her surgery.
[2021-07-24 12:54] LABS: Partial Thromboplastin Ratio 1.5; Partial Thromboplastin Time 39.7 Seconds (21.0-31.0)
--- NOTE | 2021-07-24 13:33 | Pharmacy Report ---
Pharmacy Glycemic Short Note 2 - Date of Service July 24, 2021 - Glycemic Short BSG Results (Last 24 hours): 07/23/21 07/24/21 16:35 11:38 POC Glucose 150 H 180 H OUTPATIENT ANTIDIABETIC REGIMEN: * Novolog pump with basal rates as follows: * 7562-8016: 0.2 units/hr * 4516-8549: 0.5 units/hr * 1535-4179: 0.55 units/hr * 9747-4138: 0.45 units/hr * Carbohydrate ratios = 9.5-11 * CR 70-76 ASSESSMENT and PLAN: * Pt is to manage BSGs with insulin pump per outpatient settings. * RN will have patient read and sign agreement [id number] Insulin Pump Therapy Patient Agreement. * RN will provide and explain form NS-824 Flowsheet for Patient * Patient will document their insulin dose given on NS-824 which is kept at the bedside, available to caregivers upon request, and which becomes part of the permanent medical record. If at any time the patients condition evidences that he/she is not able to manage the insulin pump (i.e. frequent hypo/hyperglycemia) Pharmacy will assume glycemic control by discontinuing the pump & managing with SQ basal bolus insulin regimen for the interim. PLAN FOR DISCHARGE: * Continue to follow with [facility].
--- NOTE | 2021-07-24 18:04 | Hospitalist Progress Note ---
Date of Service July 24, 2021 Assessment & Plan (1) Non-ST elevation AK (NSTEMI): Plan: Elevated troponin/sinus tachycardia/NSTEMI/exertional dyspnea- The patient was admitted to telemetry for serial cardiac enzymes, serial EKG's, cardiac rhythm monitoring. EKG shows possible anteroseptal AK, with the EKG being slightly different from previous Echocardiogram showed apex with wall motion abnormalities. Suspected to be occlusion of the LAD Continue heparin drip Will need aspirin 81 mg daily Will need beta-musa and JONNIE inhibitor as tolerated Patient on atorvastatin 10 mg daily. Change to Crestor as patient had hand pain with higher doses of atorvastatin in the past Continue beta-musa with metoprolol tartrate 25 mg p.o. twice daily Consult cardiology -appreciate Dr. Martin's input Due to findings on echocardiogram, will monitor patient in the intensive care unit. N.p.o. after midnight tonight. Decision to be made tomorrow regarding cardiac catheterization (2) Sinus tachycardia: Plan: Continue metoprolol tartrate CT angiography chest PE protocol was negative for PE Continue to monitor on telemetry Most likely due to acute findings of AK (3) Exertional dyspnea: Plan: Improved today Appears to be cardiac related We will treat underlying AK PT eval prior to discharge if this continues (4) Controlled type 1 diabetes mellitus, with long-term current use of insulin: Plan: Continue insulin pump and home coverage for now We will consult pharmacy for glycemic management as patient will require n.p.o. status for probable cardiac catheterization on Sunday Patient follows with [facility] in the endocrinology office OUTPATIENT ANTIDIABETIC REGIMEN: Novolog pump with basal rates as follows: 6078-2374: 0.2 units/hr 2096-1256: 0.5 units/hr 2159-5372: 0.55 units/hr 3987-9798: 0.45 units/hr Carbohydrate ratios = 9.5-11 CR 70-76 ASSESSMENT and PLAN: Pt is to manage BSGs with insulin pump per outpatient settings. RN will have patient read and sign agreement CF [id number] Insulin Pump Therapy Patient Agreement. RN will provide and explain form NS-824 Flowsheet for Patient Patient will document their insulin dose given on NS-824 which is kept at the bedside, available to caregivers upon request, and which becomes part of the [facility] medical record. If at any time the patients condition evidences that he/she is not able to manage the insulin pump (i.e. frequent hypo/hyperglycemia) Pharmacy will assume glycemic control by discontinuing the pump & managing with SQ basal bolus insulin regimen for the interim. (5) Anxiety and depression: Plan: Continue bupropion and venlafaxine Emotional support and education regarding disease as possible (6) Hypothyroid: Plan: Continue levothyroxine 135 mcg daily (7) Dyslipidemia: Plan: Change to Crestor per cardiology guidelines Outpatient management (8) DVT prophylaxis: Plan: Heparin drip for cardiac related issues Bedrest for now but increase ambulation when medically safe Admission and Anticipated Discharge Date Admission Date: July 22, 2021 Subjective Attending: Dr. Joseph Patient seen and examined at bedside. She has no further chest pain. She has no esophageal reflux. No diaphoresis. She is ambulating in the room without difficulty. No pain in shoulder neck or arm. Feels improved since time of admission. Review of Systems Review of Systems: All systems reviewed & are unremarkable except as noted in Subjective Physical Exam Physical Exam: GENERAL : No acute distress EYES: No icterus, gaze conjugate NOSE: No evidence of epistaxis MOUTH: No lesions or candidiasis NECK: Supple LUNGS: CTA B/L, no wheezes, rales or rhonchi HEART: Regular, rate controlled. No appreciation of ectopy ABDOMEN: Soft, NT, ND, BS Present EXTREMITIES: No LE edema, pedal pulses intact NEURO: A&OX3 Results & Data Results & Data ([facility]) Vital Signs (Past 12 Hours) Vital Signs Temp Pulse Resp BP Pulse Ox 07/24/21 13:00 68 20 103/62 97 07/24/21 12:00 68 18 101/71 97 07/24/21 11:00 69 24 105/66 94 07/24/21 10:00 69 18 104/62 100 07/24/21 09:00 68 14 135/90 98 07/24/21 08:00 36.6 C 82 15 142/96 H 98 07/24/21 07:00 72 18 117/76 98 07/24/21 06:00 101 H 26 H 141/77 H 93 Laboratory Results 07/22/21 19:24 07/23/21 09:30 07/22/21 07/23/21 07/23/21 19:24 09:30 16:33 Troponin I 0.297 H* 0.163 H* 0.141 H* Diagnostic Findings No further diagnostic imaging PG Care Time/CCT Total # of Minutes Spent Total Time Spent with Patient: Total time spent is greater than 50% in coordination of care (as documented) at patient's floor/unit and/or counseling patient:20 minutes Coding Level of Care Code 96941 Subseq Hosp Care Lvl 2 Diagnoses Non-ST elevation AK (NSTEMI) I21.4 Sinus tachycardia R00.0 Exertional dyspnea R06.00 Controlled type 1 diabetes mellitus, with long-term current use of insulin E10.9 Anxiety and depression F41.9; F32.9 Hypothyroid E03.9 Dyslipidemia E78.5 DVT prophylaxis Z29.9 Time Spent (min) 20
[2021-07-24 19:48] LABS: Partial Thromboplastin Ratio 1.8
[2021-07-24 20:17] LABS: Partial Thromboplastin Time 46.3 Seconds (21.0-31.0)
[2021-07-25 05:12] LABS: Hemoglobin 11.5 g/dL (12.0-16.0); Mean Corpuscular Hemoglobin 28.2 pg (25-34); Mean Corpuscular Hgb Conc 31.9 g/dL (32-36); Mean Corpuscular Volume 88.2 fL (80-100); Mean Platelet Volume 10.3 fL (7.4-10.4); Platelet Count 161 K/uL (130-400); RDW Coefficient of Variation 14.4 % (11.5-14.5); RDW Standard Deviation 46.3 fL (36.4-46.3); Red Blood Count 4.08 M/uL (4.2-5.4); White Blood Count 5.63 K/uL (4.8-10.8)
[2021-07-25 05:40] LABS: BUN Creatinine Ratio 25.6 (10-20); Calcium 8.4 mg/dl (8.5-10.1); Est GFR (African American) 106.9 ml/min; Est GFR (Non-African American) 92.2 ml/min; Magnesium 1.7 mg/dl (1.8-2.4); Potassium 4.1 mmol/L (3.5-5.1)
[2021-07-25] MEDS ORDERED: MAGNESIUM SULFATE / D5W 1 GM/100 ML BAG IV ONE (06:10)
[2021-07-25 06:21] LABS: Phosphorus 4.1 mg/dl (2.5-4.9); Troponin I 0.056 ng/ml (0-0.045)
[2021-07-25] MEDS: LEVOTHYROXINE SODIUM 175 MCG TABLET PO SCH (06:32)
--- NOTE | 2021-07-25 06:34 | Critical Care Progress Note ---
Date of Service July 25, 2021 Assessment & Plan (1) Non-ST elevation [place] (NSTEMI): Plan: Reason Critically Ill: Shelli is a 65-year-old emale with history of T1DM, HLD, anxiety, hypothyroidism, pancreatic mass, chronic hypercapneic respiratory failure who presented for SOB and chest discomfort, subsequently found to have evidence of an NSTEMI and echo findings concerning for an LVEF of 20% with possible LAD-related wall motion abnormalities. She is currently on heparin gtt. in anticipation of catheterization Sunday. Neuro - No acute needs at this time. Continue Wellbutrin for anxiety/depression. Cardiac - NSTEMI - Interestingly, her troponin at 0.297 reported admission was her max value and has downtrended. Her TTE, however, revealed severe left ventricular dysfunction with an LVEF of 25 and wall motion abnormalities c/w an LAD infarct. The acuity of this is not clear - especially considering her minimally elevated troponin. However, improvement on heparin gtt noted. To porcelain enamel laborer this morning for further investigation and characterization of coronary disease. Cardiology following, appreciate assistance -- continue aspirin and metoprolol. Continue Crestor. Hold Plavix until catheterization is complete to rule out triple-vessel disease in case of need for further intervention. HFrEF - LVEF 25% with the findings and plan aforementioned. Not requiring diuresis at present. Respiratory - Pulmonary HTN - appreciated on TTE, likely secondary to HFrEF. Hold diuresis. GI - NPO in anticipation of procedure. RENAL/LYTES - Electrolytes stable, monitor and replete as needed. - No concerns at this time. Monitor intake and output. ENDO - Patient with known history of type 1 diabetes. Using her insulin pump, we will continue this. Continue levothyroxine for her hypothyroidism. HEME - Stable H&H. Continue to monitor in setting of heparin GTT. ID - No concerns for infection at this point. INTEGUMENTARY - No acute needs at this time. Monitor. LINES/IV ACCESS - PIVs intact. DVT PROPHYLAXIS - Heparin GTT in setting of NSTEMI. Thank you for allowing us to be part of this patient's care. Please refer to Dr. Valdovinos's documentation for any further recommendations. (2) Sinus tachycardia: (3) Pulmonary hypertension: (4) Exertional dyspnea: (5) Controlled type 1 diabetes mellitus, with long-term current use of insulin: (6) Anxiety and depression: (7) Hypothyroid: (8) History of gastric bypass: (9) Diabetes mellitus: Admission and Anticipated Discharge Date Admission Date: July 22, 2021 Supervising Physician Co-Signing Physician Notes Dr. Richey was resident physician during care of patient. I separately evaluated patient for smith portions of the history and the exam. I was present during the critical portion of medical decision making, and I discussed the case with the resident. I generally agree with the findings and plan. Presumptive takosubo bruise cardiomyopathy already underwent cardiac cath. Hemodynamically stable stable for downgrade out of ICU today. Subjective No acute events overnight. At the bedside this morning, patient reports feeling "much better than before." She is able to get up out of bed and go to the commode without any shortness of breath. She says she was able to get a good amount of sleep without any shortness of breath. Denies any chest pain or discomfort. Looking forward to the catheterization today. Review of Systems Review of Systems: Constitutional: Denies Fatigue or chills Eyes: Denies Vision changes ENT: Denies Facial pain Cardiovascular: Denies Chest pain, chest pressure, palpitations, extremity swelling Respiratory: Denies shortness of breath, cough Gastrointestinal: Denies abdominal pain, nausea, Genitourinary: Denies urinary Issues Musculoskeletal: Denies weakness Integumentary:Denies rash Neurological: Denies headache Results & Data Results & Data ([facility]) Vital Signs (Past 12 Hours) Vital Signs Pulse Resp BP Pulse Ox 07/25/21 05:00 64 13 99/51 L 100 07/25/21 04:00 59 L 16 97/53 L 100 07/25/21 03:00 63 15 86/51 L 100 07/25/21 02:00 63 16 108/64 91 07/25/21 01:00 65 15 97/59 L 92 07/25/21 00:00 72 18 89/54 L 92 07/24/21 23:00 65 17 95/52 L 91 07/24/21 22:00 70 25 H 91/49 L 83 L 07/24/21 21:00 68 17 118/66 100 07/24/21 20:00 83 25 H 111/62 07/24/21 19:00 83 26 H 115/72 Resident Activity Tracking Resident Involvement: Resident Care Provided Care Provided: Adult [facility] Medicine
[2021-07-25 06:45] LABS: Partial Thromboplastin Ratio 1.8
[2021-07-25 07:36] LABS: Estimated Average Glucose 154 mg/dl
[2021-07-25] MEDS ORDERED: niCARdipine HCL INJ 2.5 MG/ML 10 ML AMP ONE (07:41)
[2021-07-25] MEDS ORDERED: HEPARIN (PORCINE) 1000 UNIT/ML 10 ML (CATH LAB USE ONLY) ONE (07:41)
[2021-07-25] MEDS ORDERED: fentaNYL citrate 100 MCG/2 ML VIAL ONE (07:41)
[2021-07-25] MEDS ORDERED: NITROGLYCERIN/D5W 100MCG/ML 20ML SYR ONE (07:42)
[2021-07-25] MEDS ORDERED: MIDAZOLAM HCL 1 MG/ML 2ML VIAL ONE (07:42)
--- NOTE | 2021-07-25 07:56 | XRay Report ---
XR chest 1V portable HISTORY: Shortness of breath. Possible cardiac cath COMPARISON: Chest CTA 07/22/2021. FINDINGS: No pneumothorax. The heart remains mildly enlarged. There is progression of the interstitia l/vascular thickening and small bilateral pleural effusion with bibasilar densities. This consistent with mild interstitial pulmonary edema. Bibasilar densities favor atelectasis from the pleural effusi ons. IMPRESSION: Interval progression of the mild interstitial pulmonary edema and small bilateral pleural effusion/de nsities. ACT 112: Negative or not required by law. Electronically signed by: Mark Raza M.D. 07/25/2021 7:54 AM
--- NOTE | 2021-07-25 08:20 | Pre Anesthesia Assessment ---
Date of Service July 25, 2021 Pre Sedation Assessment Vital Signs Temp Pulse Pulse Resp BP BP Pulse Ox 07/25/21 07:41 98.6 F 73 16 151/115 H 91 07/25/21 05:00 64 13 99/51 L 100 07/25/21 04:00 59 L 16 97/53 L 100 07/25/21 03:00 63 15 86/51 L 100 07/25/21 02:00 63 16 108/64 91 07/25/21 01:00 65 15 97/59 L 92 07/25/21 00:00 72 18 89/54 L 92 07/24/21 23:00 65 17 95/52 L 91 07/24/21 22:00 70 25 H 91/49 L 83 L 07/24/21 21:00 68 17 118/66 100 07/24/21 20:00 83 25 H 111/62 07/24/21 19:00 83 26 H 115/72 07/24/21 18:00 71 23 97 07/24/21 17:00 67 18 98 07/24/21 16:00 67 25 H 114/74 97 07/24/21 15:00 62 23 102/68 100 07/24/21 14:00 83 20 07/24/21 13:00 68 20 103/62 97 07/24/21 12:00 68 18 101/71 97 07/24/21 11:00 69 24 105/66 94 07/24/21 10:00 69 18 104/62 100 07/24/21 09:00 68 14 135/90 98 Cardiovascular RRR, no murmur, no edema Respiratory normal respiratory effort, lungs clear to auscultation Pre-Sedation Airway Assessment Smoking Status: Former smoker Hx Sleep Apnea: Yes Hx Difficult Intubation: No Short, Thick Neck: No Thyromental Distance: > or= 3.5 Finger Breadths Oral Cavity: + WNL Mallampati Class: III ASA: ASA2 NPO Status Date of Last Intake of Fluids: 07/24/21 Time of Last Intake of Fluids: 20:00 Date of Last Intake of Solid Food: 07/24/21 Time of Last Intake of Solid Foods: 20:00 Procedure Planning Contraindications for Sedation: none Current Medications Reviewed: Yes Notes The planned sedation has been discussed with the patient. Informed Consent was obtained. I have identified the patient, determined the appropriateness of sedation and have assessed the patient immediately prior to the procedure. All medicine(s) and interventions are by my order.
--- NOTE | 2021-07-25 08:57 | Post Anesthesia Assessment ---
Date of Service July 25, 2021 Post Sedation Assessment Vital Signs Temp Pulse Pulse Resp BP BP Pulse Ox 07/25/21 07:41 98.6 F 73 16 151/115 H 91 07/25/21 05:00 64 13 99/51 L 100 07/25/21 04:00 59 L 16 97/53 L 100 07/25/21 03:00 63 15 86/51 L 100 07/25/21 02:00 63 16 108/64 91 07/25/21 01:00 65 15 97/59 L 92 07/25/21 00:00 72 18 89/54 L 92 07/24/21 23:00 65 17 95/52 L 91 07/24/21 22:00 70 25 H 91/49 L 83 L 07/24/21 21:00 68 17 118/66 100 07/24/21 20:00 83 25 H 111/62 07/24/21 19:00 83 26 H 115/72 07/24/21 18:00 71 23 97 07/24/21 17:00 67 18 98 07/24/21 16:00 67 25 H 114/74 97 07/24/21 15:00 62 23 102/68 100 07/24/21 14:00 83 20 07/24/21 13:00 68 20 103/62 97 07/24/21 12:00 68 18 101/71 97 07/24/21 11:00 69 24 105/66 94 07/24/21 10:00 69 18 104/62 100 07/24/21 09:00 68 14 135/90 98 Recovery Score Activity: Moves 4 extremities Respiration: Deep Breath/Cough Circulation: +/-20% PreAnes Value Consciousness: Fully Awake Oxygen Saturation: O2 needed for >90% Discharge Sedation Level of Care: Fast Track Phase II Post Sedation Plan On clinical assessment, the patient appears to have tolerated the sedation without complications. Patient is recovering as anticipated. Patient will continue to be monitored by nursing and may be discharged when sedation discharge criteria are met per below protocol. Upon Completions of procedure up to 15 minutes continue every 5 minute vital signs and the P.A.R. score; then discharge to a Phase I or Fast Track to Phase II per the following guidelines: * Discharge Patient to appropriate Phase II area if PAR is 8 or greater or return to pre- procedure baseline. The post - procedure orders will be as directed. * If PAR score is less than 8 or not return to pre-procedure baseline then patient will follow Phase I monitoring till PAR is reached for Phase II. The Phase I may be done in procedure room or may call to secure a Phase I area. * If naloxone or flumazenil are used for reversal, hold in Phase I for continued monitoring from when last reversal dose was given for a minimum of 60 minutes or longer pending the nurse and/or physician discretion of patient condition before discharge to Phase II. Please call the Sedation Physician to re-evaluate and complete post-note for discharge to Phase II area. Do NOT discharge from procedure sedation or Phase 1 until post- sedation evaluation note is complete by procedure /sedation MD Sedation Discharge Instructions to be given to the patient at discharge to home.
[2021-07-25] MEDS ORDERED: ROSUVASTATIN CALCIUM 10 MG TAB PO SCH (09:00)
[2021-07-25] MEDS: NovoLOG INSULIN PUMP SCH (09:08)
--- NOTE | 2021-07-25 09:23 | Cardiac Catheterization ---
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 Cardiac Status Clinical evaluation leading to the procedure CAD Presenation: Non STEMI Anginal Classification: CCS IV Heart Failure: NYHA Class: CCS IV Cardiogenic Shock within 24 Hours: No Cardiac Arrest within 24 Hours: No Imaging Studies Past 6 Months: Yes Stress Studies Past 6 Months: No Diagnostic Physicians Name: Nicola Garcia MD Status: Elective Closure Device Percutaneous Entry Location: Radial Closure Device: Radial Band Recommendations: Medical Therapy and/or Counseling Intraprocedure Events Significant Disection: No Perforation: No Cardiac Cath Procedure Full Procedure Date July 25, 2021 Pre-Procedure Diagnosis Pre-Procedure Diagnosis: Non STEMI and Cardiomyopathy AUC Score AUC Score: 7 Post-Procedure Diagnosis Post-Procedure Diagnosis: Normal Coronary Arteries and Normal Intracardiac Pressures Procedure(s) Performed Procedure(s) Performed: Coronary Angiography and Left Heart Cath Supervisor Webbing Nicola Garcia MD Director Digital Marketing(s) Aydin Estimated Blood Loss Estimated Blood Loss: 5 Medication(s) Medication(s): Fentanyl, Lidocaine 1%, Nicardipine, Nitroglycerin and Versed Summary of Findings Indication: NSTEMI, severe LV dysfunction Access: 6 Fr right radial artery Catheters: Channing Findings: LM -Short, almost separate ostium, no significant disease LAD -medium caliber, tortuous, proximal luminal irregularities, no significant disease. Distal vessel wraps around apex. Circumflex -dominant, large caliber, tortuous, no significant disease RCA -small, nondominant, no significant disease LVEDP -2 Arterial Closure: TR band Summary: 1. Essentially normal coronary arteries angiographically. 2. Normal intracardiac filling pressure. Recommendations: Guideline directed medical therapy for nonischemic cardiomyopathy. Continued ASCVD risk factor modification. Hemodynamics Rest Ao:: 111/47/75 Final Ao: 92/42/62 LV: -- Recommendations Recommendations: Medical Therapy and/or Counseling Specimens Specimens: None Radiation Exposure (mGy) 446 Contrast (mls) 60 Fluids (cc crystalloids) Fluids (cc crystalloids): 40 Drains Drains: none Anesthesia moderate [id number] Procedural Complication(s) None Disposition PCU I attest to the content of the Intraoperative Record and any orders documented therein. Any exceptions are noted below. SchedulicityG Card Cath Procedure Codes Cardiac Catheterization Procedure 1: Cardiovascular Cath Procedures: 03650 Coronaries and LHC (+/-LV) Moderate Sedation Procedure 1: Sedation/Anesthesia: 04340 Mod Sedation by the same physician;Init15 Min Child Age 5 & Up PG Care Time/CCT Total # of Minutes Spent Total Time Spent with Patient: Total time spent is greater than 50% in coordination of care (as documented) at patient's floor/unit and/or counseling patient:
[2021-07-25] MEDS ORDERED: SODIUM CHLORIDE 0.9% 1000ML 1,000 ML IV SCH (09:45)
--- NOTE | 2021-07-25 09:59 | Cardiology Progress Note ---
Date of Service July 25, 2021 Assessment & Plan (1) Systolic heart failure: Plan: 2. Nonischemic cardiomyopathy 3. Type 1 DM 4. Moderate pulmonary hypertension Cardiac cath today showed no significant CAD. LVEDP normal. Etiology of NICM unclear. Echo pattern consistent with Takotsubo's. Viral myocarditis also possible. Timing of flu vaccine and symptoms raises possibility of vaccine induced myocarditis but rare. For completeness would rule out lyme. Will need to optimize GDMT - transition to toprol XL, will start ARB. Euvolemic to dry on exam/LHC. Daily weights, salt restriction and PRN lasix 20mg for recurrent symptoms on discharge. Continue increased statin, ASA. Follow-up with me in 1 week. From a cardiac standpoint OK with discharge later today post TR band removal. Admission and Anticipated Discharge Date Admission Date: July 22, 2021 Subjective Feeling well today. Breathing improved when up walking to bathroom. No chest pain. Review of Systems Review of Systems: All systems reviewed & are unremarkable except as noted in HPI & below Physical Exam Physical Exam: General: Comfortable, no acute distress Eyes: Sclerae anicteric Lungs: Clear to auscultation bilaterally Cardiac: Regular rate and rhythm, no murmurs Abdomen: Soft, nontender Neuro: Nonfocal Psych: Alert orient x3, normal affect and mood Extremities/Vascular: -- 2+ radial bilaterally -- TR band in place over right radial artery -- No edema Results & Data ([facility]) Vital Signs (Past 12 Hours) Vital Signs Temp Pulse Pulse Resp BP BP Pulse Ox 07/25/21 07:41 98.6 F 73 16 151/115 H 91 07/25/21 05:00 64 13 99/51 L 100 07/25/21 04:00 59 L 16 97/53 L 100 07/25/21 03:00 63 15 86/51 L 100 07/25/21 02:00 63 16 108/64 91 07/25/21 01:00 65 15 97/59 L 92 07/25/21 00:00 72 18 89/54 L 92 07/24/21 23:00 65 17 95/52 L 91 07/24/21 22:00 70 25 H 91/49 L 83 L PG Care Time/CCT Total # of Minutes Spent Total Time Spent with Patient: Total time spent is greater than 50% in coordination of care (as documented) at patient's floor/unit and/or counseling patient: Coding Level of Care Code 82467 Subseq Hosp Care Lvl 3 Diagnoses Systolic heart failure I50.20
[2021-07-25] MEDS ORDERED: LOSARTAN POTASSIUM 25 MG TAB PO SCH (10:00)
--- NOTE | 2021-07-25 10:02 | Billing Data ---
Date of Service July 25, 2021 Coding Level of Care Code 80803 Subseq Hosp Care Lvl 3
[2021-07-25] MEDS: CALCIUM 600MG + VIT D 400 IU TAB PO SCH (10:55)
[2021-07-25] MEDS: ASPIRIN 81 MG ECTAB PO SCH (10:55)
[2021-07-25] MEDS: buPROPion XL 300 MG TABCR PO SCH (10:55)
[2021-07-25] MEDS: VENLAFAXINE HCL XR 75 MG CAPXR PO SCH (10:56)
[2021-07-25] MEDS: MAGNESIUM OXIDE 400 MG TAB PO SCH (10:56)
[2021-07-25] MEDS: MULTIVITAMIN TAB PO SCH (10:56)
[2021-07-25] MEDS: CHOLECALCIFEROL 1,000 UNITS 25 MCG TAB PO SCH (10:56)
--- NOTE | 2021-07-25 12:42 | Discharge Summary ---
Date of Service July 25, 2021 Admission HPI Per Admitting Provider The patient is a 65-year-old female with a past medical history including dyslipidemia, diabetes mellitus type 1, anxiety and depression, hypothyroidism, proctocolitis, pancreatic mass, thrombocytopenia, history of C. difficile colitis, history of gastric bypass, and chronic hypercapnic respiratory failure. Patient presents with symptoms as noted above. Abnormal laboratories: Troponin 0.297, AST 114, glucose 299. EKG shows sinus tachycardia 118 bpm, with questionable anteroseptal infarct of unspecified duration Patient was begun on heparin drip by the emergency department, which will be continued She was also given Lopressor 5 mg IV, which brought her heart rate from the high 110s down to the upper 90s. Discharge Data Allergies Allergy/AdvReac Type Severity Reaction Status Date / Time No Known Drug Allergies Allergy Unknown Verified 07/22/21 20:51 petrolatum,white AdvReac Severe Swelling Verified 07/22/21 20:51 [From Petroleum Jelly] around eyes Consultations 07/22/21 22:17 ED Decision to Admit Stat 07/23/21 11:41 Consult Cardiology Routine 07/23/21 15:59 Consult Appeals Specialist Routine Procedures Performed Operation Date: 07/25/21 08:00 Actual Procedures p Cath, Left with Cors and Vent - Emre Garcia MD s Cineradiography w/Routine Exam - Emre Garcia MD Ordered Studies 07/22/21 20:49 CT angio chest PE protocol Urgent 07/25/21 07:07 CL Cath Imgs for PACS use only Routine 07/25/21 07:59 CL Cath Imgs for PACS use only Routine Hospital Course (1) Nonischemic cardiomyopathy: (2) Non-ST elevation LA (NSTEMI): Elevated troponin/sinus tachycardia/NSTEMI/exertional dyspnea- The patient was admitted to telemetry for serial cardiac enzymes, serial EKG's, cardiac rhythm monitoring. EKG shows possible anteroseptal LA, with the EKG being slightly different from previous Echocardiogram showed apex with wall motion abnormalities. Suspected to be occlusion of the LAD Continue heparin drip Will need aspirin 81 mg daily Will need beta-musa and JONNIE inhibitor as tolerated Patient on atorvastatin 10 mg daily. Change to Crestor as patient had hand pain with higher doses of atorvastatin in the past Continue beta-musa with metoprolol tartrate 25 mg p.o. twice daily Consult cardiology -appreciate Dr. Martin's input Due to findings on echocardiogram, will monitor patient in the intensive care unit. N.p.o. after midnight tonight. Decision to be made tomorrow regarding cardiac catheterization (3) Sinus tachycardia: Continue metoprolol tartrate CT angiography chest PE protocol was negative for PE Continue to monitor on telemetry Most likely due to acute findings of LA (4) Exertional dyspnea: Improved today Appears to be cardiac related We will treat underlying LA PT eval prior to discharge if this continues (5) Controlled type 1 diabetes mellitus, with long-term current use of insulin: Continue insulin pump and home coverage for now We will consult pharmacy for glycemic management as patient will require n.p.o. status for probable cardiac catheterization on Sunday Patient follows with [facility] in the endocrinology office OUTPATIENT ANTIDIABETIC REGIMEN: Novolog pump with basal rates as follows: 2193-3662: 0.2 units/hr 6885-0631: 0.5 units/hr 0561-5738: 0.55 units/hr 8261-2126: 0.45 units/hr Carbohydrate ratios = 9.5-11 CR 70-76 ASSESSMENT and PLAN: Pt is to manage BSGs with insulin pump per outpatient settings. RN will have patient read and sign agreement CF [id number] Insulin Pump Therapy Patient Agreement. RN will provide and explain form [id number] Flowsheet for Patient Patient will document their insulin dose given on NS-824 which is kept at the bedside, available to caregivers upon request, and which becomes part of the permanent medical record. If at any time the patients condition evidences that he/she is not able to manage the insulin pump (i.e. frequent hypo/hyperglycemia) Pharmacy will assume glycemic control by discontinuing the pump & managing with SQ basal bolus insulin regimen for the interim. (6) Anxiety and depression: Continue bupropion and venlafaxine Emotional support and education regarding disease as possible (7) Hypothyroid: Continue levothyroxine 135 mcg daily (8) Dyslipidemia: Change to Crestor per cardiology guidelines Outpatient management (9) DVT prophylaxis: Heparin drip for cardiac related issues Bedrest for now but increase ambulation when medically safe Discharge Plan Discharge Items Patient Disposition: Home - Self-Care Reason For Visit: ELEVATED TROPONIN, CHEST PRESSURE Discharge Diagnosis: Nonischemic cardiomyopathy Condition on Discharge: Fair Activity: As commented below Lifting: No more than 5 pounds Bathing: Keep incision dry Exercise Comment: Ok to perform household activities and light shopping Driving/Machine Use: Resume 3 days after discharge Non-emergency contact: Primary Care Provider and Drill Runner Helper Call non-emergency contact if: you have any medication questions and your symptoms worsen Follow-up/Referrals: Brittney Payton MD [Primary Care Provider] - Diet: Carb Count or DM1, Heart Healthy and Low Sodium (2gm) Fluids: 2000ml (8 cups) Addtl Attending Provider Instructions: You were admitted for a suspected heart attack but had a cardiac catheterization which showed no heart blockages. You do have heart failure or cardiomyopathy that was seen on an ultrasound of the heart. This may be due to Takotsubo's cardiomyopathy (Broken Heart Syndrome) or a viral myocarditis. A Lyme disease test was drawn and result pending at the time of discharge as well as Lyme can cause myocarditis. You will be started on some new medications to strengthen the heart: metoprolol and losartan. Your cholesterol drug was changed to Crestor (rosuvastatin). Follow up with Dr. Garcia in 1 week-this will be scheduled for you. ACTIVITY RECOMMENDATIONS: Excess manipulation of the wrist should be avoided for the next 24-48 hours. * No lifting over 2 pounds (approximately a 1/2 gallon of milk) with the utilized arm for 24 hours. * No strenuous activity such as bowling or tennis for 3 days. * Keep the site of the procedure covered with a bandage for 24 hours. *You may shower the day after the procedure. Do not take a tub bath or submerge the puncture site in water for the next 3 days. *Do not operate any motorized equipment for 3 days. SPECIAL CARE INSTRUCTIONS: The site may be slightly bruised and sore following your procedure. Should any of the following occur, contact the Dr. who performed your procedure. 1. Redness/inflammation, swelling, chills, or fever, or colored drainage at procedure site within 3-7 days after your procedure. 2. Coldness, discoloration, ongoing numbness, severe pain, or swelling. Expect mild tingling of hand and tenderness at the puncture site for up to three days. If this persists beyond three days, or other symptoms develop, notify the DrJames who performed your procedure. BLEEDING: If the procedure site on your wrist begins to bleed, do not panic 1. Place 1 or 2 fingers firmly just slightly above the insertion site to stop the bleeding. You may be able to feel your pulse as you hold pressure. 2. Lift your finger after 5 minutes to see if the bleeding has stopped. 3. Once the bleeding has stopped, gently wipe the wrist area clean with a bandage. * If the bleeding from your wrist does not stop after 10 minutes, or if there is a large amount of bleeding or spurting, call 911 (do not drive yourself to the hospital). SKIN IRRITATION: * You may experience some redness and/or swelling in the area where radiation was administered. If any skin irritation occurs, please contact your family physician. FOLLOW UP VISIT: Keep any scheduled doctor appointments. Call your Primary Care doctor if any of the following symptoms or problems start or get worse: * Shortness of breath or difficulty breathing * Wake up at night short of breath * Chest pain * Cough * Swelling of your hands, feet, or legs * More fatigued or tired with your normal activity * Palpitations - sudden fast heart beats WEIGHT * Weigh yourself every morning after using the bathroom. * Use the same scale. * Wear the same amount of clothing. * Write your weight down on a chart. * Call your Primary Care doctor if you gain more than 2-3 pounds in 1-2 days. MEDICATIONS * Use this discharge instruction sheet for medication instructions. * Take your medications at the time your doctor ordered. * Do not skip a dose of your medicines. * If you miss a dose of medicine, take it as soon as possible, but DO NOT DOUBLE A DOSE. * Read your medicine information when you get home. * Know all of the side effects of your medicine. If in doubt, ask your pharmacist * Call your Primary Care doctor's office if you have any side effects. * Be sure all of your doctors know what medicine and herbs you take (including cold, flu, and herbal medicine). Take the following with you to your follow-up doctor appointments: * Weight Chart * Medication List * List of questions Do not drink excessive alcohol, beer or wine. Pending Studies at Discharge: Yes (Lyme Disease) Stand-Alone Forms: [employer], Smoking Cessation Medications and DC Order Prescriptions: New losartan 25 mg Tablet 25 mg PO QAM Qty: 30 RF: 0 metoprolol succinate 25 mg Tablet Extended Release 24 Hr 25 mg PO QAM Qty: 30 RF: 0 rosuvastatin [Crestor] 10 mg Tablet 10 mg PO QAM Qty: 30 RF: 0 furosemide [Lasix] 20 mg tablet 20 mg PO DAILY PRN (Reason: edema or weight gain>2-3 lbs/24 hrs) Qty: 10 RF: 0 Continued Novolog U-100 Insulin aspart 100 unit/mL solution See Rx Instructions .ROUTE .COMPLEX Qty: 40 RF: 3 levothyroxine 175 mcg tablet 175 mcg PO DAILY Qty: 90 RF: 3 (DME) acetone (urine) test strip See Dose Instructions .ROUTE .MEDSUPPLY Qty: 25 RF: 5 bupropion HCl 300 mg tablet extended release 24 hr 300 mg PO QAM RF: 0 diphenhydramine HCl [Benadryl] 25 mg capsule 25 mg PO TID PRN (Reason: Allergy Symptoms) RF: 0 magnesium oxide 400 mg magnesium tablet 400 mg PO DAILY RF: 0 Airborne Gummy 250-11.66 mg tablet,chewable 1 tab PO DAILY PRN (Reason: pt choice) RF: 0 apple cider vinegar gummies 2,000 mg PO BID RF: 0 venlafaxine 75 mg capsule,extended release 24hr 75 mg PO DAILY RF: 0 calcium carbonate-vitamin D3 [Calcium 500 + D] 500 mg(1,250mg) -400 unit Tablet 1 tab PO BID RF: 0 Women's One Daily 18 mg iron-400 mcg-500 mg Ca Tablet 1 tab PO DAILY RF: 0 cholecalciferol (vitamin D3) [Vitamin D3] 1,000 unit Capsule 1,000 unit PO DAILY RF: 0 cyanocobalamin (vitamin B-12) 1,000 mcg/mL solution 1,000 mcg IM .COMPLEX RF: 0 biotin 10,000 mcg capsule 10,000 mcg PO DAILY RF: 0 Discontinued atorvastatin 10 mg tablet 10 mg PO .COMPLEX 90 Days Qty: 45 RF: 3 Discharge Orders: Discharge Order (Routine); Ordered 07/25/21 Ordered By: Brigid Ramirez Admission Data Admit Date/Time: 07/22/21 23:40 Attending Provider: Brgiid Ramirez Admit Provider: Mirza Walter Primary Care Provider: Brittney Payton Other Providers: Mirza Walter ; Thomas Martin ; Hussain Landa Coding Diagnoses Non-ST elevation LA (NSTEMI) I21.4 Sinus tachycardia R00.0 Exertional dyspnea R06.00 Controlled type 1 diabetes mellitus, with long-term current use of insulin E10.9 Anxiety and depression F41.9; F32.9 Hypothyroid E03.9 Dyslipidemia E78.5 DVT prophylaxis Z29.9 Nonischemic cardiomyopathy I42.8
[2021-07-25 13:55] LABS: Lyme Ab IgG w/WB Rflx Negative (Negative); Lyme Ab IgM w/WB Rflx Negative (Negative)
[2021-07-25] MEDS ORDERED: METOPROLOL TARTRATE 25 MG TAB PO SCH (21:00)
[2021-07-26] MEDS ORDERED: METOPROLOL SUCC 25MG EXT REL TAB PO SCH (09:00)
== END 2021-07-25 14:00 | disposition home or self-care (01) | DRG 281 ==
LOC: ED 15:55 → SUATTDRO 23:40 → EDINP 23:40 → 1E 07-23 02:05

== ENCOUNTER 2025-05-21 21:15 | Inpatient (IN) ==
--- NOTE | 2025-05-21 22:06 | Emergency Department Note ---
Impression & Plan Closed tibia fracture Admission ED Provider Note HPI: History obtained from patient. The patient is a 69-year-old female who presents the emergency department with a chief complaint of a left ankle injury after tripping when she was in her garden. Patient states that she fell and twisted her left ankle. She states that she was in the garden for about 30 minutes before her got home and called 911. On arrival here to the ED the patient has a noted deformity of the left ankle with internal rotation of the left foot. There is no evidence of any open wounds or bleeding. Patient has motor and sensory function intact distally in the left foot with a palpable dorsalis pedis pulse on my exam. Patient denies any other injuries. ROS: - Per HPI Differential Diagnosis: Ankle fracture, ankle dislocation, ankle sprain, foot fracture/metatarsal fractures, amongst other potential pathologies. *Outpatient medications and allergy history reviewed. PE: General: Alert HEENT: Normocephalic, trachea midline Eyes: Extraocular eye movement is intact, no scleral erythema Pulmonary: Clear to auscultation bilaterally, no wheezing Cardio: Regular rate and rhythm GI: Abdomen is soft to palpation : No suprapubic tenderness MSK: Deformity noted with internal rotation of the foot with deformity at the distal aspect of the left tibia/fibula, no evidence of any open wounds or lacerations, there is a palpable dorsalis pedis pulse in the distal left lower extremity/foot, motor and sensory function is otherwise intact in the left foot on arrival Skin: No evidence of rash Neuro: Alert, no focal deficits Psychiatric: Cooperative 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 X-ray imaging of the left ankle confirms evidence of oblique fractures of the distal tibia/fibula on the left side. Lab work does not show any evidence of any critical findings. Following discussion with the patient, she was given IV pain medicine here in the ED. Orthopedics was consulted under the service of Dr. Medina, patient was evaluated at the bedside by Yeimy Bernard PA-C. Following verbal consent from the patient, she was given a dose of IV fentanyl and traction was applied to the patient's left foot with more anatomic appearing alignment of the left foot distal to the fracture site achieved. Motor and sensory function remained intact in the left lower extremity following reduction technique. Patient was placed in a long posterior splint. Plan will be for admission to the medicine service with orthopedic consultation with plan for operative intervention in the morning. Patient was in agreement to this plan. Case was discussed with the on-call hospitalist, Dr. Walter, and the patient was placed for admission in stable condition with orthopedic consultation. Consultants/Discussions held with other healthcare providers: - Orthopedics, Dr. Medina - Hospitalist, Dr. Walter Disposition discussion held by myself with: - Patient Diagnosis: 1. Distal oblique tibia/fibula fracture, closed, left-sided Disposition: Admission Maldonado Martines DO Emergency Medicine Past Med/Surg History Problem List (Updated 05/22/25 @ 10:10 by Maldonado Martines DO) Closed tibia fracture (Acute) Closed fracture of left distal tibia Hypoxia Ambulatory dysfunction Ankle fracture, left Fall COVID (Acute) Anastomotic ulcer Anemia Hypertension Encounter for pre-operative examination Elevated liver enzymes Vitamin D deficiency Systolic heart failure Pulmonary hypertension Abnormal ECG (Acute) Dyslipidemia Controlled type 1 diabetes mellitus, with long-term current use of insulin Anxiety and depression Hypothyroid Thrombocytopenia (Acute) Pancreatic mass (Acute) Proctocolitis (Acute) Hypercapnic respiratory failure, chronic (Acute) Medical History History of radioactive iodine thyroid ablation Insulin pump in place History of COVID-26 AUG 2021 C. difficile colitis HX CDIFF 2019 Depression Thyroid disease had radioactive iodine ablation Borderline high cholesterol Nonischemic cardiomyopathy PT REPORTS HX OF "BROKEN HEART SYNDROME" Diabetes mellitus Surgical History History of cataract surgery bilt History of sinus surgery X3 History of colonoscopy History of cardiac cath HX BROKEN HEART SYNDROME...JUL 2021 - NO FINDINGS Hx of section X2 History of gastric bypass Family History Brother Sleep apnea Other Family history of diabetes mellitus No family history of adverse response to anesthesia Social History Smoking Status: Never smoker Tobacco Type: Cigarettes Second Hand Exposure: No; Do You Dip or Chew Tobacco: No; Hx Alcohol Use: Yes Alcohol type: wine Hx Substance Use: No Preferred Language: Polish Communication Ability: Effective Battery Charger Required: No Beliefs That Will Affect Care: None marital status: Current Living Situation: Spouse Feels Safe at Home: Yes Safety Concerns: Feels Safe At This Time Assistive Devices: Contacts Allergies Allergies Allergy/AdvReac Type Severity Reaction Status Date / Time petrolatum,white Allergy Severe Swelling Verified 05/22/25 00:55 [From Petroleum Jelly] around eyes No Known Drug Allergies Allergy Unknown Verified 05/22/25 00:55 Home Meds Home Medications Medication Instructions Recorded Confirmed cyanocobalamin (vitamin B-12) 1,000 mcg IM UD 08/25/19 05/22/25 1,000 mcg/mL injection solution bupropion HCl 300 mg 24 hr tablet, 300 mg PO QAM 01/12/20 05/22/25 extended release diphenhydramine HCl 25 mg capsule 25 mg PO TID PRN Allergy Symptoms 11/02/20 05/22/25 (Benadryl) venlafaxine 75 mg capsule,extended 225 mg PO QAM 08/11/21 05/22/25 release 24 hr blood sugar diagnostic (Accu-Chek 05/11/22 02/12/25 Guide test strips) Previous Rx's Medication Instructions Recorded acetone (urine) test #25 ea 05/09/19 glucagon 3 mg/actuation nasal spray 3 mg intranasal UD PRN 02/13/24 Hypoglycemia #2 ea insulin aspart U-100 100 unit/mL 35 unit (0.35 mL) subcut DAILY #30 10/14/24 subcutaneous solution (Novolog mL U-100 Insulin aspart) pantoprazole 40 mg tablet,delayed 40 mg PO DAILY #90 tabs 10/14/24 release budesonide 0.5 mg/2 mL suspension 0.5 mg (2 mL) inhalation DAILY 30 10/15/24 for nebulization days #60 mL amlodipine 5 mg tablet 5 mg PO DAILY #90 tabs 01/08/25 losartan 50 mg tablet 50 mg PO BID #180 tabs 01/10/25 Levoxyl 137 mcg tablet 137 mcg PO DAILY #90 tabs 02/12/25 (levothyroxine) Results & Data (ED) Vital Signs Vital Signs - 24 hr 05/21/25 21:07 05/21/25 21:33 05/21/25 22:09 Temperature 36.7 C Temperature Source Oral Pulse Rate 97 H 88 86 Pulse Rate from SpO2 Sensor 90 89 Pulse Rhythm Regular Pulse Strength Normal Respiratory Rate 20 15 19 Respiratory Effort / Characteristics Non-Labored Spontaneous Respiratory Depth Normal Respiratory Pattern Regular Blood Pressure 131/78 131/78 127/74 Blood Pressure Mean 95 95 91 Blood Pressure Position Lying Pulse Oximetry 97 98 90 Oxygen Delivery Method Room Air Oxygen Flow Rate Sepsis Recent Fever Within 48 Hours No Sepsis New/Unexplained Change in Mental Status No Sepsis Action Taken by Nursing No Action Required 05/21/25 22:20 05/21/25 22:52 05/21/25 23:00 Temperature Temperature Source Pulse Rate 98 H Pulse Rate from SpO2 Sensor Pulse Rhythm Pulse Strength Respiratory Rate 18 Respiratory Effort / Characteristics Respiratory Depth Respiratory Pattern Blood Pressure 120/68 Blood Pressure Mean 78 Blood Pressure Position Pulse Oximetry 96 99 Oxygen Delivery Method Room Air Nasal Cannula Nasal Cannula Oxygen Flow Rate 2 2 Sepsis Recent Fever Within 48 Hours Sepsis New/Unexplained Change in Mental Status Sepsis Action Taken by Nursing 05/21/25 23:30 05/21/25 23:36 05/22/25 00:00 Temperature Temperature Source Pulse Rate 102 H 102 H 100 H Pulse Rate from SpO2 Sensor 101 H Pulse Rhythm Pulse Strength Respiratory Rate 22 17 22 Respiratory Effort / Characteristics Respiratory Depth Respiratory Pattern Blood Pressure 124/71 142/82 H Blood Pressure Mean 81 98 Blood Pressure Position Pulse Oximetry 97 99 97 Oxygen Delivery Method Nasal Cannula Oxygen Flow Rate 2 Sepsis Recent Fever Within 48 Hours Sepsis New/Unexplained Change in Mental Status Sepsis Action Taken by Nursing 05/22/25 00:30 05/22/25 01:00 Temperature Temperature Source Pulse Rate 103 H Pulse Rate from SpO2 Sensor Pulse Rhythm Pulse Strength Respiratory Rate 22 Respiratory Effort / Characteristics Respiratory Depth Respiratory Pattern Blood Pressure 130/84 141/72 H Blood Pressure Mean 99 82 Blood Pressure Position Pulse Oximetry 98 Oxygen Delivery Method Nasal Cannula Oxygen Flow Rate 2 Sepsis Recent Fever Within 48 Hours Sepsis New/Unexplained Change in Mental Status Sepsis Action Taken by Nursing Laboratory Data 05/21/25 21:30 05/21/25 21:30 Lab Results 05/21/25 05/21/25 Range/Units 21:30 22:50 WBC 6.23 (4.8-10.8) K/ul RBC 4.17 L (4.20-5.40) M/uL Hgb 11.1 L (12.0-16.0) g/dl Hct 35.2 L (37.0-47.0) % MCV 84.4 (80.0-100.0) fL MCH 26.6 (25.0-34.0) pg MCHC 31.5 L (32.0-36.0) g/dL RDW Std Deviation 46.7 H (36.4-46.3) fL RDW Coeff of Bogdan 15.1 H (11.5-14.5) % Plt Count 211 (130-400) K/uL MPV 9.5 (9.4-12.4) fL Immature Gran % (Auto) 0.3 % Neut % (Auto) 50.7 % Lymph % (Auto) 38.2 % [place] % (Auto) 10.0 % Eos % (Auto) 0.0 % Baso % (Auto) 0.8 % Neut # (Auto) 3.16 (1.40-6.50) K/uL Lymph # (Auto) 2.38 (1.20-3.40) K/uL [place] # (Auto) 0.62 H (0.11-0.59) K/uL Eos # (Auto) 0.00 (0.00-0.50) K/uL Baso # (Auto) 0.05 (0.00-0.20) K/uL Immature Gran # (Auto) 0.02 (0.01-0.20) K/uL PT 10.5 (9.0-12.0) Seconds INR 1.0 (0.9-1.1) Sodium 139 (136-145) mmol/L Potassium 4.5 (3.5-5.1) mmol/L Chloride 104 (98-107) mmol/L Carbon Dioxide 26 (21-32) mmol/L Anion Gap 9 (3-11) BUN 12 (6-23) mg/dl Creatinine 0.77 (0.6-1.2) mg/dl Est Cr Clr Drug Dosing 62.0 ml/min eGFR 84.49 BUN/Creatinine Ratio 15.6 (10-20) Glucose 92 (70-99(Fasting)) mg/dl Calcium 8.8 (8.6-10.3) mg/dl Total Bilirubin 0.3 (0.2-1.0) mg/dl AST 41 H (13-39) U/L ALT 19 (7-52) U/L Alkaline Phosphatase 103 (34-104) U/L Total Protein 6.6 (6.0-8.3) gm/dl Albumin 3.9 (3.4-5.0) gm/dl Globulin 2.7 (2.5-4.0) gm/dl Albumin/Globulin Ratio 1.4 (0.9-2) Blood Type A Positive Antibody Screen NEGATIVE Administered Medications Amlodipine Besylate (Amlodipine Besylate 5 Mg Tab) 5 mg PO DAILY [facility] Stop: 06/21/25 09:29 Last Admin: 05/22/25 09:36 Dose: 5 mg Documented By: CS Bupropion HCl (Bupropion Xl 300 Mg Tabcr) 300 mg PO QAM [facility] Stop: 06/21/25 08:59 Last Admin: 05/22/25 09:04 Dose: 300 mg Documented By: LOVE Lactated Ringer's (Lr) 1,000 mls @ 80 mls/hr IV .[id number] [facility] Stop: 05/23/25 01:59 Last Admin: 05/22/25 00:57 Dose: 80 mls/hr Documented By: PJP Magnesium Sulfate/Dextrose (Magnesium Sulfate / D5w) 1 gm in 100 mls @ 50 mls/hr IV NOW [facility] Stop: 05/22/25 10:52 Last Admin: 05/22/25 09:27 Dose: 50 mls/hr Documented By: LOVE Miscellaneous (Levoxyl 137mcg - Order Awaiting Action) 1 each N/A QS [facility] Stop: 06/21/25 07:59 Last Admin: 05/22/25 08:08 Dose: Not Given Documented By: LOVE Morphine Sulfate (Morphine Sulfate 4 Mg/Ml 1 Ml Carp\\Vial) 4 mg IV Q3H PRN PRN Reason: Severe Pain (Scale 7, 8, 9,10) Stop: 06/05/25 02:51 Last Admin: 05/22/25 08:05 Dose: 4 mg Documented By: Admin: 05/22/25 03:19 Dose: 4 mg Documented By: YEISON Pantoprazole Sodium (Pantoprazole 40 Mg Tab) 40 mg PO DAILY [facility] Stop: 06/21/25 08:59 Last Admin: 05/22/25 09:04 Dose: 40 mg Documented By: LOVE Venlafaxine HCl (Venlafaxine Hcl Xr 75 Mg Capxr) 225 mg PO QAM SEMAJ Stop: 06/21/25 08:59 Last Admin: 05/22/25 09:03 Dose: 225 mg Documented By: CS Discontinued Medications Budesonide (Budesonide 0.5 Mg/2 Ml Vial (Pulmicort)) 0.5 mg INH QDR SEMAJ Stop: 06/21/25 07:59 Last Admin: 05/22/25 07:14 Dose: 0.5 mg Documented By: ANANYA Fentanyl Citrate (Fentanyl Citrate Pf 100 Mcg/2 Ml Vial) 100 mcg IV PRN STA Stop: 05/22/25 00:04 Last Admin: 05/22/25 00:11 Dose: 100 mcg Documented By: SHONNA Sodium Chloride (Nss) 1,000 mls @ 999 mls/hr IV .Q1H1M ONE Stop: 05/21/25 23:05 Last Infusion: 05/21/25 23:56 Dose: Infused Documented By: Admin: 05/21/25 22:12 Dose: 999 mls/hr Documented By: JOSE A Insulin Aspart (Insulin, Rapid-Acting Pump) 0 each SC Q6 SEMAJ; Protocol Stop: 06/21/25 05:59 Last Admin: 05/22/25 06:13 Dose: Not Given Documented By: DIMITRIOS Insulin Glargine (Lantus Per Unit Charge) 5 units SC ONE ONE Stop: 05/22/25 09:16 Last Admin: 05/22/25 09:48 Dose: Not Given Documented By: LOVE Ketorolac Tromethamine (Ketorolac Tromethamine 15 Mg/Ml Vial) 10 mg IV Q6H PRN PRN Reason: Pain Stop: 05/27/25 02:51 Last Admin: 05/22/25 06:02 Dose: 10 mg Documented By: MARGARITA Morphine Sulfate (Morphine Sulfate 4 Mg/Ml 1 Ml Carp\\Vial) 4 mg IV NOW STA Stop: 05/21/25 22:05 Last Admin: 05/21/25 22:12 Dose: 4 mg Documented By: JOSE A Morphine Sulfate (Morphine Sulfate 4 Mg/Ml 1 Ml Carp\\Vial) 4 mg IV NOW STA Stop: 05/21/25 23:54 Last Admin: 05/21/25 23:56 Dose: 4 mg Documented By: SHONNA Ondansetron HCl (Ondansetron Inj 2 Mg/Ml 2 Ml Vial) 4 mg IV NOW STA Stop: 05/21/25 22:05 Last Admin: 05/21/25 22:12 Dose: 4 mg Documented By: JOSE A Imaging Data Radiologist's Impression: Ankle X-Ray 05/21/25 21:58 Exam(s): XR LEFT ANKLE, 3+ views EXAM: XR Left Ankle Complete, 3 or More Views CLINICAL HISTORY: Reason for exam: fall. TECHNIQUE: Frontal, lateral and oblique views of the left ankle. COMPARISON: No relevant prior studies available. FINDINGS: Bones/joints: Oblique fractures of the distal tibial and fibular shafts. No dislocation. Soft tissues: Soft tissue edema and deformity. IMPRESSION: Oblique fractures of the distal tibial and fibular shafts. Electronically signed by: Otoniel Handy MD 05/21/25 22:57 PM Tibia/Fibula X-Ray 05/22/25 00:16 EXAM: XR tibia fibula LT 2V CLINICAL HISTORY: S/p reduction TECHNIQUE: X-ray of the left tibia and fibula, 2 views: AP (Anteroposterior) and lateral projections. COMPARISON: None FINDINGS: Bone: Comminuted displaced fracture of the distal tibia and fibula. A cast noted. No focal bone lesions are identified. Soft Tissue: Soft tissue edema is noted. IMPRESSION: Comminuted displaced fracture of the distal tibia and fibula. Disclaimer: A subtle bone abnormality or fracture may not be readily apparent on X-rays, thus clinical correlation and further imaging including follow-up CT, MRI, or follow-up X-rays are advised as needed. Electronically signed by Leonard Guillen 05-22-2025 01:32 AM Discharge Plan Visit Data Chief Complaint: Ankle Pain Stated Complaint: L Ankle Pain, Fall ED Provider: Maldonado Martines Discharge Problem: Closed tibia fracture Patient Disposition: Admitted As Inpatient Condition: Fair Discharge Instructions Interventions: ED Discharge Assessment Last Done: 05/22/25 02:13 Discharge Problem: Closed tibia fracture Qualifiers: Encounter type: initial encounter Tibia location: distal Fracture morphology: o ther fracture Laterality: left Qualified Code(s): S82.392A - Other fracture of lower end of left tibia, initial encounter for closed fracture
[2025-05-21] MEDS: MoRPHine SULFATE 4 MG/ML 1 ML CARP\\VIAL IV STA ×2 (22:12→23:56)
[2025-05-21] MEDS: ONDANSETRON INJ 2 MG/ML 2 ML VIAL IV STA (22:12)
[2025-05-21] MEDS: SODIUM CHLORIDE 0.9% 1,000 ML IV ONE (22:12)
[2025-05-21 22:33] LABS: Hematocrit (blood only) 35.2 % (37.0-47.0); Hemoglobin 11.1 g/dl (12.0-16.0); Immature Granulocytes # (auto) 0.02 K/uL (0.01-0.20); Immature Granulocytes % (auto) 0.3 %; Mean Corpuscular Hemoglobin 26.6 pg (25.0-34.0); Mean Corpuscular Volume 84.4 fL (80.0-100.0); Platelet Count 211 K/uL (130-400); RDW Standard Deviation 46.7 fL (36.4-46.3); Red Blood Count 4.17 M/uL (4.20-5.40); White Blood Count 6.23 K/ul (4.8-10.8)
[2025-05-21 22:41] LABS: Alanine Aminotransferase 19.0 U/L (7-52); Albumin Globulin Ratio 1.4 (0.9-2); Alkaline Phosphatase 103.0 U/L (34-104); Anion Gap 9.0 (3-11); Bilirubin,Total 0.3 mg/dl (0.2-1.0); Blood Urea Nitrogen 12.0 mg/dl (6-23); Calcium 8.8 mg/dl (8.6-10.3); Carbon Dioxide 26.0 mmol/L (21-32); Chloride 104.0 mmol/L (98-107); Creatinine Clr Calc Pharmacy 62.0 ml/min; Globulin 2.7 gm/dl (2.5-4.0); Glucose 92.0 mg/dl (70-99(Fasting)); Potassium 4.5 mmol/L (3.5-5.1); Sodium 139.0 mmol/L (136-145); Total Protein 6.6 gm/dl (6.0-8.3)
--- NOTE | 2025-05-21 22:59 | XRay Report ---
Exam(s): XR LEFT ANKLE, 3+ views EXAM: XR Left Ankle Complete, 3 or More Views CLINICAL HISTORY: Reason for exam: fall. TECHNIQUE: Frontal, lateral and oblique views of the left ankle. COMPARISON: No relevant prior studies available. FINDINGS: Bones/joints: Oblique fractures of the distal tibial and fibular shafts. No dislocation. Soft tissues: Soft tissue edema and deformity. IMPRESSION: Oblique fractures of the distal tibial and fibular shafts. Electronically signed by: Otoniel Handy MD 05/21/25 22:57 PM
[2025-05-21 23:33] LABS: INR 1.0 (0.9-1.1); Prothrombin Time 10.5 Seconds (9.0-12.0)
--- NOTE | 2025-05-22 00:46 | History & Physical Report ---
Date of Service May 22, 2025 Assessment & Plan (1) Fall: (2) Ankle fracture, left: (3) Ambulatory dysfunction: (4) Hypoxia: Plan Patient is a 69-year-old female with past medical history of type I DM with an insulin pump, hypothyroidism, gastric bypass, hypertension, anxiety and depression. Patient presented via EMS after drinking alcohol resulting in her falling in her garden. She was laying on the ground for approximately 30 minutes until her found her. She denies loss of consciousness, head strike, or blood thinner use. Imaging in the ED revealed oblique fracture of left distal tibia and fibula shafts. She is being admitted for surgical management. #fall/left ankle fracturex-ray revealed left oblique fracture of distal tibia and fibular shafts. Hemodynamically and neurovascularly intact at time of admission. Hgb 11.1 (baseline). Splint in place in ED Orthopedics team consulted - Preop type and screen and EKG ordered N.p.o. with possible surgical management 05/22 Pain control with IV Tylenol as needed, Toradol as needed, and morphine 2/4 Mg as needed (for pain not relieved by #1 and #2) Zofran as needed Received 1L NSS bolus in ED, continue fluid resuscitation with LR 80 mL/hour - repeat labs post-op #hypoxianoted to be 90% on room air. Currently 100% on 2 L nasal cannula at time of admission. Suspect secondary to home alcohol use and IV opioids in ED. Does not use oxygen at baseline. Wean oxygen as tolerated Incentive spirometry #Type I DMon insulin pump, continue. #Hypothyroidismcontinue Levoxyl #HTNhold amlodipine and losartan 05/22 with surgical management #mental healthcontinue bupropion and venlafaxine #History of gastric bypasscontinue PPI VTE ppx: SCDs, defer chemical PPx with possible surgical management Dispo: med surg Admission and Anticipated Discharge Date Admission Date: 05/22/25 History of Present Illness Chief Complaint: ankle pain Primary Care Provider: Brittney Payton MD Patient is a 69-year-old female with past medical history of type I DM with an insulin pump, hypothyroidism, gastric bypass, hypertension, anxiety and depression. Patient presented via EMS after drinking alcohol resulting in her falling in her garden. She was laying on the ground for approximately 30 minutes until her found her. She denies loss of consciousness, head strike, or blood thinner use. Imaging in the ED revealed oblique fracture of left distal tibia and fibula shafts. She is being admitted for surgical management. Patient seen at bedside. she states she had 1 glass of wine this evening and she was out in her garden and tripped over it rolling her ankle and falling to the ground. She denies any loss of consciousness or head strike. Her found her 30 minutes later and called EMS. Her pain is currently well- controlled after fentanyl 100 mcg IV, and morphine 4 Mg IV x 2 in the ED. She denies any dizziness, lightheadedness, chest pain, shortness of breath, nausea, numbness, or tingling. She denies any nicotine or significant alcohol use. She does not use any oxygen at baseline. Noted patient was 90% on room air, currently 98% on 2 L. She took all of her evening medications and does have an insulin pump for type 1 diabetes [address] in place, will continue. She wishes to be DNR/DNI. She is agreeable to surgical management Allergies Allergy/AdvReac Type Severity Reaction Status Date / Time petrolatum,white Allergy Severe Swelling Verified 05/22/25 00:55 [From Petroleum Jelly] around eyes No Known Drug Allergies Allergy Unknown Verified 05/22/25 00:55 Home Medications Medication Instructions Recorded Confirmed Type acetone (urine) test #25 ea 05/09/19 02/12/25 Rx cyanocobalamin (vitamin B-12) 1,000 mcg IM UD 08/25/19 05/22/25 History 1,000 mcg/mL injection solution bupropion HCl 300 mg 24 hr tablet, 300 mg PO QAM 01/12/20 05/22/25 History extended release diphenhydramine HCl 25 mg capsule 25 mg PO TID PRN Allergy Symptoms 11/02/20 05/22/25 History (Benadryl) venlafaxine 75 mg capsule,extended 225 mg PO QAM 08/11/21 05/22/25 History release 24 hr blood sugar diagnostic (Accu-Chek 05/11/22 02/12/25 History Guide test strips) glucagon 3 mg/actuation nasal spray 3 mg intranasal UD PRN 02/13/24 05/22/25 Rx Hypoglycemia #2 ea insulin aspart U-100 100 unit/mL 35 unit (0.35 mL) subcut DAILY #30 10/14/24 05/22/25 Rx subcutaneous solution (Novolog mL U-100 Insulin aspart) pantoprazole 40 mg tablet,delayed 40 mg PO DAILY #90 tabs 10/14/24 05/22/25 Rx release budesonide 0.5 mg/2 mL suspension 0.5 mg (2 mL) inhalation DAILY 30 10/15/24 05/22/25 Rx for nebulization days #60 mL amlodipine 5 mg tablet 5 mg PO DAILY #90 tabs 01/08/25 05/22/25 Rx losartan 50 mg tablet 50 mg PO BID #180 tabs 01/10/25 05/22/25 Rx Levoxyl 137 mcg tablet 137 mcg PO DAILY #90 tabs 02/12/25 05/22/25 Rx (levothyroxine) Past Med/Surg History Problem List (Updated 05/22/25 @ 01:14 by Wendy Celis PA-C) Hypoxia Ambulatory dysfunction Ankle fracture, left Fall COVID (Acute) Anastomotic ulcer Anemia Hypertension Encounter for pre-operative examination Elevated liver enzymes Vitamin D deficiency Systolic heart failure Pulmonary hypertension Abnormal ECG (Acute) Dyslipidemia Controlled type 1 diabetes mellitus, with long-term current use of insulin Anxiety and depression Hypothyroid Thrombocytopenia (Acute) Pancreatic mass (Acute) Proctocolitis (Acute) Hypercapnic respiratory failure, chronic (Acute) Medical History History of radioactive iodine thyroid ablation Insulin pump in place History of COVID-26 AUG 2021 C. difficile colitis HX CDIFF 2019 Depression Thyroid disease had radioactive iodine ablation Borderline high cholesterol Nonischemic cardiomyopathy PT REPORTS HX OF "BROKEN HEART SYNDROME" Diabetes mellitus Surgical History History of cataract surgery bilt History of sinus surgery X3 History of colonoscopy History of cardiac cath HX BROKEN HEART SYNDROME...JUL 2021 - NO FINDINGS Hx of section X2 History of gastric bypass Family History Brother Sleep apnea Other Family history of diabetes mellitus No family history of adverse response to anesthesia Social History Smoking Status: Former smoker Tobacco Type: Cigarettes Second Hand Exposure: No; Do You Dip or Chew Tobacco: No; Hx Alcohol Use: Yes Alcohol type: wine Hx Substance Use: No Preferred Language: Montenegrin Communication Ability: Effective Accounts Receivable Collector Required: No Beliefs That Will Affect Care: None marital status: Current Living Situation: Spouse Feels Safe at Home: Yes Assistive Devices: Contacts Review of Systems Review of Systems: see HPI Physical Exam Physical Exam: The patient is awake, alert and oriented 3, well developed and well nourished, normocephalic and atraumatic, in no acute distress. Non-toxic appearing. HEENT- EOMI, mucous membranes moist. Hearing grossly intact. Heart-normal S1 and S2. No murmurs, rubs or gallops. Lungs-clear bilaterally, no respiratory distress, no accessory muscle use. Abdomen-normal bowel sounds and soft. No ascites noted. Non-tender. Extremities- no clubbing, cyanosis, or edema. Left ankle in splint. Psychiatric-normal affect. Results & Data Results & Data Vital Signs (Past 12 Hours) Vital Signs Temp Pulse Resp BP Pulse Ox O2 Del Method O2 Flow Rate 05/22/25 00:30 130/84 05/22/25 00:00 100 H 22 142/82 H 97 05/21/25 23:36 102 H 17 99 05/21/25 23:30 102 H 22 124/71 97 Nasal Cannula 2 05/21/25 23:00 98 H 18 120/68 99 Nasal Cannula 2 05/21/25 22:52 Nasal Cannula 2 05/21/25 22:20 96 Room Air 05/21/25 22:09 86 19 127/74 90 05/21/25 21:33 88 15 131/78 98 05/21/25 21:07 36.7 C 97 H 20 131/78 97 Room Air Laboratory Results Reviewed CBC, CMP, type and screen Diagnostic Findings reviewed ankle XR Tibia/fibula XR pending at time of admission Medications Administered EDfentanyl 100 mcg IV, morphine 4 Mg IV x 2, 1L NSS bolus, Zofran 4 Mg IV ECG Additional Comments: ordered Code Status & VTE Plan Code Status dnr/dni VTE Prophylaxis Plan VTE Prophylaxis will be ordered: Yes Supervising Physician Co-Signing Physician Notes Attending addendum: I have physically seen this patient, have supervised the VICTORIANO's activities, and agree with the H&P unless as otherwise noted. Assessment and Plan: The patient is a 69-year-old female with a past medical history including type 1 diabetes mellitus on insulin pump, hypothyroidism, gastric bypass, hypertension, anxiety and depression. She presents to the emergency department after a fall in her garden, that occurred after drinking alcohol. She was laying on the ground for approximately 30 minutes for her came home and found her, and she was brought to the ED for assessment. Imaging in the ED revealed an oblique fracture of the left distal tibia and fibula shafts. She is being admitted to the [facility], with consult to orthopedic surgery Dr. Medina. Left ankle/oblique fracture of the distal tibia and fibular shafts- Splint placed in the ED N.p.o. Acetaminophen 1 g IV every 8 hours needed for mild pain or fever Toradol 15 mg IV every 6 hours as needed moderate pain Morphine sulfate 2 mg IV every 4 hours as needed for severe pain Zofran 4 mg IV every 6 hours as needed Status post 1 L normal saline bolus in the ED, continue fluid resuscitation with LR at 80 mL/h Repeat laboratories in the a.m. Hypoxia- Had transient decrease after receiving IV opioids in the ED, and will need to be monitored closely further as it administered Incentive spirometry Diabetes mellitus- Continue insulin pump and protocol Hypertension- Holding amlodipine and losartan Mental health- Continue bupropion and venlafaxine postoperatively Status post gastric bypass- Continue pantoprazole PG Care Time/CCT Total # of Minutes Spent Total Time Spent with Patient: Total time spent is greater than 50% in coordination of care (as documented) at patient's floor/unit and/or counseling patient: Coding Level of Care Code 46719 INT INP/OBS CARE 3/75MIN Diagnoses Fall W19.XXXA Ankle fracture, left S82.892A Ambulatory dysfunction R26.2 Hypoxia R09.02
[2025-05-22] MEDS: LACTATED RINGER'S 1,000 ML IV SCH (00:57)
--- NOTE | 2025-05-22 01:33 | XRay Report ---
EXAM: XR tibia fibula LT 2V CLINICAL HISTORY: S/p reduction TECHNIQUE: X-ray of the left tibia and fibula, 2 views: AP (Anteroposterior) and lateral projections. COMPARISON: None FINDINGS: Bone: Comminuted displaced fracture of the distal tibia and fibula. A cast noted. No focal bone lesions are identified. Soft Tissue: Soft tissue edema is noted. IMPRESSION: Comminuted displaced fracture of the distal tibia and fibula. Disclaimer: A subtle bone abnormality or fracture may not be readily apparent on X-rays, thus clinical correlation and further imaging including follow-up CT, MRI, or follow-up X-rays are advised as needed. Electronically signed by Leonard Guillen 05-22-2025 01:32 AM
[2025-05-22] MEDS ORDERED: DOCUSATE SODIUM 100 MG CAP PO PRN (02:52)
[2025-05-22] MEDS ORDERED: MoRPHine SULFATE 2 MG/ML CARP IV PRN (02:52)
[2025-05-22] MEDS ORDERED: GLUCOSE 10 TAB/TUBE PO PRN (02:52)
[2025-05-22] MEDS ORDERED: ACETAMINOPHEN 1,000 MG/100 ML VIAL IV PRN (02:52)
[2025-05-22] MEDS ORDERED: DEXTROSE 50% 50 ML SYRINGE IV PRN (02:52)
[2025-05-22] MEDS ORDERED: INSULIN ASPART 100 UNITS/ML VIAL SC PRN ×2 (02:52→17:15)
[2025-05-22] MEDS ORDERED: CARBOHYDRATES FOR HYPOGLYCEMIA PO PRN (02:52)
[2025-05-22] MEDS ORDERED: GLUCAGON FOR INJ 1 MG VIAL SQ PRN (02:52)
[2025-05-22] MEDS ORDERED: GLUCOSE 40% GEL 15 GM TUBE PO PRN (02:52)
[2025-05-22] MEDS ORDERED: ONDANSETRON INJ 2 MG/ML 2 ML VIAL IV PRN ×3 (02:52→16:52)
[2025-05-22] MEDS ORDERED: MELATONIN 3 MG TAB PO PRN (02:52)
[2025-05-22] MEDS: MoRPHine SULFATE 4 MG/ML 1 ML CARP\\VIAL IV PRN (03:19)
[2025-05-22] MEDS: KETOROLAC TROMETHAMINE 15 MG/ML VIAL IV PRN (06:02)
[2025-05-22] MEDS: INSULIN, Rapid-Acting PUMP SC SCH (06:13)
[2025-05-22] MEDS: BUDESONIDE 0.5 MG/2 ML VIAL (PULMICORT) INH SCH (07:14)
[2025-05-22] MEDS ORDERED: PHARMACY GLYCEMIC MGMT CONSULT PRN ×3 (08:13→16:52)
--- NOTE | 2025-05-22 08:57 | Orthopedic Consultation ---
Date of Service May 22, 2025 Assessment & Plan (1) Closed fracture of left distal tibia: I had a detailed succussion today with the patient regarding her diagnosis as well as treatment options including risk, benefits and alternatives. This would best be addressed with surgical intervention due to the displacement. Dr. Medina is aware. She is neurovascularly intact in the left lower extremity. I did discuss the patient's medical status with the hospitalist STEPHON. She is cleared for surgery from the hospitalist perspective. Plan 4 OR intervention today on 05/22/2025 for an open reduction and internal fixation of the left distal tibia and fibula. We discussed the inherent risks of surgery which inc lude, but are not limited to, infection, neurovascular injury, arthrofibrosis, need for revision surgery, need for additional surgery, and complications related to venous thromboembolic events and general and/or regional anesthesia. The patient demonstrated a good understanding, asked appropriate questions, and was agreeable to proceed with elective surgery. Consent has been taken. Dr. Medina will meet with the patient later today to answer any other questions or concerns. History of Present Illness Reason for Consultation: left leg fracture Requesting Physician: . Attending Physician: Pedro Joseph MD Shelli is a 69-year-old female who is being consulted today for her left lower leg fracture. I did see this patient in the emergency department last evening around midnight/1 AM. Yesterday, on 05/21/2025, she was in her garden when she fell. She had a noticeable deformity of her left ankle. It took about 30 minutes until her was able to notice that she was having a problem. EMS was called and she was taken to the emergency department. X-rays did show a left distal tibia and distal fibula fracture. I did assist the emergency department provider with straightening her foot and placing a splint on. She was admitted to the hospital for pain control and surgical planning. Patient states that she is doing okay at today's visit. She has been getting cramps in the left lower extremity. Denies any fever, chills or constitutional symptoms. She lives at home with her . She ambulates without assistive devices. Patient is a diabetic. No other questions or concerns today. Allergies Allergy/AdvReac Type Severity Reaction Status Date / Time petrolatum,white Allergy Severe Swelling Verified 05/22/25 00:55 [From Petroleum Jelly] around eyes No Known Drug Allergies Allergy Unknown Verified 05/22/25 00:55 Home Medications Medication Instructions Recorded Confirmed Type acetone (urine) test #25 ea 05/09/19 02/12/25 Rx cyanocobalamin (vitamin B-12) 1,000 mcg IM UD 08/25/19 05/22/25 History 1,000 mcg/mL injection solution bupropion HCl 300 mg 24 hr tablet, 300 mg PO QAM 01/12/20 05/22/25 History extended release diphenhydramine HCl 25 mg capsule 25 mg PO TID PRN Allergy Symptoms 11/02/20 05/22/25 History (Benadryl) venlafaxine 75 mg capsule,extended 225 mg PO QAM 08/11/21 05/22/25 History release 24 hr blood sugar diagnostic (Accu-Chek 05/11/22 02/12/25 History Guide test strips) glucagon 3 mg/actuation nasal spray 3 mg intranasal UD PRN 02/13/24 05/22/25 Rx Hypoglycemia #2 ea insulin aspart U-100 100 unit/mL 35 unit (0.35 mL) subcut DAILY #30 10/14/24 Rx subcutaneous solution (Novolog mL U-100 Insulin aspart) pantoprazole 40 mg tablet,delayed 40 mg PO DAILY #90 tabs 10/14/24 05/22/25 Rx release budesonide 0.5 mg/2 mL suspension 0.5 mg (2 mL) inhalation DAILY 30 10/15/24 05/22/25 Rx for nebulization days #60 mL amlodipine 5 mg tablet 5 mg PO DAILY #90 tabs 01/08/25 05/22/25 Rx losartan 50 mg tablet 50 mg PO BID #180 tabs 01/10/25 05/22/25 Rx Levoxyl 137 mcg tablet 137 mcg PO DAILY #90 tabs 02/12/25 05/22/25 Rx (levothyroxine) Past Med/Surg History Problem List (Updated 05/22/25 @ 09:00 by Yeimy Allred PA-C) Closed fracture of left distal tibia Hypoxia Ambulatory dysfunction Ankle fracture, left Fall COVID (Acute) Anastomotic ulcer Anemia Hypertension Encounter for pre-operative examination Elevated liver enzymes Vitamin D deficiency Systolic heart failure Pulmonary hypertension Abnormal ECG (Acute) Dyslipidemia Controlled type 1 diabetes mellitus, with long-term current use of insulin Anxiety and depression Hypothyroid Thrombocytopenia (Acute) Pancreatic mass (Acute) Proctocolitis (Acute) Hypercapnic respiratory failure, chronic (Acute) Medical History History of radioactive iodine thyroid ablation Insulin pump in place History of COVID-26 AUG 2021 C. difficile colitis HX CDIFF 2019 Depression Thyroid disease had radioactive iodine ablation Borderline high cholesterol Nonischemic cardiomyopathy PT REPORTS HX OF "BROKEN HEART SYNDROME" Diabetes mellitus Surgical History History of cataract surgery bilt History of sinus surgery X3 History of colonoscopy History of cardiac cath HX BROKEN HEART SYNDROME...JUL 2021 - NO FINDINGS Hx of section X2 History of gastric bypass Family History Brother Sleep apnea Other Family history of diabetes mellitus No family history of adverse response to anesthesia Social History Smoking Status: Never smoker Tobacco Type: Cigarettes Second Hand Exposure: No; Do You Dip or Chew Tobacco: No; Hx Alcohol Use: Yes Alcohol type: wine Hx Substance Use: No Preferred Language: Hungarian Communication Ability: Effective Chief Load Dispatcher Required: No Beliefs That Will Affect Care: None marital status: Current Living Situation: Spouse Feels Safe at Home: Yes Safety Concerns: Feels Safe At This Time Assistive Devices: Contacts Review of Systems All systems reviewed & are unremarkable except as noted in HPI & below. Physical Exam General: Alert and oriented. In no acute distress at today's visit. She is resting in her hospital bed. Left lower extremity is splinted with a posterior long-leg splint with a stirrup. Constitutional WD/WN, vitals as above Cardiovascular Vascularity grossly intact. Musculoskeletal Exam from last evening: Foot was internally rotated. It was lying flat against the table. Skin check satisfactory. No open wounds, skin tenting, erythema or significant edema. Lower extremity was straightened and placed in a posterior long-leg splint with a stirrup. Exam from today: She is resting in her hospital bed. Left lower extremity is elevated with pillows. Splint is intact. She is neurovascularly intact in the left lower extremity. Skin as above Results & Data Results & Data Laboratory Results . Diagnostic Findings X-ray images of the left ankle/tib-fib. IMPRESSION: Comminuted displaced fracture of the distal tibia and fibula. PG Care Time/CCT Total # of Minutes Spent Total Time Spent with Patient: Total time spent is greater than 50% in coordination of care (as documented) at patient's floor/unit and/or counseling patient: Coding Level of Care Code 87967 IN/OBS CONSULT LVL 3,45M (59 - DECISION FOR SURGERY) Medical Decision Making Moderate Complexity Diagnoses Closed fracture of left distal tibia S82.302A
[2025-05-22] MEDS: VENLAFAXINE HCL XR 75 MG CAPXR PO SCH (09:03)
--- NOTE | 2025-05-22 09:03 | Hospitalist Progress Note ---
Date of Service May 22, 2025 Assessment & Plan (1) Fall: (2) Ankle fracture, left: (3) Ambulatory dysfunction: (4) Hypoxia: Plan Patient is a 69-year-old female with PMhx of type I DM with an insulin pump, hypothyroidism, gastric bypass, hypertension, anxiety and depression. Pr esenting after a fall, denies LOC, head strike, or blood thinner use. Imaging in the ED revealed oblique fracture of left distal tibia and fibula shafts. She is being admitted for surgical management. #fall/left ankle fracturex-ray revealed left oblique fracture of distal tibia and fibular shafts. Orthopedics team - plan for OR 05/22 Pain control: IV Tylenol as needed, and morphine 2/4 Mg as needed. Torodal d/c'ed with hx of gastric bypass. Will need PO options post op Received 1L NSS bolus in ED, continue fluid resuscitation with LR 80 mL/hour while NPO Last BM 05/21: bowel regimen post OP AM CBC, BMP and Vit D #hypoxiabaseline room air - suspect secondary to pain meds Wean oxygen as tolerated Incentive spirometry #Type I DM Pump removed pre-op. Pharmacy glycemic consult Plan to reinstate pump when feeling normal post op #Hypothyroidismcontinue Levoxyl (family will need to bring in, does not tolerate generic) #HTN continue amlodipine hold losartan with surgical management #mental healthcontinue bupropion and venlafaxine #History of gastric bypasscontinue PPI avoid NSAIDs VTE ppx: SCDs, defer chemical PPx with possible surgical management Dispo: continued inpatient stay, surgery today Admission and Anticipated Discharge Date Admission Date: May 22, 2025 Subjective Patient seen lying in bed, reports no significant pain in her leg, just had a bad charely horse. plan is for OR later today insulin pump has been removed does not normally use oxygen last BM 05/21 Review of Systems Review of Systems: All systems reviewed & are unremarkable except as noted in Subjective Physical Exam Physical Exam: General: NAD, VS as above Resp: normal respiratory effort, lungs diminished in bases, on 2L CV: RRR, no murmur, Abd: normal bowel sounds, non tender, no hepatosplenomegaly Extremities: Moves all extremities, left leg in splint, able to wiggle toes bilaterally Neuro: A&O x3, Results & Data Results & Data Vital Signs (Past 12 Hours) Vital Signs Temp Pulse Pulse Resp BP BP Pulse Ox 05/22/25 07:46 05/22/25 07:36 98.2 F 107 H 16 138/81 95 05/22/25 07:14 80 16 99 05/22/25 04:54 98.2 F 106 H 16 147/80 H 97 05/22/25 02:30 05/22/25 02:30 98.2 F 106 H 147/80 H 97 05/22/25 02:00 105 H 14 123/80 97 05/22/25 01:30 104 H 18 122/76 98 05/22/25 01:00 103 H 22 141/72 H 98 05/22/25 00:30 130/84 05/22/25 00:00 100 H 22 142/82 H 97 05/21/25 23:36 102 H 17 99 05/21/25 23:30 102 H 22 124/71 97 05/21/25 23:00 98 H 18 120/68 99 05/21/25 22:52 05/21/25 22:20 96 05/21/25 22:09 86 19 127/74 90 05/21/25 21:33 88 15 131/78 98 05/21/25 21:07 98.1 F 97 H 20 131/78 97 O2 Del Method O2 Flow Rate 05/22/25 07:46 Nasal Cannula 2 05/22/25 07:36 Nasal Cannula 2 05/22/25 07:14 Nasal Cannula 2 05/22/25 04:54 Nasal Cannula 2 05/22/25 02:30 Nasal Cannula 2 05/22/25 02:30 Nasal Cannula 2 05/22/25 02:00 Nasal Cannula 2 05/22/25 01:30 05/22/25 01:00 Nasal Cannula 2 05/22/25 00:30 05/22/25 00:00 05/21/25 23:36 05/21/25 23:30 Nasal Cannula 2 05/21/25 23:00 Nasal Cannula 2 05/21/25 22:52 Nasal Cannula 2 05/21/25 22:20 Room Air 05/21/25 22:09 05/21/25 21:33 05/21/25 21:07 Room Air PG Care Time/CCT Total # of Minutes Spent Total Time Spent with Patient: Total time spent is greater than 50% in coordination of care (as documented) at patient's floor/unit and/or counseling patient: Coding Level of Care Code None Diagnoses Fall W19.XXXA Ankle fracture, left S82.892A Ambulatory dysfunction R26.2 Hypoxia R09.02
[2025-05-22] MEDS: MAGNESIUM SULFATE / D5W 1 GM/100 ML BAG IV STA (09:27)
[2025-05-22] MEDS: LANTUS PER UNIT CHARGE SC ONE (09:48)
[2025-05-22] MEDS ORDERED: ROPIVACAINE 0.5% 5 MG/ML 30 ML VIAL ONE (10:00)
--- NOTE | 2025-05-22 11:22 | Anesthesiology Consultation ---
Date of Service May 22, 2025 Assessment & Plan Chart Review Chart Review: Acceptable Risk for Surgery Consults Requested none History Surgery Operation Date: 05/22/25 07:00 Proposed Procedures p Left Distal Tibia and Fibual Fracture Open Reduction Internal Fixation - Juan Manuel Medina MD Height/Weight Height: 5 ft 6 in Weight: 56.699 kg Allergies Allergy/AdvReac Type Severity Reaction Status Date / Time petrolatum,white Allergy Severe Swelling Verified 05/22/25 10:54 [From Petroleum Jelly] around eyes No Known Drug Allergies Allergy Unknown Verified 05/22/25 10:54 Medications Home Medications Medication Instructions Recorded Confirmed Last Taken acetone (urine) test #25 ea 05/09/19 02/12/25 Unknown cyanocobalamin (vitamin B-12) 1,000 mcg IM UD 08/25/19 05/22/25 09/07/21 1,000 mcg/mL injection solution bupropion HCl 300 mg 24 hr tablet, 300 mg PO QAM 01/12/20 05/22/25 12/29/23 extended release diphenhydramine HCl 25 mg capsule 25 mg PO TID PRN Allergy Symptoms 11/02/20 05/22/25 01/10/22 (Benadryl) venlafaxine 75 mg capsule,extended 225 mg PO QAM 08/11/21 05/22/25 12/29/23 release 24 hr blood sugar diagnostic (Accu-Chek 05/11/22 02/12/25 Unknown Guide test strips) glucagon 3 mg/actuation nasal spray 3 mg intranasal UD PRN 02/13/24 05/22/25 Unknown Hypoglycemia #2 ea insulin aspart U-100 100 unit/mL 35 unit (0.35 mL) subcut DAILY #30 10/14/24 05/22/25 Unknown subcutaneous solution (Novolog mL U-100 Insulin aspart) pantoprazole 40 mg tablet,delayed 40 mg PO DAILY #90 tabs 10/14/24 05/22/25 Unknown release budesonide 0.5 mg/2 mL suspension 0.5 mg (2 mL) inhalation DAILY 30 10/15/24 05/22/25 Unknown for nebulization days #60 mL amlodipine 5 mg tablet 5 mg PO DAILY #90 tabs 01/08/25 05/22/25 Unknown losartan 50 mg tablet 50 mg PO BID #180 tabs 01/10/25 05/22/25 Unknown Levoxyl 137 mcg tablet 137 mcg PO DAILY #90 tabs 02/12/25 05/22/25 Unknown (levothyroxine) Active Medications Generic Name Dose Route Start Last Admin Trade Name Freq PRN Reason Stop Dose Admin Amlodipine Besylate 5 mg 05/22/25 09:30 05/22/25 09:36 Amlodipine Besylate 5 Mg Tab PO 06/21/25 09:29 5 mg DAILY SEMAJ Administration Bupropion HCl 300 mg 05/22/25 09:00 05/22/25 09:04 Bupropion Xl 300 Mg Tabcr PO 06/21/25 08:59 300 mg QAM SEMAJ Administration Lactated Ringer's 1,000 mls @ 80 mls/hr 05/22/25 01:00 05/22/25 00:57 Lr IV 05/23/25 01:59 80 mls/hr .[id number] SEMAJ Administration Miscellaneous 1 each 05/22/25 08:00 05/22/25 08:08 Levoxyl 137mcg - Order Awaiting Action N/A 06/21/25 07:59 Not Given QS SEMAJ Morphine Sulfate 4 mg 05/22/25 02:52 05/22/25 08:05 Morphine Sulfate 4 Mg/Ml 1 Ml Carp\\Vial IV 06/05/25 02:51 4 mg Q3H PRN Administration Severe Pain (Scale 7, 8, 9,10) Pantoprazole Sodium 40 mg 05/22/25 09:00 05/22/25 09:04 Pantoprazole 40 Mg Tab PO 06/21/25 08:59 40 mg DAILY SEMAJ Administration Venlafaxine HCl 225 mg 05/22/25 09:00 05/22/25 09:03 Venlafaxine Hcl Xr 75 Mg Capxr PO 06/21/25 08:59 225 mg QAM SEMAJ Administration NPO Date Last Intake of Fluids: 05/21/25 Time Last Intake of Fluids: 18:00 Date Last Intake of Solids: 05/21/25 Time Last Intake of Solids: 18:00 Past Medical History Medical History History of radioactive iodine thyroid ablation Insulin pump in place History of COVID-26 AUG 2021 C. difficile colitis HX CDIFF 2018 Depression Thyroid disease had radioactive iodine ablation Borderline high cholesterol Nonischemic cardiomyopathy PT REPORTS HX OF "BROKEN HEART SYNDROME" Diabetes mellitus Past Family History Family History Brother Sleep apnea Other Family history of diabetes mellitus No family history of adverse response to anesthesia Past Surgical History Surgical History History of cataract surgery bilt History of sinus surgery X3 History of colonoscopy History of cardiac cath HX BROKEN HEART SYNDROME...JUL 2021 - NO FINDINGS Hx of section X2 History of gastric bypass Social History Smoking Status: Never smoker tobacco type: cigarettes Do You Dip or Chew Tobacco: No Hx Alcohol Use: Yes Alcohol type: wine alcohol intake frequency: holidays/special occasions only Hx Substance Use: No substance use type: does not use Physical Exam Vital Signs Last Vital Signs Temp 36.9 C 05/22/25 10:38 Pulse 113 H 05/22/25 10:38 Resp 18 05/22/25 10:38 BP 147/83 H 05/22/25 10:38 Pulse Ox 99 05/22/25 10:38 O2 Del Method Nasal Cannula 05/22/25 10:38 O2 Flow Rate 2 05/22/25 10:38 Testing Laboratory Results 05/21/25 21:30 05/21/25 21:30 PT 10.5 Seconds (9.0-12.0) 05/21/25 21:30 INR 1.0 (0.9-1.1) 05/21/25 21:30 Blood Type A Positive 05/21/25 22:50 Antibody Screen NEGATIVE 05/21/25 22:50 05/22/25 05/22/25 10:46 09:09 POC Glucose 112 H 84
[2025-05-22] MEDS ORDERED: ATROPINE SULFATE 0.1 MG/ML 10ML SYR IV PRN (11:24)
[2025-05-22] MEDS ORDERED: HYDROmorphone INJ 2 MG/ML SYR/VIAL IV PRN (11:24)
[2025-05-22] MEDS ORDERED: PROMETHAZINE HCL 6.25 MG in SODIUM CHLORIDE 0.9% 50 ML IV PRN (11:24)
--- NOTE | 2025-05-22 11:24 | Electrocardiogram Report ---
Test Reason : Blood Pressure : */* mmHG Vent. Rate : 102 BPM Atrial Rate : 102 BPM P-R Int : 134 ms QRS Dur : 84 ms QT Int : 352 ms P-R-T Axes : 75 66 62 degrees QTcB Int : 458 ms Sinus tachycardia Possible Left atrial enlargement Borderline ECG When compared with ECG of 29-Dec-2023 11:27, No significant change was found Confirmed by Jesus Gipson ([id number]) on 05/22/2025 11:23:48 AM Referred By: REFERRED SELF Confirmed By: Jesus Gipson
[2025-05-22] MEDS ORDERED: MIDAZOLAM HCL 1 MG/ML 2ML VIAL ONE (11:28)
[2025-05-22] MEDS ORDERED: PROPOFOL IV EMULSION 10 MG/ML 20 ML VIAL IV ONE ×2 (11:29→14:22)
[2025-05-22] MEDS ORDERED: LIDOCAINE 2% 2 ML VIAL/AMP(20MG/ML) INFIL ONE (11:29)
[2025-05-22] MEDS ORDERED: DEXAMETHASONE SOD INJ 4 MG/ML VIAL ONE (11:34)
[2025-05-22] MEDS ORDERED: ONDANSETRON INJ 2 MG/ML 2 ML VIAL ONE (11:34)
[2025-05-22] MEDS ORDERED: INSULIN ASPART PER UNIT CHARGE SC SCH (12:00)
[2025-05-22] MEDS ORDERED: PHENYLEPHRINE 100MCG/ML 5ML SYR ONE (13:19)
[2025-05-22] MEDS ORDERED: PHENYLEPHRINE HCL 10 MG/ML VIAL ONE (13:21)
--- NOTE | 2025-05-22 14:17 | Pharmacy Report ---
Pharmacy Glycemic Short Note 2 - Date of Service May 22, 2025 - Glycemic Short BSG Results (Last 24 hours): 05/21/25 05/22/25 05/22/25 21:30 09:09 10:46 Glucose 92 POC Glucose 84 112 H OUTPATIENT ANTIDIABETIC REGIMEN: * Novolog pump (setting per most recent endocrine visit) * Basal rate (0000: 0.45 u/hr, 0200: 0.375 u/hr, 0700: 0.450 u/hr) * Bolus insulin to carb ratio (gm/unit): 0000: 11, 0600: 9.5, 1100: 11 * Correction factor (unit/mg/dL): 0000: 76, 0700: 70, 1900: 76 * Pre-meal target range: 90-140 mg/dL HbA1c: 6.7% (02/11/25) ASSESSMENT: * BW is a 69 year old female w/ well-controlled T1DM w/ insulin pump * Presented to ED via EMS due to left distal tibia fracture s/p fall * Patient had been utilizing insulin pump, but this was ordered to be discontinued by hospitalist preoperatively (ORIF today) * Patient taken to OR prior to basal insulin being administered * Discussed with CDE and plan will be to restart insulin pump postoperatively (provided patient has supplies and is able to do so) * Currently in OR - dexamethasone 4 mg IV x 1 pulled from [facility] PLAN FOR INPATIENT GLYCEMIC CONTROL: * Restart insulin pump postoperatively * If unable to restart insulin pump: * Basal insulin * Lantus 10 units SC x 1 postoperatively * Bolus insulin * NovoLog per scale ACHS or Q6hrs while NPO * Goal Range: Low 110 mg/dL - High 140 mg/dL * Correction Factor: 70 mg/dL/unit * Nutritional / Prandial insulin per carb ratio of 1 unit per 10 grams CHO consumed * May need to tighten further pending postoperatively blood glucose (if not using insulin pump)
[2025-05-22] MEDS: BUPIVACAINE/EPINEPHRINE 0.5% MPF 1:200,000 30 ML VIAL ONE (14:56)
[2025-05-22] MEDS: BACITRACIN OINT 14 GM TUBE ONE (14:57)
[2025-05-22] MEDS ORDERED: VASOPRESSIN 20 UNIT/ML VIAL ONE (15:18)
--- NOTE | 2025-05-22 16:24 | Fluoroscopy Report ---
FL tibia/fibula LT 2V CLINICAL HISTORY: LT DISTAL TIB FIB ORIF COMPARISON STUDY: 05/22/2025 FLUOROSCOPY TIME: 10 seconds FLUOROSCOPY IMAGES: 5 EXPOSURE DOSE: 0.2 mGy FINDINGS: Fluoroscopy was provided for internal fixation of the distal tibia. IMPRESSION: Intraoperative fluoroscopy. ACT 112: Negative or not required by law. Electronically signed by: Will Rowe M.D. 05/22/2025 4:22 PM
--- NOTE | 2025-05-22 16:46 | Anesthesiology Progress Note ---
Date of Service May 22, 2025 Anesthesia Post Procedure Vital Signs Vital Signs: Temp Pulse Pulse Pulse Resp BP BP 05/22/25 16:30 36.9 C 117 H 12 124/51 L 05/22/25 16:20 122 H 13 120/81 05/22/25 16:10 115 H 12 120/75 05/22/25 16:00 109 H 11 L 142/67 H 05/22/25 15:51 36.1 C L 99 H 12 103/58 L 05/22/25 10:38 36.9 C 113 H 18 147/83 H 05/22/25 09:34 137/79 05/22/25 07:46 05/22/25 07:36 36.8 C 107 H 16 138/81 05/22/25 07:14 80 16 05/22/25 04:54 36.8 C 106 H 16 147/80 H 05/22/25 02:30 05/22/25 02:30 36.8 C 106 H 147/80 H 05/22/25 02:00 105 H 14 123/80 05/22/25 01:30 104 H 18 122/76 05/22/25 01:00 103 H 22 141/72 H 05/22/25 00:30 130/84 05/22/25 00:00 100 H 22 142/82 H 05/21/25 23:36 102 H 17 05/21/25 23:30 102 H 22 124/71 05/21/25 23:00 98 H 18 120/68 05/21/25 22:52 05/21/25 22:20 05/21/25 22:09 86 19 127/74 05/21/25 21:33 88 15 131/78 05/21/25 21:07 36.7 C 97 H 20 131/78 Pulse Ox O2 Del Method O2 Flow Rate 05/22/25 16:30 97 Nasal Cannula 2 05/22/25 16:20 96 Nasal Cannula 2 05/22/25 16:10 94 Oxymask 4 05/22/25 16:00 98 Oxymask 6 05/22/25 15:51 100 Oxymask 6 05/22/25 10:38 99 Nasal Cannula 2 05/22/25 09:34 05/22/25 07:46 Nasal Cannula 2 05/22/25 07:36 95 Nasal Cannula 2 05/22/25 07:14 99 Nasal Cannula 2 05/22/25 04:54 97 Nasal Cannula 2 05/22/25 02:30 Nasal Cannula 2 05/22/25 02:30 97 Nasal Cannula 2 05/22/25 02:00 97 Nasal Cannula 2 05/22/25 01:30 98 05/22/25 01:00 98 Nasal Cannula 2 05/22/25 00:30 05/22/25 00:00 97 05/21/25 23:36 99 05/21/25 23:30 97 Nasal Cannula 2 05/21/25 23:00 99 Nasal Cannula 2 05/21/25 22:52 Nasal Cannula 2 05/21/25 22:20 96 Room Air 05/21/25 22:09 90 05/21/25 21:33 98 05/21/25 21:07 97 Room Air Pain Intensity Left Ankle: Pain Intensity: 10 Transfer of Care Handoff Completed per policy Notes Mental Status: alert / awake / arousable Patient Amnestic to Procedure: Yes Nausea / Vomiting: adequately controlled Pain: adequately controlled Airway Patency, RR, SpO2: stable & adequate BP & HR: stable & adequate Hydration State: stable & adequate Anesthetic Complications: no major complications apparent and Pt Satisfied with anesthetic care
[2025-05-22] MEDS ORDERED: MAGNESIUM HYDROXIDE SUSP 30 ML UDC PO PRN (16:52)
[2025-05-22] MEDS ORDERED: METOCLOPRAMIDE HCL INJ 5 MG/ML 2 ML VIAL IV PRN (16:52)
[2025-05-22] MEDS ORDERED: NALOXONE HCL 0.4 MG/1 ML VIAL/CARP IV PRN (16:52)
[2025-05-22] MEDS ORDERED: ALUMINUM/MAGNESIUM SUSP 30 ML UDC PO PRN (16:52)
[2025-05-22] MEDS: INSULIN, Rapid-Acting PUMP SCH (17:38)
[2025-05-22] MEDS: KETOROLAC TROMETHAMINE 15 MG/ML VIAL IV SCH (17:44)
[2025-05-22] MEDS: SODIUM CHLORIDE 0.9% 1,000 ML IV SCH (17:45)
[2025-05-22] MEDS: ASCORBIC ACID 500 MG TAB PO SCH (17:51)
[2025-05-22] MEDS ORDERED: SODIUM CHLORIDE 0.9% 500 ML BAG IV ONE (17:56)
--- NOTE | 2025-05-22 18:02 | Operative Report ---
PG Post Operative Report Pre & Post Diagnosis Operation Date: 05/22/25 07:00 Pre-Op Diagnosis: Closed comminuted fracture of left distal tibia and fibula Post-Op Diagnosis: Closed comminuted fracture of left distal tibia and fibula I identified the patient and participated in the time-out.: Yes Procedure Operation Date: 05/22/25 07:00 Actual Procedures p Left Distal Tibia and Fibual Fracture Open Reduction Internal Fixation(Left) - Juan Manuel Medina MD Surgeon Juan Manuel Medina MD Diver Tender Yeimy Britton PA-C Estimated Blood Loss 100 Findings Consistent with Post-Op Diagnosis Specimens None Anesthesia Type General Regional Complications none Disposition Accompanied Patient To Recovery: No Indications Patient is a 69-year-old female who sustained a fall in her garden last evening. She slipped and twisted her foot and ankle. She had acute onset of pain. She is brought the emergency room where x-rays reveal a comminuted unstable distal tib-fib fracture. The patient is indicated for surgical intervention. This fracture was felt to be too distal to the nail. Description of Procedure Operative implants consists of: 1 Synthes anterior lateral distal tibial locking plate. 2. Synthes 4.0 partially-threaded cancellous lag screws x 2. 3. Synthes 4.0 fully threaded cancellous screws x 2. 4. Synthes 3.5 fully threaded cortical screws x 2. 5. Synthes 3.5 cortical locking screws x 9. The patient was taken the operating, identified, placed on the operating table in the supine position. All conductors were appropriately padded. IV antibiotics were by anesthesia team. A regional block was provided preoperatively. A general anesthetic was implemented. A left phytate was then placed. The left lower extremity was scrubbed with Hibiclens, prepped with C hloraPrep and draped in usual sterile fashion. The left leg was elevated exsanguinated with use of an Esmarch and torse placed at 300 mmHg. An anterior lateral approach to the distal tibia was then performed on made with an incision by the center lateral to the anterior crest of the tibia extending and then just extending just over the anterior aspect the tibialis anterior distally. Sharp dissection was Through subcutaneous tissues. The anterior compartment musculature was opened and it was stripped off the lateral side of the tibia. The distal fracture was identified with. It was multiple comminuted segments. We were careful not to expose the joint. Great care was taken to protect and stripping from the medial tibia. We spent some time manipulating the fragment sinking the back into position and holding with some K wires. I eventually placed two 4.0 partially-threaded cancellous lag screws across the fracture site. I then selected a anterior lateral distal tibia plate and secured it distally with two 4.0 fully threaded cancellous screws and then proximally with two 3.5 cortical screws. X-rays brought in. The fracture was anatomically aligned. We keyed in all comminuted segments. I then placed additional locking screws proximally and distally. Some final x- rays were obtained. The K wires were removed. I then did stress the ankle and the fibula did not move and there is no shifting of the mortise. We elected not to plate the fibula. The wound was irrigated. I injected locally with 30 cc of absent Marcaine with epinephrine. The tourniquet was let down for return time of 98 minutes. Hemostasis was reduced electrocautery. I then closed the extensor retinaculum of the tibialis anterior tendon with 0 Vicryl suture in a [id number] fashion. The anterior compartment musculature fascia was loosely closed with 0 Vicryl suture in a [id number] fashion. The subcutaneous tissue was then closed with 2-0 Dexon suture in a buried interrupted fashion skin was closed with 3-0 nylon suture in simple fashion. Leg was then cleaned and dried and a sterile dressing with Xeroform, 4 fours, sterile cast padding, and a well-padded posterior and stirrup splint were applied. The patient was then brought out of general esthesia and transferred to the recovery room in stable condition. Patient tolerated procedure well and there were no complications. Yeimy Karimi, my physician litigation assistant, was present for the entire procedure. Her assistance was required for proper patient positioning, prepping and draping, surgical exposure, retraction, perform the technical details of the operation, placement of the implants, closure of incision site, and placement of postoperative sterile bandage and splint. I attest to the content of the Intraoperative Record and any orders documented therein. Any exceptions are noted below.
[2025-05-22] MEDS: SODIUM CHLORIDE 0.9% 500 ML IV SCH (18:03)
[2025-05-22] MEDS: ASPIRIN 81 MG ECTAB PO SCH (20:23)
[2025-05-22] MEDS: SENNA 8.6 MG TAB PO SCH (20:23)
[2025-05-22] MEDS: DOCUSATE SODIUM 100 MG CAP PO SCH (20:23)
[2025-05-22] MEDS: ACETAMINOPHEN 500 MG TAB PO SCH (21:04)
[2025-05-23 04:59] VITALS: TEMP 98.1
[2025-05-23 07:05] VITALS: BP 112/65; PULSE 93; RESP 14; O2SAT 97
--- NOTE | 2025-05-23 08:17 | Orthopedic Progress Note ---
Date of Service May 23, 2025 Assessment & Plan (1) Closed tibia fracture: Plan: 69-year-old female with multiple medical comorbidities including significant diabetes postop day 1 from ORIF of left comminuted displaced distal tib-fib fracture. She is doing well. Pain seems much improved. She is neurologically intact. Foot is a little swollen but nothing out of the ordinary. Plan: 1. DVT prophylaxis including thigh-high teds, SCDs, aspirin twice a day for 6 weeks. 2. PT/OT. Strict nonweightbearing left lower extremity for the next 6 weeks. 3. Pain control. Seems to be doing pretty well with current pain regimen. 4. Wound care. Will eric leave this dressing on for 2 to 3 weeks until I see her back. Needs to elevate leg is much as possible. Keep dressing and splint clean dry and intact. Needs to keep all pressure off the heel. 5. Disposition. She is orthopedically okay for discharge anytime medically stable. I did see her back 2 to 3 weeks out from surgery date. Any orthopedic questions can be directly [phone]. (2) Controlled type 1 diabetes mellitus, with long-term current use of insulin: (3) Dyslipidemia: (4) Hypothyroid: (5) Anxiety and depression: Admission and Anticipated Discharge Date Admission Date: May 22, 2025 Subjective 69-year-old female postop day 1 from ORIF of a left comminuted displaced distal tib-fib fracture. She is doing pretty well this morning. Some pain in leg feels a bit swollen but looks a lot more comfortable. No new complaints. No chest pain no shortness of breath. Physical Exam Physical Exam: For examination is a pleasant middle-age female. Sitting up in bed eating her breakfast and looks comfortable. Examination left leg reveals the dressing and splint to be clean dry and intact. She can flex extend her toes appropriately. Does not appear painful. Sensory exams intact light touch. Cap brisk refill. Results & Data Vital Signs (Past 12 Hours) Vital Signs Temp Pulse Resp BP Pulse Ox O2 Del Method O2 Flow Rate 05/23/25 07:04 36.7 C 93 H 14 112/65 97 Nasal Cannula 2 05/23/25 04:59 36.7 C 106 H 18 120/68 98 Nasal Cannula 2 05/23/25 03:50 36.8 C 104 H 16 97/59 L 96 Nasal Cannula 2 05/22/25 23:53 36.7 C 109 H 18 110/67 98 Nasal Cannula 2 Laboratory Results Labs are pending. (1) Closed tibia fracture Encounter type: initial encounter Fracture morphology: other fracture Laterality: left Tibia location: distal Qualified Code(s): S82.392A - Other fracture of lower end of left tibia, initial encounter for closed fracture
[2025-05-23] MEDS: HYDROmorphone INJ 0.5 MG/0.5 ML SYR IV PRN (08:35)
[2025-05-23] MEDS: MULTIVITAMIN TAB PO SCH (08:40)
[2025-05-23 09:02] LABS: Anion Gap 3.0 (3-11); Blood Urea Nitrogen 17.0 mg/dl (6-23); Calcium 8.3 mg/dl (8.6-10.3); Carbon Dioxide 29.0 mmol/L (21-32); Chloride 106.0 mmol/L (98-107); Creatinine Clr Calc Pharmacy 64.3 ml/min; Glucose 122.0 mg/dl (70-99(Fasting)); Potassium 4.8 mmol/L (3.5-5.1); Sodium 138.0 mmol/L (136-145)
[2025-05-23 09:08] LABS: Hematocrit (blood only) 26.9 % (37.0-47.0); Hemoglobin 8.1 g/dl (12.0-16.0); Immature Granulocytes # (auto) 0.03 K/uL (0.01-0.20); Immature Granulocytes % (auto) 0.4 %; Mean Corpuscular Hemoglobin 26.4 pg (25.0-34.0); Mean Corpuscular Volume 87.6 fL (80.0-100.0); Platelet Count 161 K/uL (130-400); RDW Standard Deviation 47.6 fL (36.4-46.3); Red Blood Count 3.07 M/uL (4.20-5.40); White Blood Count 8.14 K/ul (4.8-10.8)
--- NOTE | 2025-05-23 11:51 | Discharge Summary ---
Discharge Summary Date of Service May 23, 2025 Principal Dx & Hospital Course #1 = Principal Diagnosis (1) Fall: (2) Ankle fracture, left: (3) Ambulatory dysfunction: (4) Hypoxia: Plan Patient is a 69-year-old female with PMhx of type I DM with an insulin pump, hypothyroidism, gastric bypass, hypertension, anxiety and depression. Presenting after a fall, denies LOC, head strike, or blood thinner use. Imaging in the ED revealed oblique fracture of left distal tibia and fibula shafts. She is being admitted for surgical management. #fall/left ankle fracture x-ray revealed left oblique fracture of distal tibia and fibular shafts. S/p ORIF 05/22 of L tib-fib fxr - Doing well postop, adequate pain control. Continue pain control with Tylenol as needed, very short course of oxycodone 5 mg every 8 hours was prescribed for breakthrough pain Is not able to use NSAIDs due to history of gastric bypass Recommended for home health PT on discharge Clinically stable at discharge, feeling well with no ongoing concerns. BSG adequately controlled. Was discharged to follow-up with PCP and orthopedic #hypoxia Transient, suspect due to pain meds and atelectasis Resolved with incentive spirometry use. She was with normal oxygen saturation and clear lungs at time of discharge #Type I DM Continue insulin pump on discharge. Adequate glycemic control #Hypothyroidismcontinue Levoxyl (family will need to bring in, does not tolerate generic) #HTN continue amlodipine Zoom losartan on discharge #mental healthcontinue bupropion and venlafaxine #History of gastric bypass continue PPI avoid NSAIDs Admission HPI Per Admitting Provider Patient is a 69-year-old female with past medical history of type I DM with an insulin pump, hypothyroidism, gastric bypass, hypertension, anxiety and depression. Patient presented via EMS after drinking alcohol resulting in her falling in her garden. She was laying on the ground for approximately 30 minutes until her found her. She denies loss of consciousness, head strike, or blood thinner use. Imaging in the ED revealed oblique fracture of left distal tibia and fibula shafts. She is being admitted for surgical management. Patient seen at bedside. she states she had 1 glass of wine this evening and she was out in her garden and tripped over it rolling her ankle and falling to the ground. She denies any loss of consciousness or head strike. Her found her 30 minutes later and called EMS. Her pain is currently well- controlled after fentanyl 100 mcg IV, and morphine 4 Mg IV x 2 in the ED. She denies any dizziness, lightheadedness, chest pain, shortness of breath, nausea, numbness, or tingling. She denies any nicotine or significant alcohol use. She does not use any oxygen at baseline. Noted patient was 90% on room air, currently 98% on 2 L. She took all of her evening medications and does have an insulin pump for type 1 diabetes which is in place, will continue. She wishes to be DNR/DNI. She is agreeable to surgical management Discharge Exam General: A&Ox3. NAD. Cooperative. HEENT: Atraumatic, normocephalic. Vision and hearing grossly intact Pulm: CTAB A&P. -wheezes, -rales, -rhonchi. Symmetrical chest rise. No increase in work of breathing. No respiratory distress. She is not on oxygen at time of discharge assessment Cardiac: RRR, -mrg. Radial pulses intact and symmetrical. Abdominal: Nontender, nondistended, soft. BS present. Extremities:Left foot and postoperative dressing. Able to wiggle toes. Sensation and toes intact. Cap refill in hallux brisk. Discharge Plan Discharge Items Patient Disposition: Home - Home Health Services Reason For Visit: LEFT ANKLE FX Discharge Diagnosis: Left Tibia/Fibula Fracture Condition on Discharge: Fair Activity: Per Instructions section Activity Comment: Non-weightbearing left leg Weightbearing: Left non-weightbearing Non-emergency contact: Primary Care Provider Follow-up/Referrals: Brittney Payton MD [Primary Care Provider] - Juan Manuel Medina MD [Physician] - (Orthopedic follow-up 2-3 weeks from surgery date.) Diet: Regular Addtl Attending Provider Instructions: Keep splint and dressing clean, dry, and in place until orthopedic follow-up in 2-3 weeks Keep pressure off heel Elevate left leg to level of heart or above as much as possible. Addtl Door Captain Provider Instructions: You were seen in the hospital after a fall resulting in a left displaced distal tipfib fracture. You were seen by orthopedics and underwent open reduction internal fixation on 05/22/2025. On reassessment your pain was greatly improved. You have been recommended for discharge home with home health services and to keep all pressure off of your heel. Follow-up with orthopedics has been scheduled as noted. Your pain was adequately controlled at time of discharge. You have been prescribed aspirin 81 mg twice daily for 6 weeks to reduce the risk of blood clots. You may take Tylenol 650 mg every 6 hours as needed for pain. For pain not adequately controlled with Tylenol a limited amount of oxycodone has been prescribed to you. Oxycodone is a narcotic medication that can contribute to confusion, falls and has addictive properties. Please do not use this medication unless necessary for significant pain not controlled by Tylenol. Do not drive or operate machinery while taking oxycodone. You may take oxycodone 5 mg up to every 8 hours as needed. Please continue to care for your wound as directed by your orthopedic team. If you develop any new or worsening symptoms including fever, chills, sweats, chest pain, chest pressure, difficulty breathing, uncontrolled nausea/vomiting, rash, wheezing, passing out or nearly passing out, bleeding, black/bloody bowel movements, or other new or concerning symptoms please call your primary care physician, or call 911 for re-evaluation in the emergency department if you are very concerned. Pending Studies at Discharge: No Stand-Alone Forms: My [facility] [employer], Smoking Cessation Medications and DC Order Prescriptions: New aspirin 81 mg Tablet,Delayed Release (Dr/Ec) 81 mg PO BID 42 Days Qty: 84 0RF oxycodone 5 mg Tablet 5 mg PO Q8H PRN (Reason: pain) Qty: 10 0RF Continued pantoprazole 40 mg tablet,delayed release (DR/EC) 40 mg PO DAILY Qty: 90 6RF insulin aspart U-100 [Novolog U-100 Insulin aspart] 100 unit/mL solution 35 unit subcut DAILY Qty: 30 3RF Rx Instructions: Via insulin pump; TDD 35 units (DME) acetone (urine) test strip See Dose Instructions .ROUTE .MEDSUPPLY Qty: 25 5RF Dose Instruction: As directed Rx Instructions: As directed (DME) Accu-Chek Guide test strips Strip See Rx Instructions .Route Rx Instructions: Test blood sugar 4-5 times daily bupropion HCl 300 mg tablet extended release 24 hr 300 mg PO QAM glucagon 3 mg/actuation spray,non-aerosol 3 mg intranasal UD PRN (Reason: Hypoglycemia) Qty: 2 1RF Rx Instructions: 3 mg intranasal as needed for hypoglycemia; levothyroxine [Levoxyl] 137 mcg tablet 137 mcg PO DAILY Qty: 90 3RF Rx Instructions: Do not substitute generic medications for Levoxyl diphenhydramine HCl [Benadryl] 25 mg capsule 25 mg PO TID PRN (Reason: Allergy Symptoms) budesonide 0.5 mg/2 mL suspension for nebulization 0.5 mg inhalation DAILY 30 Days Qty: 60 11RF amlodipine 5 mg tablet 5 mg PO DAILY Qty: 90 2RF losartan 50 mg tablet 50 mg PO BID Qty: 180 3RF cyanocobalamin (vitamin B-12) 1,000 mcg/mL solution 1,000 mcg IM UD Patient Comments: EVERY 3 MONTHS 1000 MCG Rx Instructions: 1,000 mcg IM every 3 months; venlafaxine 75 mg capsule,extended release 24hr 225 mg PO QAM Discharge Orders: Discharge Order (Routine); Ordered 05/23/25 Ordered By: Pedro Joseph Admission Data Admit Date/Time: 05/22/25 01:11 Attending Provider: Pedro Joseph Admit Provider: Mirza Walter Primary Care Provider: Brittney Payton Other Providers: Juan Manuel Medina; Mirza Walter; [facility] Hospital Stay Data Consultations 05/22/25 00:04 Consult Orthopedic Surgery Routine 05/22/25 00:19 ED Decision to Admit Stat Procedures Performed Operation Date: 05/22/25 07:00 Actual Procedures p Left Distal Tibia and Fibual Fracture Open Reduction Internal Fixation(Left) - Juan Manuel Medina MD Diagnostic Imagining Performed 05/22/25 FL tibia/fibula LT 2V Routine 05/22/25 11:25 US - OR guided needle placemen Stat Discharge Instructions Given to Patient (Per Discharging Provider) Keep splint and dressing clean, dry, and in place until orthopedic follow-up in 2-3 weeks Keep pressure off heel Elevate left leg to level of heart or above as much as possible. Total Time Total Time Spent Total Time Spent (In Minutes): Time spend day of discharge 35 minutes including direct patient care, documentation, review of labs and images, and coordination of care. Coding Level of Care Code 13735 INP/OBS DISCH >30 MIN Diagnoses Fall W19.XXXA Ankle fracture, left S82.892A Ambulatory dysfunction R26.2 Hypoxia R09.02
--- NOTE | 2025-05-23 13:25 | Electrocardiogram Report ---
Test Reason : Blood Pressure : */* mmHG Vent. Rate : 118 BPM Atrial Rate : 118 BPM P-R Int : 142 ms QRS Dur : 84 ms QT Int : 316 ms P-R-T Axes : 57 30 39 degrees QTcB Int : 442 ms Sinus tachycardia Otherwise normal ECG When compared with ECG of 22-May-2025 01:04, No significant change was found Confirmed by Darryn Ardon ([id number]) on 05/23/2025 1:24:50 PM Referred By: REFERRED SELF Confirmed By: Darryn Ardon
--- NOTE | 2025-05-26 09:56 | Coding Query ---
PRESENT ON ADMISSION QUERY To promote full compliance with coding requirements relating to pateint care, physician participation is requested in all cases of capsule inspector uncertainty. Please assist us with the question(s) below: Please place an X within the parenthesis (x). The following diagnosis listed in this patient's medical record require physician assistance to determine if they were present on admission (POA) or not. Please advise for each diagnosis whether it was present on admission, not present on admission, or if it was clinically undetermined. 1. ATELECTASIS (documented on Discharge Summary) ( ) Present On Admission ( ) Not Present On Admission (X ) Clinically Undetermined Reviewed H&P and admission progression. I was not the supervising admitting physician; however, on review appears to have hypoxia suspected due to narcotic analgesia. Hypoxia resolved following day. Atelectasis is not excluded, but less like to be the cause on admission. Thank you Pascale Gtz *Definition of the present on admission (POA)-Present on admission is defined as present at the time the order for inpatient admission occurs. Conditions that develop during an outpatient encounter prior to a written order for inpatient admission (including emergency department, observation, or outpatient surgery) are considered present on admission. NAKUL
== END 2025-05-23 13:31 | disposition home health service (06) | DRG 493 ==
LOC: ED 21:15 → SUATTDRO 05-22 01:11 → 3W 05-22 01:11